=== PATIENT | female | born 1970 | race Caucasian/White ===

== ENCOUNTER 2020-01-01 14:29 | Emergency (ER) | payer MEDICAID ==
--- NOTE | 2020-01-01 16:07 | ER ---
Nurse's Notes [facility] Name: Liza Vuong Age: 49 yrs Sex: Female : 1970 Arrival Date: 01/01/2020 Time: 14:34 Bed 23 Private MD: Deedee Louise Diagnosis: Periapical abscess without sinus Presentation: 12/31 14:58 Chief complaint: Patient states: right side of mouth hurts, has bad tooth on top, has iw been bad for a couple months, is due to have it pulled next month. Coronavirus screen: At this time, the client does not indicate any symptoms associated with coronavirus-19. Ebola Screen: Patient negative for fever greater than or equal to 101.5 degrees Fahrenheit, and additional compatible Ebola Virus Disease symptoms Patient denies exposure to infectious person. Patient denies travel to an Ebola-affected area in the 21 days before illness onset. No symptoms or risks identified at this time. Initial Sepsis Screen: Does the patient meet any 2 criteria? No. Patient's initial sepsis screen is negative. Does the patient have a suspected source of infection? No. Patient's initial sepsis screen is negative. Risk Assessment: Do you want to hurt yourself or someone else? Patient reports no desire to harm self or others. Onset of symptoms was October 2019. 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 - Social history:: Smoking status: Patient reports the use of cigarette tobacco products, smokes one pack cigarettes per day. Screenin:04 Abuse screen: Denies threats or abuse. Denies injuries from another. Nutritional iw screening: No deficits noted. Tuberculosis screening: No symptoms or risk factors identified. Fall Risk None identified. Assessment: 15:03 General: Appears in no apparent distress. Behavior is calm, cooperative. Pain: iw Complains of pain in right cheek. Neuro: Level of Consciousness is awake, alert, obeys commands, Oriented to person, place, time, situation, Moves all extremities. Full function. Cardiovascular: Patient's skin is warm and dry. Respiratory: Respiratory effort is even, unlabored, Respiratory pattern is regular, symmetrical. EENT: Reports pain in right cheek. Derm: Skin is intact, is healthy with good turgor. Musculoskeletal: Range of motion: intact in all extremities. Vital Signs: 14:58 BP 108 / 67; Pulse 85; Resp 16; Temp 97.6; Pulse Ox 96% on R/A; Weight 91.63 kg; Height iw 5 ft. 5 in. (165.10 cm); Pain 10/10; 14:58 Body Mass Index 33.61 (91.63 kg, 165.10 cm) iw ED Course: 14:34 Patient arrived in ED. mr 14:34 Deedee Louise is Private Physician. mr 14:59 Triage completed. iw 15:02 Arm band placed on. iw 15:03 Rafaela Marquez, RN is Primary Nurse. iw 15:04 No provider procedures requiring assistance completed. Patient did not have IV access iw during this emergency room visit. 15:15 Patient has correct armband on for positive identification. iw 15:16 [facility]aran[facility]. jrYonny 15:16 Ramsey Valles MD is Attending Physician. jr8 Administered Medications: 16:11 Drug: TORadol 30 mg Route: IM; Site: right deltoid; iw 16:11 Drug: [place] (7.5 mg-325 mg) 1 tabs Route: PO; iw Outcome: 16:06 Discharge ordered by . demetrice 16:44 Discharged to home ambulatory, with family. iw 16:44 Condition: good 16:44 Discharge instructions given to patient, family, Instructed on discharge instructions, follow up and referral plans. medication usage, Demonstrated understanding of instructions, follow-up care, medications, Prescriptions given X 2. 16:45 Patient left the ED. iw Signatures: Ny Holliday Irene, RN RN iw Wyatt Naranjo, AYDEE BAJWA jr8
--- NOTE | 2020-01-01 16:07 | EDPHYS ---
Physician Documentation [facility] Name: Liza Vuong Age: 49 yrs Sex: Female : 1970 Arrival Date: 01/01/2020 Time: 14:34 Bed 23 Private MD: Deedee Louise ED Physician Ramsey Valles HPI: 12/31 15:28 This 49 yrs old Female presents to ER via Ambulatory with complaints of jr8 Toothache. 15:28 The patient presents with pain. The problem is located in the right upper jaw. Onset: jr8 The symptoms/episode began/occurred gradually, 2 day(s) ago. Duration: The symptoms are continuous. Modifying factors: The symptoms are alleviated by nothing, the symptoms are aggravated by chewing, talking. Associated signs and symptoms: The patient has no apparent associated signs or symptoms. Severity of symptoms: At their worst the symptoms were moderate, in the emergency department the symptoms are unchanged. The patient has experienced similar episodes in the past, a few times. The patient has not recently seen a physician. 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 - Social history:: Smoking status: Patient reports the use of cigarette tobacco products, smokes one pack cigarettes per day. ROS: 15:28 Eyes: Negative for injury, pain, redness, and discharge, Neck: Negative for injury, jr8 pain, and swelling, Cardiovascular: Negative for chest pain, palpitations, and edema, Respiratory: Negative for shortness of breath, cough, wheezing, and pleuritic chest pain, Abdomen/GI: Negative for abdominal pain, nausea, vomiting, diarrhea, and constipation, Back: Negative for injury and pain, MS/Extremity: Negative for injury and deformity, Skin: Negative for injury, rash, and discoloration, Neuro: Negative for headache, weakness, numbness, tingling, and seizure. 15:28 ENT: Positive for dental pain, Gum pain Exam: 15:28 Constitutional: This is a well developed, well nourished patient who is awake, alert, jr8 and in no acute distress. Head/Face: Normocephalic, atraumatic. Eyes: Pupils equal round and reactive to light, extra-ocular motions intact. Lids and lashes normal. Conjunctiva and sclera are non-icteric and not injected. Cornea within normal limits. Periorbital areas with no swelling, redness, or edema. Neck: Trachea midline, no thyromegaly or masses palpated, and no cervical lymphadenopathy. Supple, full range of motion without nuchal rigidity, or vertebral point tenderness. No Meningismus. Cardiovascular: Regular rate and rhythm with a normal S1 and S2. No gallops, murmurs, or rubs. Normal PMI, no JVD. No pulse deficits. Respiratory: Lungs have equal breath sounds bilaterally, clear to auscultation and percussion. No rales, rhonchi or wheezes noted. No increased work of breathing, no retractions or nasal flaring. Skin: Warm, dry with normal turgor. Normal color with no rashes, no lesions, and no evidence of cellulitis. MS/ Extremity: Pulses equal, no cyanosis. Neurovascular intact. Full, normal range of motion. Neuro: Awake and alert, GCS 15, oriented to person, place, time, and situation. Cranial nerves II-XII grossly intact. Motor strength 5/5 in all extremities. Sensory grossly intact. Cerebellar exam normal. Normal gait. 15:28 ENT: Exam is negative for earache, ear discharge, TM abnormalities, nasal discharge, Mouth: Lips: moist, Oral mucosa: pink and intact, moist, Gums: reddened, swollen, on the upper right second molar and upper right first molar, Tongue: is moist, Posterior pharynx: Airway: patent, Tonsils: are normal in appearance, Uvula: midline, swelling, is not appreciated, Dental exam: dental caries, that is moderate, diffusely, fractured teeth are noted, specifically the upper right second molar (#2) and upper right first molar (#3), pain, that is moderate, specifically in the upper right second molar (#2) and upper right first molar (#3). Vital Signs: 14:58 BP 108 / 67; Pulse 85; Resp 16; Temp 97.6; Pulse Ox 96% on R/A; Weight 91.63 kg; Height iw 5 ft. 5 in. (165.10 cm); Pain 10/10; 14:58 Body Mass Index 33.61 (91.63 kg, 165.10 cm) iw MDM: 15:17 Patient medically screened. jr8 15:27 Data reviewed: vital signs, nurses notes, and as a result, I will discharge patient. jr8 Data interpreted: Pulse oximetry: on room air is 96 %. Interpretation: normal. Counseling: I had a detailed discussion with the patient and/or guardian regarding: the historical points, exam findings, and any diagnostic results supporting the discharge/admit diagnosis, the need for outpatient follow up, a dentist, to return to the emergency department if symptoms worsen or persist or if there are any questions or concerns that arise at home. Response to treatment: the patient's symptoms have mildly improved after treatment. ED course: Discussed with patient. No discernable abscess noted to gum line to drain. Swelling is noted. Will put on pain medicine and Abx. Needs to continue to f/u with dentist. If worse to come back . 12/31 15:27 Order name: Urine Microscopic Only; Complete Time: 23:01 jr8 12/31 16:09 Order name: Urine Dipstick--Ancillary (enter results); Complete Time: 23:01 bd 12/31 15:27 Order name: Urine Dipstick-Ancillary (obtain specimen); Complete Time: 16:11 jr8 Administered Medications: 16:11 Drug: TORadol 30 mg Route: IM; Site: right deltoid; iw 16:11 Drug: [place] (7.5 mg-325 mg) 1 tabs Route: PO; iw Disposition: 17:48 Co-signature as Attending Physician, Ramsey Valles MD. rn Disposition: 01/01/20 16:06 Discharged to Home. Impression: Periapical abscess without sinus. - Condition is Stable. - Discharge Instructions: Dental Abscess, Dental Pain, Root Canal. - Prescriptions for Clindamycin HCl 300 mg Oral Capsule - take 1 capsule by ORAL route every 6 hours for 10 days; 40 capsule. Ibuprofen 800 mg Oral Tablet - take 1 tablet by ORAL route every 12 hours As needed take with food; 20 tablet. - Medication Reconciliation Form, Thank You Letter, Antibiotic Education, Prescription Opioid Use form. - Follow up: Private Physician; When: 2 - 3 days; Reason: Recheck today's complaints, Continuance of care, Re-evaluation by your physician. - Problem is new. - Symptoms have improved. Signatures: Dispatcher [employer] EDRafaela Santos RN RN iw Nieto, Roman, MD MD rn Roszak, Josh, PA PA jr8 Corrections: (The following items were deleted from the chart) 16:45 16:06 01/01/2020 16:06 Discharged to Home. Impression: Periapical abscess without iw sinus. Condition is Stable. Forms are Medication Reconciliation Form, Thank You Letter, Antibiotic Education, Prescription Opioid Use. Follow up: Private Physician; When: 2 - 3 days; Reason: Recheck today's complaints, Continuance of care, Re-evaluation by your physician. Problem is new. Symptoms have improved. jr8
[2020-01-01] MEDS ORDERED: HYDROCODONE/APAP 7.5/325 MG TAB ONE (16:18)
[2020-01-01] MEDS ORDERED: KETOROLAC 30 MG/ML INJ ONE (16:18)
[2020-01-01 16:30] LABS: Urine Blood NEGATIVE (NEG); Urine Glucose NEGATIVE (NEG); Urine Protein TRACE (NEG); Urine Specific Gravity 1.025 (1.005-1.030); Urine pH 7.5 (5.0-7.0)
[2020-01-01 16:36] LABS: Urine Bacteria <20 /HPF (<20); Urine Culture Reflex Order NOT NEEDED; Urine RBC <5 /HPF (NONE SEEN)
[2020-01-01 16:37] LABS: Calcium Oxalate Crystals- Ur FEW (NONE SEEN); Urine Mucus 4+ /HPF (NONE SEEN)
[2020-01-01 17:32] VITALS: BP 108/67; TEMP 97.6; O2SAT 96
== END 2020-01-01 16:45 | disposition home or self-care (01) ==
LOC: ER 14:29
DX: K04.7 Periapical abscess without sinus (principal); Z88.0 Allergy status to penicillin; Z91.040 Latex allergy status; F17.210 Nicotine dependence, cigarettes, uncomplicated
CPT/HCPCS: 81003; 81015; 96372; 99283

== ENCOUNTER 2020-06-01 13:27 | Emergency (ER) | payer MEDICAID ==
--- NOTE | 2020-06-01 14:26 | RAD REPORT ---
EXAM DESCRIPTION: CT - Head C Spine Mpr Wo Con - 06/01/2020 1:54 pm CLINICAL HISTORY: Seizure. Head and neck injury status post fall. Head and neck pain COMPARISON: None. TECHNIQUE: Computed axial tomography of the head and cervical spine was obtained. Sagittal and coronal reconstruction was performed. All CT scans are performed using dose optimization technique as appropriate and may include automated exposure control or mA/KV adjustment according to patient size. FINDINGS: An intracranial bleed is not seen. The ventricles are normal in caliber. An extra-axial fl uid collection is not noted.Fluid within the visualized sinuses and mastoids is not seen A cervical fracture is not visualized. No dislocation is noted. Mild posterior subluxation C5 on C6. Spondylosis results in mild central spinal stenosis. Moderate foraminal stenosis is present. Left posterior-lateral disc osteophyte complex C6-7 results in mild compression upon the spinal cord. IMPRESSION: No acute intracranial abnormality is seen. A cervical fracture is not visualized. Mild posterior subluxation C5 on C6. Spondylosis results in mild central spinal stenosis. Moderate foraminal stenosis is present. Left posterior-lateral disc osteophyte complex C6-7 results in mild compression upon the spinal cord. If the patient continues to have symptoms to suggest intracranial /spinal cord pathology then MRI wou ld be recommended
[2020-06-01] MEDS ORDERED: LIDOCAINE 1% MPF 30 ML VIAL ONE (14:29)
[2020-06-01 14:46] LABS: Protime INR 0.97
[2020-06-01 14:48] LABS: Absolute Lymphocytes (CBC) 2.9 K/uL (0.7-4.9); Basophils % 0.1 % (0-1.3); Hematocrit 42.4 % (36.0-45.0); Lymphocytes % 34.2 % (15.3-44.8); MPV 9.1 fL (7.6-11.3); RBC Red Blood Cell Count 4.33 M/uL (3.86-4.86)
[2020-06-01 14:59] LABS: ALT/SGPT 18 U/L (12-78); AST/SGOT 14 U/L (15-37); Albumin 3.6 g/dL (3.4-5.0); Alkaline Phosphatase 127 U/L (45-117); BUN Blood Urea Nitrogen 10 mg/dL (7-18); Bicarbonate 24 mmol/L (21-32); Bilirubin Direct < 0.1 mg/dL (0-0.2); Bilirubin Total 0.3 mg/dL (0.2-1.0); Glucose Level 86 mg/dL (74-106); Potassium 3.8 mmol/L (3.5-5.1); Protein, Total 6.9 g/dL (6.4-8.2); Sodium Level 144 mmol/L (136-145)
[2020-06-01 15:07] LABS: Barbiturates NEGATIVE (NEGATIVE); Benzodiazepines NEGATIVE (NEGATIVE); Cocaine NEGATIVE (NEGATIVE); METHAMPHETAM NEGATIVE (NEGATIVE); Methadone NEGATIVE (NEGATIVE); Opiates NEGATIVE (NEGATIVE); Phencyclidine NEGATIVE (NEGATIVE); THC Cannibis NEGATIVE (NEGATIVE)
[2020-06-01 15:23] LABS: Urine Blood NEGATIVE (NEG); Urine Glucose NEGATIVE (NEG); Urine Protein NEGATIVE (NEG); Urine pH 6.5 (5.0-7.0)
--- NOTE | 2020-06-01 15:28 | ER ---
Nurse's Notes [facility] Name: Liza Vuong Age: 50 yrs Sex: Female : 1970 Arrival Date: 06/01/2020 Time: 13:33 Bed 4 Private MD: Diagnosis: Epilepsy and recurrent seizures;Scalp Laceration Presentation: 06/01 13:34 Chief complaint: EMS states: about 30mins ago patient had a seizure fell from standing zb and hit her head on a chair. + LOC. patient has 1 inch laceration to the back of the head . VSS. patient aox4 upon EMS arrival . Coronavirus screen: At this time, the client does not indicate any symptoms associated with coronavirus-19. Ebola Screen: No symptoms or risks identified at this time. Initial Sepsis Screen: Does the patient meet any 2 criteria? No. Patient's initial sepsis screen is negative. Does the patient have a suspected source of infection? No. Patient's initial sepsis screen is negative. Risk Assessment: Do you want to hurt yourself or someone else? Patient reports no desire to harm self or others. 13:34 Acuity: RUDDY 3 zb 13:34 Method Of Arrival: EMS: [facility] zb 14:53 Care prior to arrival: None. Mechanism of Injury: Fall from standing position. an zb unknown distance. Trauma event details: Injury occurred in the [facility]. 14:54 Onset of symptoms was June 01, 2020. zb Triage Assessment: 13:41 General: Appears in no apparent distress. uncomfortable, Behavior is calm, cooperative, zb appropriate for age. Pain: Complains of pain in left parietal area and right parietal area Pain does not radiate. Pain currently is 5 out of 10 on a pain scale. Quality of pain is described as tender, Pain began suddenly, 30 min ago. Is continuous. EENT: No signs and/or symptoms were reported regarding the EENT system. Neuro: Level of Consciousness is awake, alert, obeys commands, Oriented to person, place, time, situation, Moves all extremities. Gait is unsteady, Speech is normal, Facial symmetry appears normal, Pupils are PERRLA. Cardiovascular: Capillary refill < 3 seconds Patient's skin is warm and dry. Respiratory: Airway is patent Trachea midline Respiratory effort is even, unlabored, Respiratory pattern is regular, symmetrical. GI: Abdomen is round non-distended. : No signs and/or symptoms were reported regarding the genitourinary system. Derm: Skin is healthy with good turgor, Skin is dry, Skin is normal, Wound noted scalp. Musculoskeletal: Range of motion: intact in all extremities. Injury Description: Laceration sustained to scalp is clean, bleeding moderately, was sustained 30-60 minutes ago. a small amount of bleeding noted at this time. 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 - Social history:: Smoking status: Patient reports the use of cigarette tobacco products, smokes one pack cigarettes per day. - Immunization history: Last tetanus immunization: unknown. Screenin:56 Abuse screen: Denies threats or abuse. Denies injuries from another. Tuberculosis zb screening: No symptoms or risk factors identified. Fall risk At risk due to prior history of falls, history of seizures. . 14:52 Fall Risk Fall in past 12 months (25 points). Secondary diagnosis (15 points) seizures, zb IV access (20 points). Ambulatory Aid- None/Bed Rest/Nurse Assist (0 pts). Gait- Normal/Bed Rest/Wheelchair (0 pts) Mental Status- Oriented to own ability (0 pts). Total Mejias Fall Scale indicates High Risk Score (45 or more points). Fall prevention measures have been instituted. Side Rails Up X 2 Placed Close to Nursing Station Frequent Obs/Assessments Occuring As available patient and family educated on Fall Prevention Program and Strategies. 14:54 Nutritional screening: No deficits noted. zb Primary Survey: 13:52 NO uncontrolled hemorrhage observed. Breathing/Chest: Respiratory pattern: regular, zb Respiratory effort: spontaneous, unlabored, Breath sounds: clear. Circulation: Cardiac rhythm: sinus bradycardia Heart tones present. Pulses: palpable right radial artery and left radial artery. Skin color: pink. Disability Alert. Exposure/Environment: Obvious injury(ies) are noted at this time: laceration scalp of head. Reassessment Airway Airway Patent Breathing/Chest Respiratory pattern Regular Respiratory effort Spontaneous Unlabored Breath sounds Clear Chest inspection Symmetrical Circulation Heart rhythm Sinus julisa Heart tones Present Pulses Palpable Color Cucumber Temperature Warm Disability Alert. Secondary Survey: 13:54 HEENT: Head Other 1 inch laceration to back of head. Gastrointestinal: No deficits zb noted. : No deficits noted. Musculoskeletal: No deficits noted. Range of motion: intact in all extremities. Assessment: 13:46 Reassessment: see triage note. zb 14:55 Reassessment: Patient appears in no apparent distress at this time. Patient and/or zb family updated on plan of care and expected duration. Pain level reassessed. Patient is alert, oriented x 3, equal unlabored respirations, skin warm/dry/pink. pt remain bradycardia. pt ambulated to restroom, gait steady and even. 15:59 Reassessment: Patient appears in no apparent distress at this time. Patient and/or zb family updated on plan of care and expected duration. Pain level reassessed. Patient is alert, oriented x 3, equal unlabored respirations, skin warm/dry/pink. no changes at this time. discharge information give. patient has steady gait. informed on how to care for nilda. Vital Signs: 13:34 BP 124 / 66; Pulse 55; Resp 14; Temp 97.3; Pulse Ox 99% ; Weight 88.9 kg; Height 5 ft. zb 5 in. (165.10 cm); Pain 5/10; 14:55 BP 93 / 72; Pulse 54; Resp 18; Pulse Ox 100% on R/A; zb 15:05 BP 108 / 65; Pulse 55; Resp 18; Pulse Ox 96% on R/A; zb 15:59 BP 99 / 66; Pulse 54; Resp 18; Pulse Ox 99% on R/A; zb 13:34 Body Mass Index 32.62 (88.90 kg, 165.10 cm) zb Welch Coma Score: 14:50 Eye Response: spontaneous(4). Verbal Response: oriented(5). Motor Response: obeys zb commands(6). Total: 15. Trauma Score (Adult): 14:50 Eye Response: spontaneous(1); Verbal Response: oriented(1); Motor Response: obeys zb commands(2); Systolic BP: > 89 mm Hg(4); Respiratory Rate: 10 to 29 per min(4); Welch Score: 15; Trauma Score: 12 ED Course: 13:33 Patient arrived in ED. zb 13:33 Fredy Dukes PA is PHCP. jmm 13:33 Ramsey Valles MD is Attending Physician. manishm 13:36 Triage completed. zb 13:47 Corine Cronin, RN is Primary Nurse. zb 13:54 CT Head C Spine In Process Unspecified. EDMS 14:18 Initial lab(s) drawn, by md, sent to lab. Inserted saline lock: 20 gauge in left em1 antecubital area, using aseptic technique. Blood collected. 14:51 Assist provider with laceration repair on scalp using nilda. Set up tray. Performed zb by Fredy BAJWA Patient tolerated well. 14:51 Arm band placed on left wrist. zb 14:54 Patient maintains SpO2 saturation greater than 95% on room air. zb 14:54 Patient has correct armband on for positive identification. claim professional on. Pulse zb ox on. NIBP on. Door closed. Noise minimized. Warm blanket given. 16:00 IV discontinued, intact, bleeding controlled, No redness/swelling at site. Pressure zb dressing applied. 16:01 Thermoregulation: warm blanket given to patient. zb Administered Medications: 15:01 Not Given (providers discretion ): Lidocaine (1 %) 20 ml 20 ml Infiltration once; to zb bedside Intake: 14:50 PO: 0ml; Total: 0ml. zb Outcome: 15:28 Discharge ordered by . manish 16:00 Discharged to home via wheelchair. zb 16:00 Condition: stable 16:00 Discharge instructions given to patient, Instructed on discharge instructions, follow up and referral plans. Demonstrated understanding of instructions, follow-up care. 16:00 Patient's length of stay was not longer than 2 hours. zb 16:06 Patient left the ED. irving Signatures: Dispatcher [employer] EDMS Fredy Dukes PA PA jmm Martinez, Eric em1 Corine Cronin, JACK RN irving
--- NOTE | 2020-06-01 15:29 | EDPHYS ---
Physician Documentation [facility] Name: Liza Vuong Age: 50 yrs Sex: Female : 1970 Arrival Date: 06/01/2020 Time: 13:33 Bed 4 Private MD: ED Physician Ramsey Valles HPI: 06/01 13:39 This 50 yrs old Female presents to ER via EMS with complaints of Fall Injury, jmm Seizure. 13:39 The patient presents after having a single isolated seizure. Character of seizure(s): jmm Loss of consciousness: the patient experienced loss of consciousness, Motor activity: generalized, Incontinence: none. Seizure onset: today. Seizure Hx: Cause: head injury, Usual frequency:. Associated injury: Head/face:. 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 Patient states she takes tegretol and topiramate for seizures. Patient states she normally has 2 seizures a day. . 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 - Social history:: Smoking status: Patient reports the use of cigarette tobacco products, smokes one pack cigarettes per day. - Immunization history: Last tetanus immunization: unknown. ROS: 13:39 Constitutional: Negative for fever, chills, and weight loss, Cardiovascular: Negative jmm for chest pain, palpitations, and edema, Respiratory: Negative for shortness of breath, cough, wheezing, and pleuritic chest pain. 13:39 Neuro: Positive for headache, loss of consciousness, seizure activity. 13:39 All other systems are negative. Exam: 13:39 Constitutional: This is a well developed, well nourished patient who is awake, alert, jmm and in no acute distress. 13:39 Eyes: EOMI, no conjunctival erythema appreciated ENT: Moist Mucus Membranes Neck: Trachea midline, Supple Chest/axilla: Normal chest wall appearance and motion. Cardiovascular: Regular rate and rhythm. No edema appreciated Respiratory: Normal respirations, no respiratory distress appreciated Abdomen/GI: Non distended, soft Back: Normal ROM 13:39 MS/ Extremity: Moves all extremities, no obvious deformities appreciated, no edema noted to the lower extremities Neuro: Awake and alert, normal gait Psych: Behavior is normal, Mood is normal, Patient is cooperative and pleasant 13:39 Head/face: Noted is a laceration(s), that is linear, 3 cm(s). 13:39 Skin: injury, laceration(s), the wound is approximately 3 cm(s), of the scalp. Vital Signs: 13:34 BP 124 / 66; Pulse 55; Resp 14; Temp 97.3; Pulse Ox 99% ; Weight 88.9 kg; Height 5 ft. zb 5 in. (165.10 cm); Pain 5/10; 14:55 BP 93 / 72; Pulse 54; Resp 18; Pulse Ox 100% on R/A; zb 15:05 BP 108 / 65; Pulse 55; Resp 18; Pulse Ox 96% on R/A; zb 15:59 BP 99 / 66; Pulse 54; Resp 18; Pulse Ox 99% on R/A; zb 13:34 Body Mass Index 32.62 (88.90 kg, 165.10 cm) zb Skye Coma Score: 14:50 Eye Response: spontaneous(4). Verbal Response: oriented(5). Motor Response: obeys zb commands(6). Total: 15. Trauma Score (Adult): 14:50 Eye Response: spontaneous(1); Verbal Response: oriented(1); Motor Response: obeys zb commands(2); Systolic BP: > 89 mm Hg(4); Respiratory Rate: 10 to 29 per min(4); [place] Score: 15; Trauma Score: 12 Laceration: 15:27 Wound Repair of 3cm ( 1.2in ) subcutaneous laceration. Distal neuro/vascular/tendon jmm intact. Anesthesia: Local anesthetic administered with 1% lidocaine. Wound prep: Simple cleansing by nurse. Skin closed with 3 1-0 Karlie using staple gun. Patient tolerated well. MDM: 13:39 Patient medically screened. [facility] 15:25 Data reviewed: vital signs, nurses notes. Counseling: I had a detailed discussion with [facility] the patient and/or guardian regarding: the historical points, exam findings, and any diagnostic results supporting the discharge/admit diagnosis, lab results, radiology results, the need for outpatient follow up, to return to the emergency department if symptoms worsen or persist or if there are any questions or concerns that arise at home. ED course: Patient is alert and non toxic in appearance in the ED. No seizure activity in the ED. Advised to follow up with neuro for reevaluation. Patient otherwise given strict return precautions. Patient understood and agrees with the plan of care. . 06/01 13:34 Order name: Acetaminophen; Complete Time: 15:13 [facility] 06/01 13:34 Order name: Basic Metabolic Panel; Complete Time: 15:13 [facility] 06/01 13:34 Order name: CBC with Diff; Complete Time: 14:50 [facility] 06/01 13:34 Order name: ETOH Level; Complete Time: 14:45 [facility] 06/01 13:34 Order name: Hepatic Function; Complete Time: 15:13 [facility] 06/01 13:34 Order name: PT-INR; Complete Time: 14:50 [facility] 06/01 13:34 Order name: Ptt, Activated; Complete Time: 14:50 [facility] 06/01 13:34 Order name: Salicylate; Complete Time: 15:13 [facility] 06/01 13:34 Order name: Urine Drug Screen; Complete Time: 15:13 [facility] 06/01 13:34 Order name: Carbamazepine (tegretol); Complete Time: 15:13 [facility] 06/01 13:34 Order name: CT Head C Spine; Complete Time: 14:29 [facility] 06/01 14:49 Order name: Urine Dipstick--Ancillary (enter results); Complete Time: 15:26 06/01 14:49 Order name: Urine --Ancillary (enter results); Complete Time: 15:26 06/01 13:34 Order name: EKG; Complete Time: 13:35 [facility] 06/01 13:34 Order name: EKG - Nurse/Tech; Complete Time: 14:42 [facility] 06/01 13:34 Order name: IV Saline Lock; Complete Time: 14:18 [facility] 06/01 13:34 Order name: Labs collected and sent; Complete Time: 14:18 [facility] 06/01 13:34 Order name: Urine Dipstick-Ancillary (obtain specimen); Complete Time: 14:42 [facility] 06/01 14:22 Order name: Labs - recollect needed: recollect lavender tube; Complete Time: 14:42 eb Administered Medications: 15:01 Not Given (providers discretion ): Lidocaine (1 %) 20 ml 20 ml Infiltration once; to zb bedside Disposition: 16:21 Co-signature as Attending Physician, Ramsey Valles MD. rn Disposition: 06/01/20 15:28 Discharged to Home. Impression: Epilepsy and recurrent seizures, Scalp Laceration. - Condition is Stable. - Discharge Instructions: Laceration Care, Adult, Seizure, Adult. - Medication Reconciliation Form, Thank You Letter, Antibiotic Education, Prescription Opioid Use form. - Follow up: Private Physician; When: 1 week; Reason: Recheck today's complaints, Continuance of care, Staple/Suture removal, Re-evaluation by your physician. Signatures: Dispatcher [employer] EDMS Fredy Dukes PA PA jmm Nieto, Roman, MD MD rn Botello, Elizabeth eb Brown, Zipporah, RN RN zb Corrections: (The following items were deleted from the chart) 16:05 15:28 06/01/2020 15:28 Discharged to Home. Impression: Epilepsy and recurrent seizures; zb Scalp Laceration. Condition is Stable. Forms are Medication Reconciliation Form, Thank You Letter, Antibiotic Education, Prescription Opioid Use. Follow up: Private Physician; When: 1 week; Reason: Recheck today's complaints, Continuance of care, Staple/Suture removal, Re-evaluation by your physician. [facility] 16:06 16:05 06/01/2020 15:28 Discharged to Home. Impression: Epilepsy and recurrent seizures; zb Scalp Laceration. Condition is Stable. Discharge Instructions: Seizure, Adult, Laceration Care, Adult. Forms are Medication Reconciliation Form, Thank You Letter, Antibiotic Education, Prescription Opioid Use. Follow up: Private Physician; When: 1 week; Reason: Recheck today's complaints, Continuance of care, Staple/Suture removal, Re-evaluation by your physician. [place]
[2020-06-01 16:11] VITALS: TEMP 97.3
[2020-06-01 16:14] VITALS: BP 99/66; O2SAT 99
== END 2020-06-01 16:06 | disposition home or self-care (01) ==
LOC: ER 13:27
PROC: 0JQ00ZZ Repair Scalp Subcutaneous Tissue and Fascia, Open Approach (ICD-10-PCS; principal; 2020-06-01)
DX: S01.01XA Laceration without foreign body of scalp, initial encounter (principal); W19.XXXA Unspecified fall, initial encounter; Y93.9 Activity, unspecified; Y92.9 Unspecified place or not applicable; Z88.0 Allergy status to penicillin; Z88.5 Allergy status to narcotic agent; Z91.040 Latex allergy status; Z91.048 Other nonmedicinal substance allergy status; F17.210 Nicotine dependence, cigarettes, uncomplicated
CPT/HCPCS: 36415; 70450; 72125; 80048; 80076; 80156; 80307; 80320; 80329; 81003; 81025; 85025; 85610; 85730; 99285

== ENCOUNTER 2021-11-14 15:27 | Emergency (ER) | payer OTHER ==
--- OUTSIDE RECORDS SUMMARY | 2021-11-14 15:32 | XMS REPORT | Continuity of Care Document ---
:1970 Author Organization [facility] t Address [address] [place] [address] Care Team Providers Name Role Phone Funmilayo Louise Primary Care Physician Vickey MCDONALD, Tiffanie Good Attending Clinician Payers Payer Name Policy Type Policy Number Effective Date Expiration Date S ource Problems Condition Condition Condition Status Onset Resolution Last Treating Co mments Source Name Details Category Date Date Treatment Clinician Date Seizures Seizures Disease Active 2020-04 Unive rs 0-11 ity of 00:00: [place] 00 [facility] Branch Cigarette Cigarette Disease Active 2020-04 Uni vers nicotine nicotine 0-11 [place] without 00 Medical complicati complicati Br anch on on Epilepsy Epilepsy Problem Active 2020-11-23 Memoria characteri characteri 01:26:32 l zed by zed by Adán 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 (disorder) (disorder) Active Problem 11/23/2020 [facility] Pulmonary Pulmonary Problem Active 2020-11-23 Memoria emphysema emphysema 01:26:32 l (disorder) (disorder) He rmann Active Problem 11/23/2020 [facility] Simple Simple Problem Active 2020-11-23 Trell hany obesity obesity 01:26:32 l (disorder) (disorder) He rmann Active Problem 11/23/2020 [facility] Depressive Problem Active 2020-11-23 M emoria disorder Depressive 01:26:32 l (disorder) disorder Herm laxmi (disorder) Active Problem 11/23/2020 [facility] Dissociati Dissociat Problem Active 2020-11-23 Memoria ve leisa 01:26:32 l convulsion convulsion He henry s s (disorder) (disorder) Active Problem 11/23/2020 [facility] Dizziness Dizziness Problem Active 2020-11-23 Memoria (finding) (finding) 01:26:32 l Active Adán Problem 11/23/2020 [facility] Headache Headache Problem Active 2020-11-23 Memoria (finding) (finding) 01:26:32 l Active [place] Problem 11/23/2020 [facility] Allergies, Adverse Reactions, Alerts Allergy Allergy Status Severity Reaction(s) Onset Inactive Treating Comm ents Source Name Type Date Date Clinician Latex Propensi Active Rash 2020-04 Univers ty to 0-11 ity of adverse 00:00: [place] reaction 00 Medical s Branch Penicill Propensi Active Rash Univer s ins ty to 4-24 ity of adverse 00:00: [place] reaction 00 Medical s Branch Red Dye Propensi Active Itching Univer s ty to 4-24 ity of adverse 00:00: [place] reaction 00 Medical s Branch Sertrali Propensi Active Palpitations Univers ne ty to 4-24 ity of adverse 00:00: [place] reaction 00 Medical s Branch penicill penicill Active Memori a in in l [place] Zoloft Zoloft Active Memoria l Adán Latex Latex Active Memoria l [place] Social History Social Habit Start Date Stop Date Quantity Comments Source History of tobacco Cigarette Smoker University of use [facility] Exposure to 2021-10-11 2021-10-21 Not sure University SARS-CoV-2 (event) 00:00:00 10:34:00 [facility] Cigarettes smoked 2021-10-21 2021-10-21 Univers ity of current (pack per 00:00:00 00:00:00 ) - Reported Branch Tobacco use and 2021-10-21 2021-10-21 Smokeless Universit y of exposure 00:00:00 00:00:00 tobacco non-user [facility] Social History 2020-02-02 2020-02-02 [facility] reina 19:33:42 19:33:42 Sex [birth year] Universit y of 00:00:00 00:00:00 [facility] Smoking Status Start Date Stop Date Source Smokes tobacco daily 2021-10-21 00:00:00 Univers ity of [facility] Medications Ordered Filled Start Stop Current Ordering Indication Dosage Frequency Signature Comments Components Source Medication Medication Date Date Medication? Clinician (SIG) Name Name citalopram 2021- No 10mg Take 10 mg Univers 10 mg 7-12 07-12 by mouth ity of tablet 10:56: 00:00 every [place] 12 :00 morning. Medical Branch citalopram 2021- No 10mg Take 10 mg Univers 10 mg 7-12 07-12 by mouth ity of tablet 10:56: 00:00 every [place] 12 :00 morning. Medical Branch cariprazine 2021- No 4.5mg Take 4.5 Univers (VRAYLAR) 7-12 07-12 mg by ity of 4.5 mg Cap 10:55: 00:00 mouth [place] 49 :00 every Medical evening. Branch cariprazine 2021- No 4.5mg Take 4.5 Univers (VRAYLAR) 7-12 07-12 mg by ity of 4.5 mg Cap 10:55: 00:00 mouth [place] 49 :00 every Medical evening. Branch carBAMazepi Yes 100mg Take 100 U nivers ne 200 mg 7-12 mg by ity of 12 hr 10:45: mouth 2 [place] capsule 55 (two) Medical times [place] daily. topiramate Yes 200mg Take 200 Un richar 200 mg 7-12 mg by ity of tablet 10:45: mouth 2 [place] [address] (two) Medical times Branch daily. MULTIVITAMI Yes 1{tbl} Take 1 Un richar N ORAL 7-12 tablet by ity of 10:45: mouth [place] [address] daily. Medical Branch valACYclovi 2021-0 Yes 1g Take 1 g Un richar r 1 gram 7-12 by mouth ity of tablet 10:45: daily. [place] [address] Medical Branch carBAMazepi 2021-0 Yes 100mg Take 100 U nivers ne 200 mg 7-12 mg by ity of 12 hr 10:45: mouth 2 [place] capsule 55 (two) Medical times Branch daily. topiramate 2021-0 Yes 200mg Take 200 Un richar 200 mg 7-12 mg by ity of tablet 10:45: mouth 2 [place] 55 (two) Medical times Branch daily. MULTIVITAMI Yes 1{tbl} Take 1 Un richar N ORAL 7-12 tablet by ity of 10:45: mouth [place] 55 daily. Medical Branch valACYclovi Yes 1g Take 1 g Un richar r 1 gram 7-12 by mouth ity of tablet 10:45: daily. [place] 55 Medical Branch busPIRone Yes 10mg Take 10 mg Un richar 10 mg 7-09 by mouth ity of tablet 00:00: in the [place] 00 morning. Medical Branch busPIRone Yes 10mg Take 10 mg Un richar 10 mg 7-09 by mouth ity of tablet 00:00: in the [place] 00 morning. Medical Branch VRAYLAR 6 Yes 1{tbl} Take 1 Univ ers mg Cap 7-06 tablet by ity of 00:00: mouth [place] 00 every Medical evening. Branch VRAYLAR 6 Yes 1{tbl} Take 1 Univ ers mg Cap 7-06 tablet by ity of 00:00: mouth [place] 00 every Medical evening. 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, Height, 88.636, kg, 04/30/20 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, Weight topiramate 2019-04 Yes 200 mg = 1 M emoria 200 mg oral 0-23 tab, PO, l tablet 19:51: BID, # 60 Arturo n 00 tab, 3 Refill(s), Pharmacy: [facility] [place] [place], 165.1, cm, 02/02/20 14:00:00 CDT, Height, 86.364, kg, 02/02/20 14:00:00 CDT, Weight Prazosin 2019-04 Yes See Memoria 0-23 Instructio l 19:05: ns, 1mg 4 [place] 00 times @ night, 0 Refill(s) Trintellix 2019-04 Yes 20 mg, PO, M emoria 0-23 Daily, 0 l 19:05: Refill(s) [place] Vraylar 2019-04 Yes 4.5 mg, Memoria 0-23 PO, l 19:05: Bedtime, 0 Adán 00 Refill(s) valacyclovi 2019-04 Yes 1 gm, PO, M emoria r 0-23 QAM, # 21 l 19:05: tab, 0 [place] 00 Refill(s) Carbamazepi 2019-04 Yes 100 mg, Mem oria ne 0-23 PO, BID, 0 l 19:05: Refill(s) Adán 00 topiramate 2019-04 No 100 mg, Trell hany 0-23 PO, BID, 0 l 19:05: Refill(s) Adán 00 Vital Signs Vital Name Observation Time Observation Value Comments Source Body height 2021-10-21 15:50:00 [facility]6 [facility] Body weight 2021-10-21 15:50:00 86.637 [facility] BMI 2021-10-21 15:50:00 32.79 kg/m2 [facility] Oxygen saturation in 2021-10-21 15:50:00 93 /min [facility] Arterial blood by [facility] Pulse oximetry Branch Systolic blood 2021-10-21 15:50:00 119 mm[Hg] Univer sity of pressure [facility] Diastolic blood 2021-10-21 15:50:00 61 mm[Hg] Unive rsity of [facility] Heart rate 2021-10-21 15:50:00 54 /min [facility] Respiratory rate 2021-10-21 15:50:00 20 /min [facility] Systolic (mm Hg) 2020-11-20 18:45:00 Trell rial Adán Diastolic (mm Hg) 2020-11-20 18:45:00 Mem orial Adán Heart Rate 2020-11-20 18:45:00 [facility] [place] Respitory Rate 2020-11-20 18:45:00 Memori al [place] Height 2020-11-20 18:45:00 167.64 cm Memorial Adán Weight 2020-11-20 18:45:00 [facility] [place] BMI Calculated 2020-11-20 18:45:00 Memori al Adán Systolic (mm Hg) 2020-07-11 18:12:00 Trell rial [place] Diastolic (mm Hg) 2020-07-11 18:12:00 Mem orial Adán Heart Rate 2020-07-11 18:12:00 Memorial Adán Respitory Rate 2020-07-11 18:12:00 Memori al Adán Height 2020-07-11 18:12:00 165.1 cm [facility] [place] Weight 2020-07-11 18:12:00 [facility] [place] BMI Calculated 2020-07-11 18:12:00 Memori al [place] Systolic (mm Hg) 2020-06-14 21:55:00 Trell rial [place] Diastolic (mm Hg) 2020-06-14 21:55:00 Mem orial [place] Heart Rate 2020-06-14 21:55:00 Memorial Adán Respitory Rate 2020-06-14 21:55:00 Memori al Adán Height 2020-06-14 21:55:00 165.1 cm [facility] [place] Weight 2020-06-14 21:55:00 [facility] [place] BMI Calculated 2020-06-14 21:55:00 Memori al [place] Systolic (mm Hg) 2020-03-15 19:13:00 Trell rial [place] Diastolic (mm Hg) 2020-03-15 19:13:00 Mem orial Adán Heart Rate 2020-03-15 19:13:00 Memorial Adán Respitory Rate 2020-03-15 19:13:00 Memori al [place] Height 2020-03-15 19:13:00 165.1 cm Memorial Adán Weight 2020-03-15 19:13:00 [facility] [place] BMI Calculated 2020-03-15 19:13:00 Memori al Adán Weight 2020-02-02 19:00:00 [facility] [place] BMI Calculated 2020-02-02 19:00:00 Memori al [place] Systolic (mm Hg) 2020-02-02 19:00:00 Trell rial [place] Diastolic (mm Hg) 2020-02-02 19:00:00 Mem orial Adán Heart Rate 2020-02-02 19:00:00 Memorial Adán Respitory Rate 2020-02-02 19:00:00 Memori al [place] Height 2020-02-02 19:00:00 165.1 cm [facility] [place] Procedures Procedure Date / Time Performed [facility] O[facility] [place] Partial hysterectomy Memorial rmann Tubal ligation [facility] [place] Encounters Start End Encounter Admission Attending Care Care Encounter Source Date/Time Date/Time Type Type Clinicians Facility Department ID 2021-10-21 2021-10-21 Office [facility] [id number] 10:30:00 11:00:36 Visit Tiffanie GEIGER [id number] [facility] [id number] Carley gonsalves PROFESSIO [id number] Nd dical NAL 059 [facility] 2021-03-20 2021-03-20 Outpatient MHIE DYLANIE [id number] Memoria 13:15:00 13:15:00 11 l Adán 2020-11-20 2020-11-21 Outpatient nullFlavo MNA [id number] Memoria 19:15:00 04:59:59 r Neurology 10 l Gabriel Mccain 2020-11-13 2020-11-13 Ambulatory nullFlavo MNA [id number] Memoria 18:30:00 18:30:00 Pre-Reg r Neurology 07 l Gabriel Mccain 2020-08-21 2020-08-23 Outside nullFlavo MNA [id number] Memoria 15:18:18 04:59:59 Medical r Neurology 00 l Records Gabriel Mccain 2020-07-11 2020-07-12 Outpatient nullFlavo MNA [id number] Memoria 18:00:00 04:59:59 r Neurology 09 l Gabriel Mccain 2020-06-14 2020-06-15 Outpatient nullFlavo MNA [id number] Memoria 21:45:00 05:59:59 r Neurology 08 l Gabriel Saldanaann 2020-04-30 2020-04-30 Outpatient MHIE MHIE [id number] Memoria 09:30:00 09:30:00 05 l [place] 2020-04-10 2020-04-10 Outpatient MHIE MHIE [id number] Memoria 13:00:00 13:00:00 06 barrett Mccain 2020-03-15 2020-03-16 Outpatient nullFlavo MNA [id number] Memoria 19:00:00 05:59:59 r Neurology 04 l [facility] 2020-03-15 2020-03-15 Ambulatory nullFlavo MNA [id number] Memoria 16:15:00 16:15:00 Pre-Reg r Neurology 01 l Gabriel Saldanaann 2020-03-05 2020-03-06 Outpatient nullFlavo MNA [id number] Memoria 16:00:00 05:59:59 r Neurology 03 l Gabriel Mccain 2020-02-08 2020-02-08 Ambulatory nullFlavo MNA [id number] Memoria 15:00:00 15:00:00 Pre-Reg r Neurology 02 l Gabriel Saldanaann 2020-02-02 2020-02-03 Outpatient nullFlavo MNA [id number] Memoria 18:45:00 04:59:59 r Neurology 00 l Gabriel Mccain Results Test Description Test Time Test Comments Results Result Comments Source LIPID PANEL 2021-07-08 00:13:45 Test Item Value Reference Range Interpretation Comme nts CHOLESTEROL (test code = 2210) 217 MG/DL <200 H TRIGLYCERIDES (test code = 2232) 164 MG/DL <150 H HDL CHOLESTEROL (test code = 40 MG/DL >39 2220) CALC LDL CHOL (test code = 2237) 147 MG/DL <100 H NOTE: CALCULATED LDL IS BASED ON CRYSTAL-PRICE METHOD WHICHINCLUDES A DJUSTABLE TRIGLYCERIDE:VL DL CHOLESTEROL RATIO.THIS FACT OR VARIES BY MEASURED TRIGLY CERIDE AND NON-HDLCHOLESTE ROL CONCENTRATIONS WITH INCREASED CALCULATED LDL SEENIN HIGHER T RIGLYCERIDE OR LOWER NON-HDL S PECIMENS. FOR MOREINFORMATION , SEE CLIENT ANNOUNCEMENT AT [email or web address] [email or web address] RATIO LDL/HDL (test code = 3.68 RATIO <3.22 H 2237) COMPREHENSIVE METABOLIC [id number] 00:13:45 Test Item Value Reference Range Interpretation Comments GLUCOSE (test code = 89 MG/DL 70-99 2216) BUN (test code = 8 MG/DL 6-20 2207) CREATININE (test 1.14 MG/DL 0.60-1.30 code = 2214) eGFR (2020 CKD-EPI) 59 >60 L (test code = 40596) ML/MIN/1.73 CALC BUN/CREAT (test 7 RATIO 6-28 code = 2235) SODIUM (test code = 145 MEQ/L [phone]) POTASSIUM (test code 4.2 MEQ/L 3.5-5.4 = 2227) CHLORIDE (test code 109 MEQ/L 95-107 H = 2214) CARBON DIOXIDE (test 21 MEQ/L 19-31 code = 2206) CALCIUM (test code = 9.5 MG/DL 8.5-10.5 2208) PROTEIN, TOTAL (test 6.5 G/DL 6.1-8.3 code = 2229) ALBUMIN (test code = 4.2 G/DL 3.5-5.2 2200) CALC GLOBULIN (test 2.3 G/DL 1.9-3.7 code = 2240) CALC A/G RATIO (test 1.8 RATIO 1.0-2.6 code = 2234) BILIRUBIN, TOTAL <0.2 MG/DL See_Comment [Automated message] (test code = 2207) The syste [employer] which generated this result transmitted ref erence range: <=1.2. T he reference range was not used to int erpret this result as normal/abnormal . ALKALINE PHOSPHATASE 123 U/L 40-125 (test code = 2204) AST (test code = 13 U/L 9-40 2217) ALT (test code = 12 U/L 5-40 UNLESS OTH ERWISE 2218) INDICATED, ALL TESTING PERFORM [facility], [place]. [address] [place] [address] TIN JOSE DIRECTOR: NIC BOWDEN M.D. CLIA NUMBER [id number] CAP ACCREDITATION N O. [id number] CARBAMAZEPINE (TEGRETOL)2021-07-08 00:13:23 Test Item Value Reference Range Interpretation Comments CARBAMAZEPINE (TEGRETOL) (test code 5.3 UG/ML 4.0-12.0 = 3006) CARBAMAZEPINE (TEGRETOL)2021-04-21 01:12:09 Test Item Value Reference Range Interpretation Comments CARBAMAZEPINE 3.0 UG/ML 4.0-12.0 L UNLESS OTHERW ISE (TEGRETOL) (test code INDICA SHELBY, ALL TESTING = 3006) PERFORMED [facility] [address] POOLE DIRECTOR: NIC BOWDEN M.D. CLIA NUMBER [id number] CAP ACCREDITATION N O. [id number] TSH, THIRD [id number] 06:44:08 Test Item Value Reference Range Interpretation Comments TSH, THIRD 3.310 UIU/ML 0.400-4.100 UNLESS OTHERWI SE GENERATION (test INDICATED, ALL TESTING code = 2821) PERFORMED [facility] [address] POOLE DIRECTOR: NIC BOWDEN M.D. CLIA NUMBER [id number] CAP ACCREDITATION N O. [id number] COMPREHENSIVE METABOLIC [id number] 04:48:21 Test Item Value Reference Range Interpretation Comments GLUCOSE (test code = 88 MG/DL 70-99 2216) BUN (test code = 11 MG/DL 6-20 2207) CREATININE (test 1.02 MG/DL 0.60-1.30 EFFECTIVE code = 2214) 03/24/2021, [facility] HAS IMPLEMENTED THE NKF-ASN RECOMME NDED KD-EPI EGF R REFIT CALCULATI ON THAT DOES NOT INCLUDE A COEFFICIENT FOR RACE. FOR MORE INFORMATION, SE E ANNOUNCEMENT [email or web address]/EGFR_CALC eGFR (2020 CKD-EPI) 67 ML/MIN/1.73 >60 (test code = 92022) CALC BUN/CREAT (test 11 RATIO 6-28 code = 2235) SODIUM (test code = 145 MEQ/L [phone]) POTASSIUM (test code 4.4 MEQ/L 3.5-5.4 = 2227) CHLORIDE (test code 111 MEQ/L 95-107 H = 221) CARBON DIOXIDE (test 26 MEQ/L 19-31 code = 2206) CALCIUM (test code = 9.2 MG/DL 8.5-10.5 2208) PROTEIN, TOTAL (test 6.7 G/DL 6.1-8.3 code = 222) ALBUMIN (test code = 4.2 G/DL 3.5-5.2 2200) CALC GLOBULIN (test 2.5 G/DL 1.9-3.7 code = 224) CALC A/G RATIO (test 1.7 RATIO 1.0-2.6 code = 223) BILIRUBIN, TOTAL <0.2 MG/DL See_Comment [Automated message] (test code = 220) The syste m which generated this result transmit shelby reference range : <=1.2. The refe rence range was not u sed to interpret th is result as normal/abnormal . ALKALINE PHOSPHATASE 125 U/L 40-125 (test code = 220) AST (test code = 17 U/L 9-40 2217) ALT (test code = 16 U/L 5-40 2218) LIPID [id number] 04:48:21 Test Item Value Reference Range Interpretation Comments CHOLESTEROL (test 227 MG/DL <200 H code = 2210) TRIGLYCERIDES (test 129 MG/DL <150 code = 2232) HDL CHOLESTEROL (test 43 MG/DL >39 code = 2220) CALC LDL CHOL (test 159 MG/DL <100 H NOTE: C ALCULATED LDL code = 2237) IS BASED ON CRYSTAL-PRICE METHOD WHICHINCLUDES ADJUSTABLE TRIGLYCERIDE:VL DL CHOLESTEROL RAT IO.THIS FACTOR VARIES B Y MEASURED TRIGLY CERIDE AND NON-HDLCHOL ESTEROL CONCENTRATIONS WITH INCREASED CALCU LATED LDL SEENIN HIGH ER TRIGLYCERIDE OR LOWER NON-HDL SPECIME NS. FOR MOREINFORMATION , SEE CLIENT ANNOUNCE MENT AT [email or web address] RISK RATIO LDL/HDL 3.70 RATIO <3.22 H (test code = 2238) CARBAMAZEPINE (TEGRETOL)2021-04-01 04:48:09 Test Item Value Reference Range Interpretation Comments CARBAMAZEPINE (TEGRETOL) (test code 3.4 UG/ML 4.0-12.0 L = 3006) HEMOGLOBIN [id number] 04:32:53 Test Item Value Reference Range Interpretation Comments HEMOGLOBIN A1c (test code = 19540) 5.3 % 4.2-5.6 CBC W/AUTO DIFF WITH [id number] 03:18:54 Test Item Value Reference Range Interpretation Comments WBC (test code = 7.6 K/UL 3.5-11.0 1001) RBC (test code = 4.45 M/UL 3.80-5.40 1002) HEMOGLOBIN (test code 15.1 G/DL 11.5-15.5 = 1003) HEMATOCRIT (test code 43.5 % 34.0-45.0 = 1004) MCV (test code = 97.8 fL 80.0-99.0 1005) MCH (test code = 33.9 PG 25.0-33.0 H 1006) MCHC (test code = 34.7 G/DL 31.0-36.0 1007) RDW (test code = 12.0 % 11.5-15.0 1038) NEUTROPHILS (test 52.4 % NOTE: EFF ECTIVE code = 1008) 03/03/2021, REFERENCE INTER VALS AND FLAGGING FORRELATIVE (%) WBC DIFFERENTIAL WI LL BE ELIMINATED REDUNDANT TOABS OLUTE COUNTS.SEE [email or web address] l_[email or web address]_reporting _upda te LYMPHOCYTES (test 39.4 % code = 1010) MONOCYTES (test code 5.9 % = 1011) EOSINOPHILS (test 1.8 % code = 1012) BASOPHILS (test code 0.1 % = 1013) IMMATURE GRANYLOCYTES 0.4 % (test code = 1036) NUCLEATED RBCS (test 0.0 /100 See_Comment [Autom ated message] code = 1065) WBC'S The system [employer] generated this result transmit shelby reference range : 0.0. The refere nce range was not u sed to interpret th is result as normal/abnormal . PLATELET COUNT (test 227 K/UL 130-400 code = 1015) ABSOLUTE NEUTROPHILS 3.99 K/UL 1.50-7.50 (test code = 1066) ABSOLUTE LYMPHOCYTES 3.00 K/UL 1.00-4.00 (test code = 1067) ABSOLUTE MONOCYTES 0.45 K/UL 0.20-1.00 (test code = 1068) ABSOLUTE EOSINOPHILS 0.14 K/UL 0.00-0.50 (test code = 1040) ABSOLUTE BASOPHILS 0.01 K/UL 0.00-0.20 (test code = 1069) ABS IMMATURE 0.03 K/UL 0.00-0.10 GRANULOCYTES (test code = 1020) ABS NUCLEATED RBCS 0.00 K/UL 0.00-0.11 (test code = 07342)
[2021-11-14 16:01] LABS: Absolute Lymphocytes (CBC) 3.3 K/uL (0.7-4.9); Hematocrit 42.8 % (36.0-45.0); Lymphocytes % 41.4 % (15.3-44.8); MCV 99.1 fL (80-100); MPV 8.5 fL (7.6-11.3); RBC Red Blood Cell Count 4.31 M/uL (3.86-4.86)
--- NOTE | 2021-11-14 16:06 | EDPHYS ---
Physician Documentation [facility] Name: Liza Vuong Age: 51 yrs Sex: Female : 1970 Arrival Date: 11/14/2021 Time: 15:30 Bed 17 Private MD: ED Physician Eleuterio Okeefe Historical: - Allergies: 11/14 15:30 Latex, Natural Rubber; aa5 15:30 PENICILLINS; aa5 15:30 Zoloft; aa5 - Home Meds: 15:36 topiramate oral [Active]; aa5 15:38 Carbamazepine Oral [Active]; aa5 - PMHx: 15:30 HYPOGLYCEMIA; Seizures; Schizophrenia; COPD; aa5 - Immunization history:: Flu vaccine is not up to date. - Social history:: Smoking status: Patient reports the use of cigarette tobacco products, smokes one pack cigarettes per day. Vital Signs: 15:30 BP 112 / 63; Pulse 53; Resp 16 S; Temp 98.0(TE); Pulse Ox 95% on R/A; Weight 86.18 kg aa5 (R); Height 5 ft. 4 in. (162.56 cm) (R); 15:30 BP 112 / 63; Pulse 53; Resp 16; Temp 98; Pulse Ox 95% on R/A; Weight 86.18 kg; ha1 16:28 BP 99 / 48; Pulse 70; Resp 17 S; Pulse Ox 100% on R/A; ha1 17:07 BP 111 / 68; Pulse 70; Resp 15 S; Pulse Ox 97% on R/A; ha1 15:30 Body Mass Index 32.61 (86.18 kg, 162.56 cm) ha1 MDM: 16:05 Patient medically screened. kdr 11/14 15:32 Order name: CBC with Diff kdr 11/14 15:32 Order name: Chem 7 kdr 11/14 15:32 Order name: CT Head Brain wo Cont kdr 11/14 15:35 Order name: Carbamazepine (tegretol) kdr Administered Medications: No medications were administered Disposition Summary: 11/14/21 16:05 Discharge Ordered Location: Home kdr Problem: new kdr Symptoms: are resolved kdr Condition: Stable kdr Diagnosis - Other seizures kdr - Post traumatic seizures kdr Followup: kdr - With: Private Physician - When: 2 - 3 days - Reason: If symptoms return, Further diagnostic work-up, Recheck today's complaints, Continuance of care, Re-evaluation by your physician Discharge Instructions: - Discharge Summary Sheet kdr - Seizure, Adult, [id number] kdr Forms: - Medication Reconciliation Form kdr - Thank You Letter kdr Signatures: Dispatcher [employer] Eleuterio Echols MD MD kdr Mariia Lees RN RN aa5 Corrections: (The following items were deleted from the chart) 15:38 15:36 Home Meds: carbamazepine 200 mg Oral tab daily; aa5 aa5
--- NOTE | 2021-11-14 16:06 | ER ---
Nurse's Notes [facility] Name: Liza Vuong Age: 51 yrs Sex: Female : 1970 Arrival Date: 11/14/2021 Time: 15:30 Bed 17 Private MD: Diagnosis: Other seizures;Post traumatic seizures Presentation: 11/14 15:30 Chief complaint: EMS states: seizure lasting approximately 10 minutes, witnessed by aa5 pt's , negative fall, pt was assisted to ground by . Upon EMS scene arrival pt was A\T\O x 4. Pt has history of seizures. 15:30 Coronavirus screen: At this time, the client does not indicate any symptoms associated aa5 with coronavirus-19. Ebola Screen: No symptoms or risks identified at this time. Initial Sepsis Screen: Does the patient meet any 2 criteria? No. Patient's initial sepsis screen is negative. Does the patient have a suspected source of infection? No. Patient's initial sepsis screen is negative. Risk Assessment: Do you want to hurt yourself or someone else? Patient reports no desire to harm self or others. Onset of symptoms was November 14, 2021. 15:30 Acuity: RUDDY 3 aa5 15:30 Method Of Arrival: EMS: [facility] aa5 Historical: - Allergies: 15:30 Latex, Natural Rubber; aa5 15:30 PENICILLINS; aa5 15:30 Zoloft; aa5 - Home Meds: 15:36 topiramate oral [Active]; aa5 15:38 Carbamazepine Oral [Active]; aa5 - PMHx: 15:30 HYPOGLYCEMIA; Seizures; Schizophrenia; COPD; aa5 - Immunization history:: Flu vaccine is not up to date. - Social history:: Smoking status: Patient reports the use of cigarette tobacco products, smokes one pack cigarettes per day. Screenin:30 Abuse screen: Denies threats or abuse. ha1 15:30 Nutritional screening: No deficits noted. Tuberculosis screening: No symptoms or risk ha1 factors identified. 15:30 Fall Risk Mental Status- Oriented to own ability (0 pts). ha1 Assessment: 15:30 General: Appears comfortable, Behavior is calm, cooperative. ha1 15:30 Pain: Denies pain. Neuro: Level of Consciousness is awake, alert, obeys commands, ha1 Oriented to person, place, time, situation, Moves all extremities. Full function Reports having seizures at home for 10 minutes. was able to get to sitting position and her hold her down during the seizure. . Cardiovascular: Heart tones S1 S2 present Capillary refill < 3 seconds in bilateral. Respiratory: Airway is patent Respiratory effort is even, unlabored, Respiratory pattern is regular, symmetrical, Breath sounds are clear bilaterally. GI: No signs and/or symptoms were reported involving the gastrointestinal system. : No signs and/or symptoms were reported regarding the genitourinary system. EENT: No signs and/or symptoms were reported regarding the EENT system. Derm: Skin is intact, is healthy with good turgor, Skin is pink, warm \T\ dry. Musculoskeletal: Reports tingling on feet. 15:55 Reassessment: Dr. Okeefe at bedside . aa5 16:30 Reassessment: Patient and/or family updated on plan of care and expected duration. Pain ha1 level reassessed. Patient is alert, oriented x 3, equal unlabored respirations, skin warm/dry/pink. pt. reports having short term memory. 17:08 Reassessment: Patient and/or family updated on plan of care and expected duration. Pain ha1 level reassessed. Patient states feeling better. Vital Signs: 15:30 BP 112 / 63; Pulse 53; Resp 16 S; Temp 98.0(TE); Pulse Ox 95% on R/A; Weight 86.18 kg aa5 (R); Height 5 ft. 4 in. (162.56 cm) (R); 15:30 BP 112 / 63; Pulse 53; Resp 16; Temp 98; Pulse Ox 95% on R/A; Weight 86.18 kg; ha1 16:28 BP 99 / 48; Pulse 70; Resp 17 S; Pulse Ox 100% on R/A; ha1 17:07 BP 111 / 68; Pulse 70; Resp 15 S; Pulse Ox 97% on R/A; ha1 15:30 Body Mass Index 32.61 (86.18 kg, 162.56 cm) ha1 ED Course: 15:30 Patient arrived in ED. aa5 15:30 Arm band placed on. aa5 15:30 Placed in gown. Bed in low position. Call light in reach. Side rails up X2. Seizure ha1 precautions initiated. 15:31 Eleuterio Okeefe MD is Attending Physician. kdr 15:35 Triage completed. aa5 15:48 Coleen Baxter, RN is Primary Nurse. ha1 16:14 CT Head Brain wo Cont In Process Unspecified. EDMS 16:40 No provider procedures requiring assistance completed. ha1 17:15 IV discontinued, intact, bleeding controlled, No redness/swelling at site. Pressure ha1 dressing applied. Administered Medications: No medications were administered Medication: 16:41 VIS not applicable for this client. ha1 Outcome: 16:05 Discharge ordered by . kdr 17:15 Discharged to home ambulatory. ha1 17:15 Condition: stable 17:15 Discharge instructions given to patient, Instructed on discharge instructions, follow up and referral plans. Demonstrated understanding of instructions, follow-up care. 17:48 Patient left the ED. ha1 Signatures: Dispatcher [employer] EDPA Eleuterio Okeefe MD MD kdr Mariia Lees RN RN aa5 Coleen Baxter, RN RN ha1 Corrections: (The following items were deleted from the chart) 15:38 15:36 Home Meds: carbamazepine 200 mg Oral tab daily; aa5 aa5 16:24 15:49 General: Behavior is calm, ha1 ha1
[2021-11-14 16:16] LABS: Potassium 3.6 mmol/L (3.5-5.1)
--- NOTE | 2021-11-14 16:23 | RAD REPORT ---
EXAM DESCRIPTION: CT - Head Brain Wo Cont - 11/14/2021 4:12 pm CLINICAL HISTORY: Seizure COMPARISON: None. TECHNIQUE: Computed axial tomography of the head was obtained. IV contrast was not requested. All CT scans are performed using dose optimization technique as appropriate and may include automated exposure control or mA/KV adjustment according to patient size. FINDINGS: An intracranial bleed is not seen . The ventricles are normal in caliber. No significant hypodense areas within the brain visualized No extra-axial fluid collection is noted. Fluid within the sinuses/ mastoids is not seen. IMPRESSION: No acute intracranial abnormality is seen. If patient's symptoms persist MRI of the bra in would be recommended.
[2021-11-14 18:58] VITALS: TEMP 98
[2021-11-14 19:03] VITALS: BP 111/68; O2SAT 97
== END 2021-11-14 17:48 | disposition home or self-care (01) ==
LOC: ER 15:27
DX: R56.1 Post traumatic seizures (principal); Z88.0 Allergy status to penicillin; Z88.8 Allergy status to other drugs, medicaments and biological substances; Z91.040 Latex allergy status
CPT/HCPCS: 36415; 70450; 80048; 80156; 85025; 99283

== ENCOUNTER 2022-09-29 22:23 | Emergency (ER) | payer OTHER ==
--- OUTSIDE RECORDS SUMMARY | 2022-09-29 22:35 | XMS REPORT | Continuity of Care Document ---
:1970 Author Organization [facility] t Address [address] [place] [address] Care Team Providers Name Role Phone Geovanny Paiz Primary Care Physician JENNIFER ENGEL Attending Clinician Unavailable JENNIFER ENGEL Attending Clinician Unavailable HARSHAD POTTER Attending Clinician Unavailable NUBIA, SENDIL K.H. Attending Clinician Unavailable KENAN KOHLER Attending Clinician Unavailable KENAN KOHLER Attending Clinician Unavailable Nubia MCDONALD Sendleif K.H. Attending Clinician KARAN KAMINSKI Attending Clinician Unavailable Doctor Unassigned, [place] Attending Clinician Unavailable Pob, Adc Lab Main Attending Clinician Unavailable JUSTICE WOODSON Attending Clinician Unavailable Justice Woodson MD Attending Clinician Marisela Nix Attending Clinician RADIOLOGY Attending Clinician Unavailable Radiology Attending Clinician Unavailable Liliane Marquez DO Attending Clinician JENNIFER ENGEL Admitting Clinician Unavailable NUBIA SENDIL K.H. Admitting Clinician Unavailable MARISELA NIX Admitting Clinician Unavailable Payers Payer Name Policy Type Policy Number Effective Date Expiration Date [facility] [id number] 2018 MEDICAID 00:00:00 Problems Condition Condition Condition Status Onset Resolution Last Treating Co mments Source Name Details Category Date Date Treatment Clinician Date Recurrent Recurrent Disease Active Overview: Univers syncope syncope 08-17 Formatt[place] ity o f 00:00: g of this [place] note Medical might be Branch different from the original. 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 (disorder) (disorder) Active Problem 09/15/2022 [facility] Pulmonary Pulmonary Problem Active 2022-09-15 Memoria emphysema emphysema 06:05:09 l (disorder) (disorder) He ann Active Problem 09/15/2022 [facility] Simple Simple Problem Active 2022-09-15 [facility] obesity obesity 06:05:09 l (disorder) (disorder) He ann Active Problem 09/15/2022 [facility] Depressive Depressiv Problem Active 2022-09-15 Memoria disorder e disorder 06:05:09 l (disorder) (disorder) He ann Active Problem 09/15/2022 [facility] Dissociati Dissociat Problem Active 2022-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 Memoria ve leisa 06:05:09 l convulsion convulsion He [facility] s s (disorder) (disorder) Active Problem 09/15/2022 [facility] Dizziness Dizziness Problem Active 2022-09-15 Memoria (finding) (finding) 06:05:09 l Active [place] Problem 09/15/2022 [facility] Headache Headache Problem Active 2022-09-15 Memoria (finding) (finding) 06:05:09 l Active [place] Problem 09/15/2022 [facility] Bradycardi Bradycard Problem Active 2022-09-15 Memoria a ia 06:05:09 l (disorder) (disorder) He ann Active Problem 09/15/2022 [facility] Allergies, Adverse Reactions, Alerts Allergy Allergy Status Severity Reaction(s) Onset Inactive Treating Comm ents Source Name Type Date Date Clinician Penicill Propensi Active 2021-04 in [place] Pot ty to 0-04 in adverse 00:00: Dextrose reaction 00 - to drug Intraven ous zoloft Propensi Active (Not ty to 3-15 Checked) adverse 00:00: reaction 00 to drug LATEX DRUG Active Rash 2020-04 Univers INGREDI 0-11 ity of 00:00: [place] 00 Medical Branch Latex Propensi Active Rash 2020-04 Univers ty to 0-11 ity of adverse 00:00: [place] reaction 00 Medical s Branch Penicill Propensi Active Rash Univer s ins ty to 4-24 ity of adverse 00:00: [place] reaction 00 Medical s Branch PENICILL Drug Active Hives 0 Univers INS Class 4-24 ity of 00:00: [place] 00 Medical Branch RED DYE DRUG Active Anaphylaxis Univ ers INGREDI 4-24 ity of 00:00: [place] 00 Medical Branch SERTRALI DRUG Active Palpitations 0 Un richar NE INGREDI 4-24 ity of 00:00: [place] 00 Medical Branch Penicill Propensi Active Rash 0 Univer s ins ty to 4-24 ity of adverse 00:00: [place] reaction 00 Medical s Branch Red Dye Propensi Active Itching Univer s ty to 4-24 ity of adverse 00:00: [place] reaction 00 Medical s Branch Sertrali Propensi Active Palpitations 2020-0 Univers ne ty to 4-24 ity of adverse 00:00: [place] reaction 00 Medical s Branch penicill penicill Active Memori a in in l [place] Zoloft Zoloft Active Memoria l Adán [facility] Social [facility] Social Habit Start Date Stop Date Quantity Comments Source History of tobacco Cigarette Smoker University of use [facility] Exposure to 2022-08-29 2022-09-08 Not sure University SARS-CoV-2 (event) 00:00:00 07:33:00 [facility] [place] [facility] Cigarettes smoked 2021-10-21 2021-10-21 Univers ity of current (pack per 00:00:00 00:00:00 [facility] ) - Reported Branch Tobacco use and 2021-10-21 2021-10-21 Smokeless Universit y of exposure 00:00:00 00:00:00 tobacco non-user [facility] Sex [birth year] Universit y of 00:00:00 00:00:00 [facility] [place] [facility] Smoking Status Start Date Stop Date Source Tobacco smoking status 2022 17:48:36 Memor lyle Mccain Medications Ordered Filled Start Stop Current Ordering Indication Dosage Frequency Signature Comments Components Source Medication Medication Date Date Medication? Clinician (SIG) Name Name ezetimibe Yes [id number] 10mg Take 1 U nivers 10 mg 6-14 tablet by ity of tablet 00:00: mouth in [place] 00 the Medical morning. [employer] ezetimibe Yes [id number] 10mg Take 1 U nivers 10 mg 6-14 tablet by ity of tablet 00:00: mouth in [place] the Medical morning. [employer] ezetimibe 0 Yes [id number] 10mg Take 1 U nivers 10 mg 6-09 tablet by ity of tablet 00:00: mouth in [place] 00 the morning. [employer] ezetimibe 2022- No [id number] 10mg Take 1 Univers 10 mg 6-09 06-14 tablet by ity of tablet 00:00: 00:00 mouth in [place] 00 :00 the Medical morning. [employer] lidocaine 2022- No ONCE INTRA U nivers 1% (PF) 09-08 PROCEDURE, ity o f (XYLOCAINE) 13:11: 13:21 [place] injection 09 :37 on [facility] 09/08/22 at [employer] 0811, Until 09/08/22 at 0821, Routine, CV Intraproce dure vancomycin 2022- No CONTINUOUS Univers 1000 mg in 09-08 PRN, ity of NS 200 mL 13:04: 13:04 Starting Pedro Luis as RTU IV 04 :04 on [facility] Piggyback 09/08/22 at [facility] 0804, Until Wed09/08/22 at 0804, Administer over 60 Minutes, CV Intraproce dure carBAMazepi Yes 100mg Take 1 Uni vers ne 100 mg 5-30 capsule by ity of 12 hr 09:52: mouth in [place] capsule 09 the Medical morning Branch and 1 capsule in the evening. topiramate 2022-0 Yes 200mg Take 1 Univ ers 200 mg 5-30 tablet by ity of tablet 09:52: mouth in [place] 09 the Medical morning Branch and 1 tablet in the evening. MULTIVITAMI 2022-0 Yes 1{tbl} Take 1 Un richar N ORAL 5-30 tablet by ity of 09:52: mouth [place] 09 daily. Medical Branch valACYclovi 0 Yes 1g Take 1 Univ ers r 1 gram 5-30 tablet by ity of tablet 09:52: mouth in [place] 09 the Medical morning. Branch albuterol 0 Yes [id number] Inhale. U nivers sulfate 5-30 ity of (PROAIR HFA 09:52: [place] INHALE) 09 Medical Branch tiotropium 0 Yes [id number] Inhale. Univers bromide 5-30 ity of (SPIRIVA 09:52: [place] RESPIMAT 09 Medical INHALE) Branch carBAMazepi 0 Yes 100mg Take 1 Uni vers ne 100 mg 5-30 capsule by ity of 12 hr 09:52: mouth in [facility] 09 the Medical morning Branch and 1 capsule in the evening. topiramate 0 Yes 200mg Take 1 Univ ers 200 mg 5-30 tablet by ity of tablet 09:52: mouth in [place] 09 the Medical morning Branch and 1 tablet in the evening. MULTIVITAMI 0 Yes 1{tbl} Take 1 Un richar N ORAL 5-30 tablet by ity of 09:52: mouth [place] 09 daily. Medical Branch valACYclovi 0 Yes 1g Take 1 Univ ers r 1 gram 5-30 tablet by ity of tablet 09:52: mouth in [place] 09 the Medical morning. Branch albuterol 2022-0 Yes [id number] Inhale. U nivers sulfate 5-30 ity of (PROAIR HFA 09:52: [place] INHALE) 09 Medical Branch tiotropium 2022-0 Yes [id number] Inhale. Univers bromide 5-30 ity of (SPIRIVA 09:52: [place] RESPIMAT 09 Medical INHALE) Branch carBAMazepi 2022-0 Yes 100mg Take 1 Uni vers ne 100 mg 5-30 capsule by ity of 12 hr 09:52: mouth in [place] capsule 09 the Medical morning Branch and 1 capsule in the evening. topiramate 2022-0 Yes 200mg Take 1 Univ ers 200 mg 5-30 tablet by ity of tablet 09:52: mouth in [place] 09 the Medical morning Branch and 1 tablet in the evening. MULTIVITAMI 2022-0 Yes 1{tbl} Take 1 Un richar N ORAL 5-30 tablet by ity of 09:52: mouth [place] daily. Medical Branch valACYclovi 0 Yes 1g Take 1 Univ ers r 1 gram 5-30 tablet by ity of tablet 09:52: mouth in [place] 09 the Medical morning. Branch albuterol 0 Yes [id number] Inhale. U nivers sulfate 5-30 ity of (PROAIR HFA 09:52: [place] INHALE) 09 Medical Branch tiotropium 0 Yes [id number] Inhale. Univers bromide 5-30 ity of (SPIRIVA 09:52: [place] RESPIMAT 09 Medical INHALE) Branch carBAMazepi 0 Yes 100mg Take 1 Uni vers ne 100 mg 5-30 capsule by ity of 12 hr 09:52: mouth in [facility] 09 the Medical morning Branch and 1 capsule in the evening. topiramate 0 Yes 200mg Take 1 Univ ers 200 mg 5-30 tablet by ity of tablet 09:52: mouth in [place] 09 the Medical morning Branch and 1 tablet in the evening. MULTIVITAMI 0 Yes 1{tbl} Take 1 Un richar N ORAL 5-30 tablet by ity of 09:52: mouth [place] daily. Medical Branch valACYclovi 0 Yes 1g Take 1 Univ ers r 1 gram 5-30 tablet by ity of tablet 09:52: mouth in [place] 09 the Medical morning. Branch albuterol 2022-0 Yes [id number] Inhale. U nivers sulfate 5-30 ity of (PROAIR HFA 09:52: [place] INHALE) 09 Medical Branch tiotropium 2022-0 Yes [id number] Inhale. Univers bromide 5-30 ity of (SPIRIVA 09:52: [place] RESPIMAT 09 Medical INHALE) Branch carBAMazepi 2022-0 Yes 100mg Take 1 Uni vers ne 100 mg 5-30 capsule by ity of 12 hr 09:52: mouth in [place] capsule 09 the Medical morning Branch and 1 capsule in the evening. topiramate 0 Yes 200mg Take 1 Univ ers 200 mg 5-30 tablet by ity of tablet 09:52: mouth in [place] 09 the Medical morning Branch and 1 tablet in the evening. MULTIVITAMI 2022-0 Yes 1{tbl} Take 1 Un richar N ORAL 5-30 tablet by ity of 09:52: mouth [place] 09 daily. Medical Branch valACYclovi 0 Yes 1g Take 1 Univ ers r 1 gram 5-30 tablet by ity of tablet 09:52: mouth in [place] 09 the Medical morning. Branch albuterol 0 Yes [id number] Inhale. U nivers sulfate 5-30 ity of (PROAIR HFA 09:52: [place] INHALE) 09 Medical Branch tiotropium 0 Yes [id number] Inhale. Univers bromide 5-30 ity of (SPIRIVA 09:52: [place] RESPIMAT 09 Medical INHALE) Branch carBAMazepi 0 Yes 100mg Take 1 Uni vers ne 100 mg 5-30 capsule by ity of 12 hr 09:52: mouth in [place] capsule 09 the Medical morning Branch and 1 capsule in the evening. topiramate 0 Yes 200mg Take 1 Univ ers 200 mg 5-30 tablet by ity of tablet 09:52: mouth in [place] 09 the Medical morning Branch and 1 tablet in the evening. MULTIVITAMI 2022-0 Yes 1{tbl} Take 1 Un richar N ORAL 5-30 tablet by ity of 09:52: mouth [place] daily. Medical Branch valACYclovi 0 Yes 1g Take 1 Univ ers r 1 gram 5-30 tablet by ity of tablet 09:52: mouth in [place] 09 the Medical morning. Branch albuterol 2022-0 Yes [id number] Inhale. U nivers sulfate 5-30 ity of (PROAIR HFA 09:52: [place] INHALE) 09 Medical Branch tiotropium 2022-0 Yes [id number] Inhale. Univers bromide 5-30 ity of (SPIRIVA 09:52: [place] RESPIMAT 09 Medical INHALE) Branch carBAMazepi 2022-0 Yes 100mg Take 1 Uni vers ne 100 mg 5-30 capsule by ity of 12 hr 09:52: mouth in [place] capsule 09 the Medical morning Branch and 1 capsule in the evening. topiramate 2022-0 Yes 200mg Take 1 Univ ers 200 mg 5-30 tablet by ity of tablet 09:52: mouth in [place] 09 the Medical morning Branch and 1 tablet in the evening. MULTIVITAMI 2022-0 Yes 1{tbl} Take 1 Un richar N ORAL 5-30 tablet by ity of 09:52: mouth [place] 09 daily. Medical Branch valACYclovi 2022-0 Yes 1g Take 1 Univ ers r 1 gram 5-30 tablet by ity of tablet 09:52: mouth in [place] 09 the Medical morning. Branch albuterol 2022-0 Yes [id number] Inhale. U nivers sulfate 5-30 ity of (PROAIR HFA 09:52: [place] INHALE) 09 Medical Branch tiotropium 2022-0 Yes [id number] Inhale. Univers bromide 5-30 ity of (SPIRIVA 09:52: [place] RESPIMAT 09 Medical INHALE) Branch carBAMazepi 2022-0 Yes 100mg Take 1 Uni vers ne 100 mg 5-30 capsule by ity of 12 hr 09:52: mouth in [place] capsule 09 the Medical morning Branch and 1 capsule in the evening. topiramate 2022-0 Yes 200mg Take 1 Univ ers 200 mg 5-30 tablet by ity of tablet 09:52: mouth in [place] 09 the Medical morning Branch and 1 tablet in the evening. MULTIVITAMI 2022-0 Yes 1{tbl} Take 1 Un richar N ORAL 5-30 tablet by ity of 09:52: mouth [place] daily. Medical Branch valACYclovi 2022-0 Yes 1g Take 1 Univ ers r 1 gram 5-30 tablet by ity of tablet 09:52: mouth in [place] 09 the Medical morning. Branch albuterol 2022-0 Yes [id number] Inhale. U nivers sulfate 5-30 ity of (PROAIR HFA 09:52: [place] INHALE) 09 Medical Branch tiotropium 2022-0 Yes [id number] Inhale. Univers bromide 5-30 ity of (SPIRIVA 09:52: [place] RESPIMAT 09 Medical INHALE) Branch carBAMazepi 2022-0 Yes 100mg Take 1 Uni vers ne 100 mg 5-30 capsule by ity of 12 hr 09:52: mouth in [place] capsule 09 the Medical morning Branch and 1 capsule in the evening. topiramate Yes 200mg Take 1 Univ ers 200 mg 5-30 tablet by ity of tablet 09:52: mouth in [place] 09 the Medical morning Branch and 1 tablet in the evening. MULTIVITAMI Yes 1{tbl} Take 1 Un richar N ORAL 5-30 tablet by ity of 09:52: mouth [place] 09 daily. Medical Branch valACYclovi Yes 1g Take 1 Univ ers r 1 gram 5-30 tablet by ity of tablet 09:52: mouth in [place] 09 the Medical morning. Branch albuterol Yes [id number] Inhale. U nivers sulfate 5-30 ity of (PROAIR HFA 09:52: [place] INHALE) 09 Medical Branch tiotropium Yes [id number] Inhale. Univers bromide 5-30 ity of (SPIRIVA 09:52: [place] RESPIMAT 09 Medical INHALE) Branch atorvastati Yes [id number] 40mg Take 1 Univers n 40 mg 5-18 tablet by ity of tablet 00:00: mouth at [place] 00 bedtime. Medical Branch atorvastati Yes [id number] 40mg Take 1 Univers n 40 mg 5-18 tablet by ity of tablet 00:00: mouth at [place] 00 bedtime. Medical Branch atorvastati Yes [id number] 40mg Take 1 Univers n 40 mg 5-18 tablet by ity of tablet 00:00: mouth at [place] 00 bedtime. Medical Branch atorvastati Yes [id number] 40mg Take 1 Univers n 40 mg 5-18 tablet by ity of tablet 00:00: mouth at [place] 00 bedtime. Medical Branch atorvastati Yes [id number] 40mg Take 1 Univers n 40 mg 5-18 tablet by ity of tablet 00:00: mouth at [place] 00 bedtime. Medical Branch atorvastati 2022- No [id number] 40mg Take 1 Univers n 40 mg 5-18 09-18 tablet by ity of tablet 00:00: 00:00 mouth at [place] 00 :00 bedtime. Medical Branch iopamidol No [id number] 70mL 70 mL, U nivers (ISOVUE 06-17 Intravenou ity o f 370-500 mL) 21:30: 20:35 s, ONCE, 1 [place] injection 00 :00 dose, On Medica l 70 mL 06/17/22 Branch at 1530, Routine nitroglycer 2022- No [id number] .4mg 0.4 mg, Univers in 06-17 Sublingual ity of (NITROSTAT) 16:19: 16:20 , ONCE, 1 [place] sublingual 00 :00 dose, On Medic al tablet 0.4 Wed06/17/22 Bra nch mg at 1030, Routine carBAMazepi 3-0 Yes 100mg Take 100 U nivers ne 100 mg 2-15 mg by ity of 12 hr 15:55: mouth 2 [place] capsule 36 (two) Medical times Branch daily. carBAMazepi 2023-0 Yes 100mg Take 100 U nivers ne 100 mg 2-15 mg by ity of 12 hr 15:55: mouth 2 [place] capsule 36 (two) Medical times Branch daily. carBAMazepi 2023-0 Yes 100mg Take 100 U nivers ne 100 mg 2-15 mg by ity of 12 hr 15:55: mouth 2 [place] capsule 36 (two) Medical times Branch daily. carBAMazepi 2023-0 Yes 100mg Take 100 U nivers ne 100 mg 2-15 mg by ity of 12 hr 15:55: mouth 2 [place] capsule 36 (two) Medical times Branch daily. carBAMazepi 2023-0 Yes 100mg Take 100 U nivers ne 100 mg 2-15 mg by ity of 12 hr 15:55: mouth 2 [place] capsule 36 (two) Medical times Branch daily. carBAMazepi 2023-0 Yes 100mg Take 100 U nivers ne 100 mg 2-15 mg by ity of 12 hr 15:55: mouth 2 [place] capsule 36 (two) Medical times Branch daily. carBAMazepi 2023-0 Yes 100mg Take 100 U nivers ne 100 mg 2-15 mg by ity of 12 hr 15:55: mouth 2 [place] capsule 36 (two) Medical times Branch daily. carBAMazepi 2023-0 Yes 100mg Take 100 U nivers ne 100 mg 2-15 mg by ity of 12 hr 15:55: mouth 2 [place] capsule 36 (two) Medical times Branch daily. carBAMazepi 0 Yes 100mg Take 100 U nivers ne 100 mg 2-15 mg by ity of 12 hr 15:55: mouth 2 [place] capsule 36 (two) Medical times Branch daily. carBAMazepi 0 Yes 100mg Take 100 U nivers ne 100 mg 2-15 mg by ity of 12 hr 15:55: mouth 2 [place] capsule 36 (two) Medical times Branch daily. carBAMazepi 0 Yes 100mg Take 100 U nivers ne 100 mg 2-15 mg by ity of 12 hr 15:55: mouth 2 [place] capsule 36 (two) Medical times Branch daily. albuterol Yes [id number] Inhale. U nivers sulfate 2-15 ity of (PROAIR HFA 15:36: [place] INHALE) 19 Medical Branch tiotropium Yes [id number] Inhale. Univers bromide 2-15 ity of (SPIRIVA 15:36: [place] RESPIMAT 19 Medical INHALE) Branch albuterol Yes [id number] Inhale. U nivers sulfate 2-15 ity of (PROAIR HFA 15:36: [place] INHALE) 19 Medical Branch tiotropium Yes [id number] Inhale. Univers bromide 2-15 ity of (SPIRIVA 15:36: [place] RESPIMAT 19 Medical INHALE) Branch albuterol 0 Yes [id number] Inhale. U nivers sulfate 2-15 ity of (PROAIR HFA 15:36: [place] INHALE) 19 Medical Branch tiotropium Yes [id number] Inhale. Univers bromide 2-15 ity of (SPIRIVA 15:36: [place] RESPIMAT 19 Medical INHALE) Branch albuterol Yes [id number] Inhale. U nivers sulfate 2-15 ity of (PROAIR HFA 15:36: [place] INHALE) 19 Medical Branch tiotropium 0 Yes [id number] Inhale. Univers bromide 2-15 ity of (SPIRIVA 15:36: [place] RESPIMAT 19 Medical INHALE) Branch albuterol 0 Yes [id number] Inhale. U nivers sulfate 2-15 ity of (PROAIR HFA 15:36: [place] INHALE) 19 Medical Branch tiotropium 0 Yes [id number] Inhale. Univers bromide 2-15 ity of (SPIRIVA 15:36: [place] RESPIMAT 19 Medical INHALE) Branch albuterol 0 Yes [id number] Inhale. U nivers sulfate 2-15 ity of (PROAIR HFA 15:36: [place] INHALE) 19 Medical Branch tiotropium 0 Yes [id number] Inhale. Univers bromide 2-15 ity of (SPIRIVA 15:36: [place] RESPIMAT 19 Medical INHALE) Branch albuterol 0 Yes [id number] Inhale. U nivers sulfate 2-15 ity of (PROAIR HFA 15:36: [place] INHALE) 19 Medical Branch tiotropium 0 Yes [id number] Inhale. Univers bromide 2-15 ity of (SPIRIVA 15:36: [place] RESPIMAT 19 Medical INHALE) Branch albuterol 0 Yes [id number] Inhale. U nivers sulfate 2-15 ity of (PROAIR HFA 15:36: [place] INHALE) 19 Medical Branch tiotropium 0 Yes [id number] Inhale. Univers bromide 2-15 ity of (SPIRIVA 15:36: [place] RESPIMAT 19 Medical INHALE) Branch albuterol 0 Yes [id number] Inhale. U nivers sulfate 2-15 ity of (PROAIR HFA 15:36: [place] INHALE) 19 Medical Branch tiotropium 0 Yes [id number] Inhale. Univers bromide 2-15 ity of (SPIRIVA 15:36: [place] RESPIMAT 19 Medical INHALE) Branch albuterol 0 Yes [id number] Inhale. U nivers sulfate 2-15 ity of (PROAIR HFA 15:36: [place] INHALE) 19 Medical Branch tiotropium 0 Yes [id number] Inhale. Univers bromide 2-15 ity of (SPIRIVA 15:36: [place] RESPIMAT 19 Medical INHALE) Branch albuterol 0 Yes [id number] Inhale. U nivers sulfate 2-15 ity of (PROAIR HFA 15:36: [place] INHALE) 19 Medical Branch tiotropium Yes [id number] Inhale. Univers bromide 2-15 ity of (SPIRIVA 15:36: [place] RESPIMAT 19 Medical INHALE) Branch topiramate Yes 200mg Take 200 Un richar 200 mg 2-15 mg by ity of tablet 15:34: mouth 2 [place] [address] (two) Medical times Branch daily. MULTIVITAMI Yes 1{tbl} Take 1 Un richar N ORAL 2-15 tablet by ity of 15:34: mouth [place] daily. Medical Branch valACYclovi Yes 1g Take 1 g Un richar r 1 gram 2-15 by mouth ity of tablet 15:34: daily. [place] [address] Medical Branch topiramate Yes 200mg Take 200 Un richar 200 mg 2-15 mg by ity of tablet 15:34: mouth 2 [place] [address] (two) Medical times [employer] daily. MULTIVITAMI Yes 1{tbl} Take 1 Un richar N ORAL 2-15 tablet by ity of 15:34: mouth [place] [address] daily. Medical Branch valACYclovi Yes 1g Take 1 g Un richar r 1 gram 2-15 by mouth ity of tablet 15:34: daily. [place] [address] Medical Branch topiramate Yes 200mg Take 200 Un richar 200 mg 2-15 mg by ity of tablet 15:34: mouth 2 [place] [address] (two) Medical times [employer] daily. MULTIVITAMI Yes 1{tbl} Take 1 Un richar N ORAL 2-15 tablet by ity of 15:34: mouth [place] [address] daily. Medical Branch valACYclovi Yes 1g Take 1 g Un richar r 1 gram 2-15 by mouth ity of tablet 15:34: daily. [place] [address] Medical Branch topiramate Yes 200mg Take 200 Un richar 200 mg 2-15 mg by ity of tablet 15:34: mouth 2 [place] [address] (two) Medical times Branch daily. MULTIVITAMI Yes 1{tbl} Take 1 Un richar N ORAL 2-15 tablet by ity of 15:34: mouth [place] [address] daily. Medical Branch valACYclovi Yes 1g Take 1 g Un richar r 1 gram 2-15 by mouth ity of tablet 15:34: daily. [address] Branch topiramate 0 Yes 200mg Take 200 Un richar 200 mg 2-15 mg by ity of tablet 15:34: mouth 2 [place] [address] (two) Medical times [employer] daily. MULTIVITAMI 0 Yes 1{tbl} Take 1 Un richar N ORAL 2-15 tablet by ity of 15:34: mouth [place] [address] daily. Medical Branch valACYclovi 0 Yes 1g Take 1 g Un richar r 1 gram 2-15 by mouth ity of tablet 15:34: daily. [address] Branch topiramate 0 Yes 200mg Take 200 Un richar 200 mg 2-15 mg by ity of tablet 15:34: mouth 2 [place] [address] (two) Medical times [employer] daily. MULTIVITAMI 0 Yes 1{tbl} Take 1 Un richar N ORAL 2-15 tablet by ity of 15:34: mouth [place] [address] daily. Medical Branch valACYclovi 0 Yes 1g Take 1 g Un richar r 1 gram 2-15 by mouth ity of tablet 15:34: daily. [address] topiramate 0 Yes 200mg Take 200 Un richar 200 mg 2-15 mg by ity of tablet 15:34: mouth 2 [place] [address] (two) Medical times [employer] daily. MULTIVITAMI 0 Yes 1{tbl} Take 1 Un richar N ORAL 2-15 tablet by ity of 15:34: mouth [place] [address] daily. Medical Branch valACYclovi 0 Yes 1g Take 1 g Un richar r 1 gram 2-15 by mouth ity of tablet 15:34: daily. [address] Branch topiramate 0 Yes 200mg Take 200 Un richar 200 mg 2-15 mg by ity of tablet 15:34: mouth 2 [place] [address] (two) Medical times [employer] daily. MULTIVITAMI 2022-0 Yes 1{tbl} Take 1 Un richar N ORAL 2-15 tablet by ity of 15:34: mouth [place] [address] daily. Medical Branch valACYclovi 2022-0 Yes 1g Take 1 g Un richar r 1 gram 2-15 by mouth ity of tablet 15:34: daily. [address] Branch topiramate 0 Yes 200mg Take 200 Un rihcar 200 mg 2-15 mg by ity of tablet 15:34: mouth 2 [place] [address] (two) Medical times Branch daily. MULTIVITAMI Yes 1{tbl} Take 1 Un richar N ORAL 2-15 tablet by ity of 15:34: mouth [place] [address] daily. Medical Branch valACYclovi Yes 1g Take 1 g Un richar r 1 gram 2-15 by mouth ity of tablet 15:34: daily. [place] [address] Medical Branch topiramate Yes 200mg Take 200 Un richar 200 mg 2-15 mg by ity of tablet 15:34: mouth 2 [place] [address] (two) Medical times Branch daily. MULTIVITAMI Yes 1{tbl} Take 1 Un richar N ORAL 2-15 tablet by ity of 15:34: mouth [place] [address] daily. Medical Branch valACYclovi Yes 1g Take 1 g Un richar r 1 gram 2-15 by mouth ity of tablet 15:34: daily. [place] [address] Medical Branch topiramate Yes 200mg Take 200 Un richar 200 mg 2-15 mg by ity of tablet 15:34: mouth 2 [place] [address] (two) Medical times Branch daily. MULTIVITAMI Yes 1{tbl} Take 1 Un richar N ORAL 2-15 tablet by ity of 15:34: mouth [place] [address] daily. [facility] valACYclovi Yes 1g Take 1 g Un richar r 1 gram 2-15 by mouth ity of tablet 15:34: daily. [address] Branch baclofen 2021-04 Yes 10 mg = 1 M emoria mg oral 2-15 tab, PO, l tablet 18:10: TID, 0 [place] 00 Refill(s) baclofen 2021-04 Yes 10 mg = 1 M emoria mg oral 2-15 tab, PO, l tablet 18:10: TID, 0 [place] 00 Refill(s) baclofen 2021-04 Yes 10 mg = 1 M emoria mg oral 2-15 tab, PO, l tablet 18:10: TID, 0 [place] 00 Refill(s) baclofen 2021-04 Yes 10 mg = 1 M emoria mg oral 2-15 tab, PO, l tablet 18:10: TID, 0 [place] 00 Refill(s) baclofen 2021-04 Yes 10 mg = 1 M em[facility] mg oral 2-15 tab, PO, l tablet 18:10: TID, 0 [place] 00 Refill(s) baclofen 2021-04 Yes 10 mg = 1 M emoria mg oral 2-15 tab, PO, l tablet 18:10: TID, 0 [place] 00 Refill(s) baclofen 2021-04 Yes 10 mg = 1 M emoria mg oral 2-15 tab, PO, l tablet 18:10: TID, 0 [place] 00 Refill(s) baclofen 2021-04 Yes 10 mg = 1 M emoria mg oral 2-15 tab, PO, l tablet 18:10: TID, 0 [place] 00 Refill(s) baclofen 2021-04 Yes 10 mg = 1 M emoria mg oral 2-15 tab, PO, l tablet 18:10: TID, 0 [place] 00 Refill(s) baclofen 2021-04 Yes 10 mg = 1 M emoria mg oral 2-15 tab, PO, l tablet 18:10: TID, 0 [place] 00 Refill(s) baclofen 2021-04 Yes 10 mg = 1 M em[facility] mg oral 2-15 tab, PO, l tablet 18:10: TID, 0 [place] 00 Refill(s) topiramate 2021-04 Yes See [facility] 200 mg oral 2-15 Instructio l tablet 18:09: ns, TAKE [place] 00 ONE (1) TABLET(S) BY MOUTH TWICE A DAY., # 60 ea, 3 Refill(s), Pharmacy: [facility], 162.56, cm, 03/26/22 12:04:00 SPECIAL NEEDS NANNY, Height, 86.818, kg, 03/26/22 12:04:00 SPECIAL NEEDS NANNY, Weight topiramate 2021-04 Yes See [facility] 200 mg oral 2-15 Instructio l tablet 18:09: ns, TAKE [place] 00 ONE (1) TABLET(S) BY MOUTH TWICE A DAY., # 60 ea, 3 Refill(s), Pharmacy: [facility], 162.56, cm, 03/26/22 12:04:00 SPECIAL NEEDS NANNY, Height, 86.818, kg, 03/26/22 12:04:00 SPECIAL NEEDS NANNY, Weight topiramate 2021-04 Yes See [facility] 200 mg oral 2-15 Instructio l tablet 18:09: ns, TAKE [place] 00 ONE (1) TABLET(S) BY MOUTH TWICE A DAY., # 60 ea, 3 Refill(s), Pharmacy: [facility], 162.56, cm, 03/26/22 12:04:00 SPECIAL NEEDS NANNY, Height, 86.818, kg, 03/26/22 12:04:00 SPECIAL NEEDS NANNY, Weight topiramate 2021-04 Yes See [facility] 200 mg oral 2-15 Instructio l tablet 18:09: ns, TAKE [place] 00 ONE (1) TABLET(S) BY MOUTH TWICE A DAY., # 60 ea, 3 Refill(s), Pharmacy: [facility], 162.56, cm, 03/26/22 12:04:00 SPECIAL NEEDS NANNY, Height, 86.818, kg, 03/26/22 12:04:00 SPECIAL NEEDS NANNY, Weight topiramate 2021-04 Yes See [facility] 200 mg oral 2-15 Instructio l tablet 18:09: ns, TAKE [place] 00 ONE (1) TABLET(S) BY MOUTH TWICE A DAY., # 60 ea, 3 Refill(s), Pharmacy: [facility], 162.56, cm, 03/26/22 12:04:00 SPECIAL NEEDS NANNY, Height, 86.818, kg, 03/26/22 12:04:00 SPECIAL NEEDS NANNY, Weight topiramate 2021-04 Yes See [facility] 200 mg oral 2-15 Instructio l tablet 18:09: ns, TAKE [place] 00 ONE (1) TABLET(S) BY MOUTH TWICE A DAY., # 60 ea, 3 Refill(s), Pharmacy: [facility], 162.56, cm, 03/26/22 12:04:00 SPECIAL NEEDS NANNY, Height, 86.818, kg, 03/26/22 12:04:00 SPECIAL NEEDS NANNY, Weight topiramate 2021-04 Yes See [facility] 200 mg oral 2-15 Instructio l tablet 18:09: ns, TAKE [place] 00 ONE (1) TABLET(S) BY MOUTH TWICE A DAY., # 60 ea, 3 Refill(s), Pharmacy: [facility], 162.56, cm, 03/26/22 12:04:00 SPECIAL NEEDS NANNY, Height, 86.818, kg, 03/26/22 12:04:00 SPECIAL NEEDS NANNY, Weight topiramate 2021-04 Yes See [facility] 200 mg oral 2-15 Instructio l tablet 18:09: ns, TAKE [place] 00 ONE (1) TABLET(S) BY MOUTH TWICE A DAY., # 60 ea, 3 Refill(s), Pharmacy: [facility], 162.56, cm, 03/26/22 12:04:00 SPECIAL NEEDS NANNY, Height, 86.818, kg, 03/26/22 12:04:00 SPECIAL NEEDS NANNY, Weight topiramate 2021-04 Yes See [facility] 200 mg oral 2-15 Instructio l tablet 18:09: ns, TAKE [place] 00 ONE (1) TABLET(S) BY MOUTH TWICE A DAY., # 60 ea, 3 Refill(s), Pharmacy: [facility], 162.56, cm, 03/26/22 12:04:00 SPECIAL NEEDS NANNY, Height, 86.818, kg, 03/26/22 12:04:00 SPECIAL NEEDS NANNY, Weight topiramate 2021-04 Yes See [facility] 200 mg oral 2-15 Instructio l tablet 18:09: ns, TAKE [place] 00 ONE (1) TABLET(S) BY MOUTH TWICE A DAY., # 60 ea, 3 Refill(s), Pharmacy: [facility], 162.56, cm, 03/26/22 12:04:00 SPECIAL NEEDS NANNY, Height, 86.818, kg, 03/26/22 12:04:00 SPECIAL NEEDS NANNY, Weight topiramate 2021-04 Yes See [facility] 200 mg oral 2-15 Instructio l tablet 18:09: ns, TAKE [place] 00 ONE (1) TABLET(S) BY MOUTH TWICE A DAY., # 60 ea, 3 Refill(s), Pharmacy: [facility], 162.56, cm, 03/26/22 12:04:00 SPECIAL NEEDS NANNY, Height, 86.818, kg, 03/26/22 12:04:00 SPECIAL NEEDS NANNY, Weight FLOVENT HFA 2021-04 No 110MCG/A 1-14 INH 00:00: 00 VRAYLAR 2021-04 No 4.5MG CAP 0-01 00:00: 00 BUSPIRONE 2021-1 No 10MG TAB 0-01 00:00: 00 VRAYLAR 2021-1 No 4.5MG CAP 0-01 00:00: 00 BUSPIRONE 2021-1 No 10MG TAB 0-01 00:00: 00 TAKE 2021-0 No ONE-HALF 12-15 (04/13) 00:00: TABLET(S) 00 BY MOUTH TWICE A DAY. TAKE 2021-0 No ONE-HALF 12-15 (04/13) 00:00: TABLET(S) 00 BY MOUTH TWICE A DAY. VRAYLAR 2021-0 No 45 4.5MG CAP 8- 00:00: 00 VRAYLAR 2021-0 No 45 4.5MG CAP 8 00:00: 00 VRAYLAR 2021-0 No 45 4.5MG CAP 8 00:00: 00 Ativan 0.5 Yes See Memoria mg oral 8-16 Instructio l tablet 14:24: ns, Take 1 [place] nn 00 tab po 1 hour prior to MRI, may repeat q 15 min. if still anxious, # 5 tab, 0 Refill(s), Pharmacy: [facility] [place], 162.56, cm, 11/20/21 11:15:00 CDT, Height, 87.045, kg, 11/20/21 11:15:00 CDT, Weight Ativan 0.5 0 Yes See Memoria mg oral 8-16 Instructio l tablet 14:24: ns, Take 1 [place] nn 00 tab po 1 hour prior to MRI, may repeat q 15 min. if still anxious, # 5 tab, 0 Refill(s), Pharmacy: [facility] [place], 162.56, cm, 11/20/21 11:15:00 CDT, Height, 87.045, kg, 11/20/21 11:15:00 CDT, Weight Ativan 0.5 0 Yes See [facility] mg oral 8-16 Instructio l tablet 14:24: ns, Take 1 [place] nn 00 tab po 1 hour prior to MRI, may repeat q 15 min. if still anxious, # 5 tab, 0 Refill(s), Pharmacy: [facility], 162.56, cm, 11/20/21 11:15:00 CDT, Height, 87.045, kg, 11/20/21 11:15:00 CDT, Weight Ativan 0.5 2021-0 Yes See [facility] mg oral 8-16 Instructio l tablet 14:24: ns, Take 1 [place] nn 00 tab po 1 hour prior to MRI, may repeat q 15 min. if still anxious, # 5 tab, 0 Refill(s), Pharmacy: [facility], 162.56, cm, 11/20/21 11:15:00 CDT, Height, 87.045, kg, 11/20/21 11:15:00 CDT, Weight Ativan 0.5 2021-0 Yes See [facility] mg oral 8-16 Instructio l tablet 14:24: ns, Take 1 [place] nn 00 tab po 1 hour prior to MRI, may repeat q 15 min. if still anxious, # 5 tab, 0 Refill(s), Pharmacy: [facility], 162.56, cm, 11/20/21 11:15:00 CDT, Height, 87.045, kg, 11/20/21 11:15:00 CDT, Weight Ativan 0.5 2021-0 Yes See [facility] mg oral 8-16 Instructio l tablet 14:24: ns, Take 1 [place] nn 00 tab po 1 hour prior to MRI, may repeat q 15 min. if still anxious, # 5 tab, 0 Refill(s), Pharmacy: [facility], 162.56, cm, 11/20/21 11:15:00 CDT, Height, 87.045, kg, 11/20/21 11:15:00 CDT, Weight Ativan 0.5 2021-0 Yes See [facility] mg oral 8-16 Instructio l tablet 14:24: ns, Take 1 [place] nn 00 tab po 1 hour prior to MRI, may repeat q 15 min. if still anxious, # 5 tab, 0 Refill(s), Pharmacy: [facility], 162.56, cm, 11/20/21 11:15:00 CDT, Height, 87.045, kg, 11/20/21 11:15:00 CDT, Weight Ativan 0.5 2022-0 Yes See [facility] mg oral 8-16 Instructio l tablet 14:24: ns, Take 1 [place] nn 00 tab po 1 hour prior to MRI, may repeat q 15 min. if still anxious, # 5 tab, 0 Refill(s), Pharmacy: [facility], 162.56, cm, 11/20/21 11:15:00 CDT, Height, 87.045, kg, 11/20/21 11:15:00 CDT, Weight Ativan 0.5 0 Yes See [facility] mg oral 8-16 Instructio l tablet 14:24: ns, Take 1 [place] nn 00 tab po 1 hour prior to MRI, may repeat q 15 min. if still anxious, # 5 tab, 0 Refill(s), Pharmacy: [facility], 162.56, cm, 11/20/21 11:15:00 CDT, Height, 87.045, kg, 11/20/21 11:15:00 CDT, Weight Ativan 0.5 0 Yes See [facility] mg oral 8-16 Instructio l tablet 14:24: ns, Take 1 [place] nn 00 tab po 1 hour prior to MRI, may repeat q 15 min. if still anxious, # 5 tab, 0 Refill(s), Pharmacy: [facility], 162.56, cm, 11/20/21 11:15:00 CDT, Height, 87.045, kg, 11/20/21 11:15:00 CDT, Weight Ativan 0.5 0 Yes See Mem[facility] mg oral 8-16 Instructio l tablet 14:24: ns, Take 1 [place] nn 00 tab po 1 hour prior to MRI, may repeat q 15 min. if still anxious, # 5 tab, 0 Refill(s), Pharmacy: [facility], 162.56, cm, 11/20/21 11:15:00 CDT, Height, 87.045, kg, 11/20/21 11:15:00 CDT, Weight Ativan 0.5 0 Yes See [facility] mg oral 8-16 Instructio l tablet 14:24: ns, Take 1 [place] nn 00 tab po 1 hour prior to MRI, may repeat q 15 min. if still anxious, # 5 tab, 0 Refill(s), Pharmacy: [facility] [place], 162.56, cm, 11/20/21 11:15:00 CDT, Height, 87.045, kg, 11/20/21 11:15:00 CDT, Weight Ativan 0.5 2021-0 Yes See [facility] mg oral 8-16 Instructio l tablet 14:24: ns, Take 1 [place] nn 00 tab po 1 hour prior to MRI, may repeat q 15 min. if still anxious, # 5 tab, 0 Refill(s), Pharmacy: [facility], 162.56, cm, 11/20/21 11:15:00 CDT, Height, 87.045, kg, 11/20/21 11:15:00 CDT, Weight topiramate 2-0 Yes See [facility] 200 mg oral 8-15 Instructio l tablet 18:08: ns, TAKE [place] 00 ONE (1) TABLET(S) BY MOUTH TWICE A DAY., # 60 ea, 3 Refill(s), Pharmacy: [place] [address], 162.56, cm, 11/20/21 11:15:00 CDT, Height, 87.045, kg, 11/20/21 11:15:00 CDT, Weight topiramate 2021-0 Yes See [facility] 200 mg oral 8-15 Instructio l tablet 18:08: ns, TAKE [place] 00 ONE (1) TABLET(S) BY MOUTH TWICE A DAY., # 60 ea, 3 Refill(s), Pharmacy: [place] [address], 162.56, cm, 11/20/21 11:15:00 CDT, Height, 87.045, kg, 11/20/21 11:15:00 CDT, Weight topiramate 2-0 Yes See [facility] 200 mg oral 8-15 Instructio l tablet 18:08: ns, TAKE [place] 00 ONE (1) TABLET(S) BY MOUTH TWICE A DAY., # 60 ea, 3 Refill(s), Pharmacy: [place] [address], 162.56, cm, 11/20/21 11:15:00 CDT, Height, 87.045, kg, 11/20/21 11:15:00 CDT, Weight topiramate 2-0 Yes See [facility] 200 mg oral 8-15 Instructio l tablet 18:08: ns, TAKE [place] 00 ONE (1) TABLET(S) BY MOUTH TWICE A DAY., # 60 ea, 3 Refill(s), Pharmacy: [place] [address], 162.56, cm, 11/20/21 11:15:00 CDT, Height, 87.045, kg, 11/20/21 11:15:00 CDT, Weight topiramate 2022-0 Yes See [facility] 200 mg oral 8-15 Instructio l tablet 18:08: ns, TAKE [place] 00 ONE (1) TABLET(S) BY MOUTH TWICE A DAY., # 60 ea, 3 Refill(s), Pharmacy: [place] [address], 162.56, cm, 11/20/21 11:15:00 CDT, Height, 87.045, kg, 11/20/21 11:15:00 CDT, Weight topiramate 2022-0 Yes See [facility] 200 mg oral 8-15 Instructio l tablet 18:08: ns, TAKE [place] 00 ONE (1) TABLET(S) BY MOUTH TWICE A DAY., # 60 ea, 3 Refill(s), Pharmacy: [place] [address], 162.56, cm, 11/20/21 11:15:00 CDT, Height, 87.045, kg, 11/20/21 11:15:00 CDT, Weight topiramate 2022-0 Yes See [facility] 200 mg oral 8-15 Instructio l tablet 18:08: ns, TAKE [place] 00 ONE (1) TABLET(S) BY MOUTH TWICE A DAY., # 60 ea, 3 Refill(s), Pharmacy: [place] [address], 162.56, cm, 11/20/21 11:15:00 CDT, Height, 87.045, kg, 11/20/21 11:15:00 CDT, Weight topiramate 2022-0 Yes See [facility] 200 mg oral 8-15 Instructio l tablet 18:08: ns, TAKE [place] 00 ONE (1) TABLET(S) BY MOUTH TWICE A DAY., # 60 ea, 3 Refill(s), Pharmacy: [place] [address], 162.56, cm, 11/20/21 11:15:00 CDT, Height, 87.045, kg, 11/20/21 11:15:00 CDT, Weight topiramate 2022-0 Yes See [facility] 200 mg oral 8-15 Instructio l tablet 18:08: ns, TAKE [place] 00 ONE (1) TABLET(S) BY MOUTH TWICE A DAY., # 60 ea, 3 Refill(s), Pharmacy: [place] [address], 162.56, cm, 11/20/21 11:15:00 CDT, Height, 87.045, kg, 11/20/21 11:15:00 CDT, Weight topiramate 2022-0 Yes See [facility] 200 mg oral 8-15 Instructio l tablet 18:08: ns, TAKE [place] 00 ONE (1) TABLET(S) BY MOUTH TWICE A DAY., # 60 ea, 3 Refill(s), Pharmacy: [place] [address], 162.56, cm, 11/20/21 11:15:00 CDT, Height, 87.045, kg, 11/20/21 11:15:00 CDT, Weight topiramate 2022-0 Yes See [facility] 200 mg oral 8-15 Instructio l tablet 18:08: ns, TAKE [place] 00 ONE (1) TABLET(S) BY MOUTH TWICE A DAY., # 60 ea, 3 Refill(s), Pharmacy: [place] [address], 162.56, cm, 11/20/21 11:15:00 CDT, Height, 87.045, kg, 11/20/21 11:15:00 CDT, Weight topiramate 2022-0 Yes See [facility] 200 mg oral 8-15 Instructio l tablet 18:08: ns, TAKE [place] 00 ONE (1) TABLET(S) BY MOUTH TWICE A DAY., # 60 ea, 3 Refill(s), Pharmacy: [place] [address], 162.56, cm, 11/20/21 11:15:00 CDT, Height, 87.045, kg, 11/20/21 11:15:00 CDT, Weight topiramate 2022-0 Yes See [facility] 200 mg oral 8-15 Instructio l tablet 18:08: ns, TAKE [place] 00 ONE (1) TABLET(S) BY MOUTH TWICE A DAY., # 60 ea, 3 Refill(s), Pharmacy: [place] [address], 162.56, cm, 11/20/21 11:15:00 CDT, Height, 87.045, kg, 11/20/21 11:15:00 CDT, Weight topiramate 2021-0 No See [facility] 200 mg oral 8-15 Instructio l tablet 15:50: ns, TAKE [place] 00 ONE (1) TABLET(S) BY MOUTH TWICE A DAY., # 60 ea, 5 Refill(s), Pharmacy: [facility], 162.56, cm, 11/20/21 11:15:00 CDT, Height, 87.045, kg, 11/20/21 11:15:00 CDT, Weight topiramate 2021-0 No See [facility] 200 mg oral 8-15 Instructio l tablet 15:50: ns, TAKE [place] 00 ONE (1) TABLET(S) BY MOUTH TWICE A DAY., # 60 ea, 5 Refill(s), Pharmacy: [facility], 162.56, cm, 11/20/21 11:15:00 CDT, Height, 87.045, kg, 11/20/21 11:15:00 CDT, Weight topiramate 2021-0 No See [facility] 200 mg oral 8-15 Instructio l tablet 15:50: ns, TAKE [place] 00 ONE (1) TABLET(S) BY MOUTH TWICE A DAY., # 60 ea, 5 Refill(s), Pharmacy: [facility], 162.56, cm, 11/20/21 11:15:00 CDT, Height, 87.045, kg, 11/20/21 11:15:00 CDT, Weight topiramate 2021-0 No See [facility] 200 mg oral 8-15 Instructio l tablet 15:50: ns, TAKE [place] 00 ONE (1) TABLET(S) BY MOUTH TWICE A DAY., # 60 ea, 5 Refill(s), Pharmacy: [facility], 162.56, cm, 11/20/21 11:15:00 CDT, Height, 87.045, kg, 11/20/21 11:15:00 CDT, Weight topiramate 2021-0 No See [facility] 200 mg oral 8-15 Instructio l tablet 15:50: ns, TAKE [place] 00 ONE (1) TABLET(S) BY MOUTH TWICE A DAY., # 60 ea, 5 Refill(s), Pharmacy: [facility], 162.56, cm, 11/20/21 11:15:00 CDT, Height, 87.045, kg, 11/20/21 11:15:00 CDT, Weight topiramate 2-0 No See [facility] 200 mg oral 8-15 Instructio l tablet 15:50: ns, TAKE [place] 00 ONE (1) TABLET(S) BY MOUTH TWICE A DAY., # 60 ea, 5 Refill(s), Pharmacy: [facility], 162.56, cm, 11/20/21 11:15:00 CDT, Height, 87.045, kg, 11/20/21 11:15:00 CDT, Weight topiramate 2-0 No See [facility] 200 mg oral 8-15 Instructio l tablet 15:50: ns, TAKE [place] 00 ONE (1) TABLET(S) BY MOUTH TWICE A DAY., # 60 ea, 5 Refill(s), Pharmacy: [facility], 162.56, cm, 11/20/21 11:15:00 CDT, Height, 87.045, kg, 11/20/21 11:15:00 CDT, Weight topiramate 2-0 No See [facility] 200 mg oral 8-15 Instructio l tablet 15:50: ns, TAKE [place] 00 ONE (1) TABLET(S) BY MOUTH TWICE A DAY., # 60 ea, 5 Refill(s), Pharmacy: [facility], 162.56, cm, 11/20/21 11:15:00 CDT, Height, 87.045, kg, 11/20/21 11:15:00 CDT, Weight topiramate 2-0 No See [facility] 200 mg oral 8-15 Instructio l tablet 15:50: ns, TAKE [place] 00 ONE (1) TABLET(S) BY MOUTH TWICE A DAY., # 60 ea, 5 Refill(s), Pharmacy: [facility], 162.56, cm, 11/20/21 11:15:00 CDT, Height, 87.045, kg, 11/20/21 11:15:00 CDT, Weight topiramate 2022-0 No See [facility] 200 mg oral 8-15 Instructio l tablet 15:50: ns, TAKE [place] 00 ONE (1) TABLET(S) BY MOUTH TWICE A DAY., # 60 ea, 5 Refill(s), Pharmacy: [facility], 162.56, cm, 11/20/21 11:15:00 CDT, Height, 87.045, kg, 11/20/21 11:15:00 CDT, Weight topiramate 2021-0 No See [facility] 200 mg oral 8-15 Instructio l tablet 15:50: ns, TAKE [place] 00 ONE (1) TABLET(S) BY MOUTH TWICE A DAY., # 60 ea, 5 Refill(s), Pharmacy: [facility], 162.56, cm, 11/20/21 11:15:00 CDT, Height, 87.045, kg, 11/20/21 11:15:00 CDT, Weight topiramate 2021-0 No See [facility] 200 mg oral 8-15 Instructio l tablet 15:50: ns, TAKE [place] 00 ONE (1) TABLET(S) BY MOUTH TWICE A DAY., # 60 ea, 5 Refill(s), Pharmacy: [facility], 162.56, cm, 11/20/21 11:15:00 CDT, Height, 87.045, kg, 11/20/21 11:15:00 CDT, Weight topiramate 2021-0 No See [facility] 200 mg oral 8-15 Instructio l tablet 15:50: ns, TAKE [place] 00 ONE (1) TABLET(S) BY MOUTH TWICE A DAY., # 60 ea, 5 Refill(s), Pharmacy: [facility], 162.56, cm, 11/20/21 11:15:00 CDT, Height, 87.045, kg, 11/20/21 11:15:00 CDT, Weight &lt 2-0 No 200 8-04 00:00: 00 TAKE 2022-0 No 200 ONE-HALF 8-04 (04/13) 00:00: TABLET(S) 00 BY MOUTH TWICE A DAY. &lt 2022-0 No 200 8-04 00:00: 00 TAKE ONE 2021-0 No 10 (1) 8-04 TABLET(S) 00:00: BY MOUTH 00 EVERY MORNING. &lt 2022-0 No 8-04 00:00: 00 &lt 2022-0 No 200 8-04 00:00: 00 TAKE 2022-0 No 200 ONE-HALF 8-04 (04/13) 00:00: TABLET(S) 00 BY MOUTH TWICE A DAY. &lt 2022-0 No 200 8-04 00:00: 00 TAKE ONE 2022-0 No 10 (1) 8-04 TABLET(S) 00:00: BY MOUTH 00 EVERY MORNING. &lt 2022-0 No 8-04 00:00: 00 &lt 2022-0 No 200 8-04 00:00: 00 TAKE 2022-0 No 200 ONE-HALF 8-04 (04/13) 00:00: TABLET(S) 00 BY MOUTH TWICE A DAY. &lt 2022-0 No 200 8-04 00:00: 00 TAKE ONE 2022-0 No 10 (1) 8-04 TABLET(S) 00:00: BY MOUTH 00 EVERY MORNING. &lt 2022-0 No 8-04 00:00: 00 &lt 2022-0 No 7-15 00:00: 00 TAKE ONE 2022-0 No 20 (1) 7-15 CAPSULE(S) 00:00: BY MOUTH 00 ONCE A DAY IN THE MORNING. &lt 2022-0 No 7-15 00:00: 00 &lt 2022-0 No 7-15 00:00: 00 TAKE ONE 2022-0 No 20 (1) 7-15 CAPSULE(S) 00:00: BY MOUTH 00 ONCE A DAY IN THE MORNING. &lt 2022-0 No 7-15 00:00: 00 &lt 2022-0 No 7-15 00:00: 00 TAKE ONE 2022-0 No 20 (1) 7-15 CAPSULE(S) 00:00: BY MOUTH 00 ONCE A DAY IN THE MORNING. &lt 2022-0 No 7-15 00:00: 00 citalopram 2022-0 2022- No 10mg Take 10 mg [facility] 10 mg 10-21 by mouth ity of tablet 10:56: 00:00 every [place] 12 :00 morning. [facility] citalopram 2022-0 2022- No 10mg Take 10 mg [facility] 10 mg 10-2112 by mouth ity of tablet 10:56: 00:00 every [place] 12 :00 morning. [facility] cariprazine 2021- [...] 55 (two) Medical times Branch daily. topiramate 0 Yes 200mg Take 200 Un richar 200 mg 7-12 mg by ity of tablet 10:45: mouth 2 [place] 55 (two) Medical times Branch daily. MULTIVITAMI 0 Yes 1{tbl} Take 1 Un richar N ORAL 7-12 tablet by ity of 10:45: mouth [place] [address] daily. [facility] valACYclovi 0 Yes 1g Take 1 g Un richar r 1 gram 7-12 by mouth ity of tablet 10:45: daily. [place] [address] [facility] carBAMazepi 0 Yes 100mg Take 100 U nivers ne 200 mg 7-12 mg by ity of 12 hr 10:45: mouth 2 [place] capsule 55 (two) Medical times Branch daily. topiramate 0 Yes 200mg Take 200 Un richar 200 mg 7-12 mg by ity of tablet 10:45: mouth 2 [place] 55 (two) Medical times Branch daily. MULTIVITAMI 2021-0 Yes 1{tbl} Take 1 Un richar N ORAL 7-12 tablet by ity of 10:45: mouth [place] [address] daily. [facility] valACYclovi 0 Yes 1g Take 1 g Un richar r 1 gram 7-12 by mouth ity of tablet 10:45: daily. [place] [address] [facility] carBAMazepi 0 Yes 100mg Take 100 U nivers ne 200 mg 7-12 mg by ity of 12 hr 10:45: mouth 2 [place] capsule 55 (two) Medical times Branch daily. topiramate 2022-0 Yes 200mg Take 200 Un richar 200 mg 7-12 mg by ity of tablet 10:45: mouth 2 [place] 55 (two) Medical times Branch daily. MULTIVITAMI 202-0 Yes 1{tbl} Take 1 Un richar N ORAL 7-12 tablet by ity of 10:45: mouth [place] 55 daily. Medical [facility] valACYclovi 2021-0 Yes 1g Take 1 g Un richar r 1 gram 7-12 by mouth ity of tablet 10:45: daily. [place] [address] [facility] carBAMazepi 2021-0 Yes 100mg Take 100 U nivers ne 200 mg 7-12 mg by ity of 12 hr 10:45: mouth 2 [place] capsule 55 (two) Medical times Branch daily. topiramate 2021-0 Yes 200mg Take 200 Un richar 200 mg 7-12 mg by ity of tablet 10:45: mouth 2 [place] [address] (two) Medical times Branch daily. MULTIVITAMI 202-0 Yes 1{tbl} Take 1 Un richar N ORAL 7-12 tablet by ity of 10:45: mouth [place] [address] daily. Medical Branch valACYclovi 2021-0 Yes 1g Take 1 g Un richar r 1 gram 7-12 by mouth ity of tablet 10:45: daily. [place] [address] Medical Branch busPIRone 2021-0 Yes 10mg Take 10 mg Un richar 10 mg 7-09 by mouth ity of tablet 00:00: in the [place] [address] morning. Medical Branch busPIRone 2022-0 Yes 10mg Take 10 mg Un richar 10 mg 7-09 by mouth ity of tablet 00:00: in the [place] [address] morning. Medical [facility] busPIRone 2022-0 Yes 10mg Take 10 mg Un richar 10 mg 7-09 by mouth ity of tablet 00:00: in the [place] [id number] morning. [facility] busPIRone 2022-0 Yes 10mg Take 10 mg Un richar 10 mg 7-09 by mouth ity of tablet 00:00: in the [place] [id number] morning. [facility] busPIRone 2022-0 Yes 10mg Take 10 mg Un richar 10 mg 7-09 by mouth ity of tablet 00:00: in the [place] [id number] morning. [facility] busPIRone 2022-0 Yes 10mg Take 10 mg Un richar 10 mg 7-09 by mouth ity of tablet 00:00: in the [place] 00 morning. [facility] busPIRone 2022-0 Yes 10mg Take 10 mg Un richar 10 mg 7-09 by mouth ity of tablet 00:00: in the [place] 00 morning. [facility] busPIRone 2022-0 Yes 10mg Take 10 mg Un richar 10 mg 7-09 by mouth ity of tablet 00:00: in the [place] 00 morning. [facility] busPIRone 2022-0 Yes 10mg Take 10 mg Un richar 10 mg 7-09 by mouth ity of tablet 00:00: in the [place] 00 morning. [facility] busPIRone 2022-0 Yes 10mg Take 10 mg Un richar 10 mg 7-09 by mouth ity of tablet 00:00: in the [place] 00 morning. [facility] busPIRone 2022-0 Yes 10mg Take 10 mg Un richar 10 mg 7-09 by mouth ity of tablet 00:00: in the [place] 00 morning. [facility] busPIRone 2022-0 Yes 10mg Take 10 mg Un richar 10 mg 7-09 by mouth ity of tablet 00:00: in the [place] 00 morning. [facility] busPIRone 2022-0 Yes 10mg Take 10 mg Un richar 10 mg 7-09 by mouth ity of tablet 00:00: in the [place] 00 morning. [facility] busPIRone 2022-0 Yes 10mg Take 10 mg Un richar 10 mg 7-09 by mouth ity of tablet 00:00: in the [place] 00 morning. [facility] busPIRone 2022-0 Yes 10mg Take 10 mg Un richar 10 mg 7-09 by mouth ity of tablet 00:00: in the [place] 00 morning. [facility] busPIRone 2022-0 Yes 10mg Take 1 Univer s 10 mg 7-09 tablet by ity of tablet 00:00: mouth in [place] 00 the Medical morning. Branch busPIRone 2022-0 Yes 10mg Take 1 Univer s 10 mg 7-09 tablet by ity of tablet 00:00: mouth in [place] 00 the Medical morning. Branch busPIRone 2022-0 Yes 10mg Take 1 Univer s 10 mg 7-09 tablet by ity of tablet 00:00: mouth in [place] 00 the Medical morning. Branch busPIRone 2022-0 Yes 10mg Take 1 Univer s 10 mg 7-09 tablet by ity of tablet 00:00: mouth in [place] 00 the Medical morning. Branch busPIRone 2022-0 Yes 10mg Take 1 Univer s 10 mg 7-09 tablet by ity of tablet 00:00: mouth in [place] 00 the Medical morning. Branch busPIRone 2022-0 Yes 10mg Take 1 Univer s 10 mg 7-09 tablet by ity of tablet 00:00: mouth in [place] 00 the Medical morning. Branch busPIRone 2022-0 Yes 10mg Take 1 Univer s 10 mg 7-09 tablet by ity of tablet 00:00: mouth in [place] 00 the Medical morning. Branch busPIRone 2022-0 Yes 10mg Take 1 Univer s 10 mg 7-09 tablet by ity of tablet 00:00: mouth in [place] 00 the Medical morning. Branch busPIRone 2022-0 Yes 10mg Take 1 Univer s 10 mg 7-09 tablet by ity of tablet 00:00: mouth in [place] 00 the Medical morning. Branch VRAYLAR 6 2021-0 Yes 1{tbl} Take 1 [facility] mg Cap 7-06 tablet by [facility]y of 00:00: mouth [place] 00 every Medical evening. Branch VRAYLAR 6 2021-0 Yes 1{tbl} Take 1 [facility] mg Cap 7-06 tablet by [facility]y of 00:00: mouth [place] 00 every Medical evening. Branch VRAYLAR 6 2021-0 Yes 1{tbl} Take 1 [facility] mg Cap 7-06 tablet by [facility]y of 00:00: mouth [place] 00 every Medical evening. Branch VRAYLAR 6 2021-0 Yes 1{tbl} Take 1 [facility] mg Cap 7-06 tablet by [facility]y of 00:00: mouth [place] 00 every Medical evening. Branch CARIPRAZINE 2021-0 Yes 1{tbl} Take 1 [facility] 4.5 mg Cap 7-06 tablet by ity of 00:00: mouth [place] 00 every Medical evening. Branch CARIPRAZINE 2021-0 Yes 1{tbl} Take 1 Un [facility] 4.5 mg Cap 7-06 tablet by ity of 00:00: mouth [place] 00 every Medical evening. Branch CARIPRAZINE 2022-0 Yes 1{tbl} Take 1 Un [facility] 4.5 mg Cap 7-06 tablet by ity of 00:00: mouth [place] 00 every Medical evening. Branch CARIPRAZINE 2-0 Yes 1{tbl} Take 1 Un [facility] 4.5 mg Cap 7-06 tablet by ity of 00:00: mouth [place] 00 every Medical evening. Branch CARIPRAZINE 2022-0 Yes 1{tbl} Take 1 Un [facility] 4.5 mg Cap 7-06 tablet by ity of 00:00: mouth [place] 00 every Medical evening. Branch CARIPRAZINE 2-0 Yes 1{tbl} Take 1 Un [facility] 4.5 mg Cap 7-06 tablet by ity of 00:00: mouth [place] 00 every Medical evening. Branch CARIPRAZINE 2-0 Yes 1{tbl} Take 1 Un [facility] 4.5 mg Cap 7-06 tablet by ity of 00:00: mouth [place] 00 every Medical evening. Branch CARIPRAZINE 2-0 Yes 1{tbl} Take 1 Un [facility] 4.5 mg Cap 7-06 tablet by ity of 00:00: mouth [place] 00 every Medical evening. Branch CARIPRAZINE 2-0 Yes 1{tbl} Take 1 Un rich[facility] 4.5 mg Cap 7-06 tablet by ity of 00:00: mouth [place] 00 every Medical evening. Branch CARIPRAZINE 2-0 Yes 1{tbl} Take 1 Un rich[facility] 4.5 mg Cap 7-06 tablet by ity of 00:00: mouth [place] 00 every Medical evening. Branch CARIPRAZINE 2022-0 Yes 1{tbl} Take 1 Un richar 4.5 mg Cap 7-06 tablet by ity of 00:00: mouth [place] 00 every Medical evening. Branch CARIPRAZINE 2022-0 Yes 1{tbl} Take 1 Un [facility] 4.5 mg Cap 7-06 tablet by ity of 00:00: mouth [place] 00 every Medical evening. Branch CARIPRAZINE 2022-0 Yes 1{tbl} Take 1 Un [facility] 4.5 mg Cap 7-06 tablet by ity of 00:00: mouth [place] 00 every Medical evening. Branch CARIPRAZINE 2022-0 Yes 1{tbl} Take 1 Un [facility] 4.5 mg Cap 7-06 tablet by ity of 00:00: mouth [place] 00 every Medical evening. Branch CARIPRAZINE 0 Yes 1{tbl} Take 1 Un [facility] 4.5 mg Cap 7-06 tablet by ity of 00:00: mouth [place] 00 every Medical evening. Branch CARIPRAZINE 2021-0 Yes 1{tbl} Take 1 [facility] 4.5 mg Cap 7-06 tablet by ity of 00:00: mouth [place] 00 every Medical evening. Branch CARIPRAZINE 2021-0 Yes 1{tbl} Take 1 Un [facility] 4.5 mg Cap 7-06 tablet by ity of 00:00: mouth [place] 00 every Medical evening. Branch CARIPRAZINE 0 Yes 1{tbl} Take 1 [facility] 4.5 mg Cap 7-06 tablet by ity of 00:00: mouth [place] 00 every Medical evening. Branch CARIPRAZINE 2021-0 Yes 1{tbl} Take 1 Un [facility] 4.5 mg Cap 7-06 tablet by ity of 00:00: mouth [place] 00 every Medical evening. Branch CARIPRAZINE 0 Yes 1{tbl} Take 1 Un rich[facility] 4.5 mg Cap 7-06 tablet by ity of 00:00: mouth [place] 00 every Medical evening. [employer] Flovent HFA 0 No 2mcg/ac 110 6-11 tuation mcg/actuati 00:00: on aerosol 00 inhaler ProAir HFA 0 No 12mcg/a 90 6-11 ctuatio mcg/actuati 00:00: n on aerosol 00 inhaler Spiriva 0 No 1mcg with 6-11 HandiHaler 00:00: 18 mcg and 00 inhalation capsules valacyclovi 0 No 1gram r 1 gram 6-11 tablet 00:00: 00 &lt 2021-0 No 6-11 00:00: 00 &lt 2021-0 No 6-11 00:00: 00 &lt 2021-0 No 6-11 00:00: 00 &lt 2021-0 No 6-11 00:00: 00 &lt 2021-0 No 6-11 00:00: 00 &lt 2021-0 No 6-11 00:00: 00 Flovent HFA 2021-0 No 2mcg/ac 110 6-11 tuation mcg/actuati 00:00: on aerosol 00 inhaler ProAir HFA 2021-0 No 12mcg/a 90 6-11 ctuatio mcg/actuati 00:00: n on aerosol 00 inhaler Spiriva 2021-0 No 1mcg with 6-11 HandiHaler 00:00: 18 mcg and 00 inhalation capsules valacyclovi 2021-0 No 1gram r 1 gram 6-11 tablet 00:00: 00 &lt 2021-0 No 6-11 00:00: 00 &lt 2-0 No 6-11 00:00: 00 &lt 2021-0 No 6-11 00:00: 00 &lt 2021-0 No 6-11 00:00: 00 &lt 2021-0 No 6-11 00:00: 00 &lt 2021-0 No 6-11 00:00: 00 Flovent HFA 2021-0 No 2mcg/ac 110 6-11 tuation mcg/actuati 00:00: on aerosol 00 inhaler ProAir HFA 2021-0 No 12mcg/a 90 6-11 ctuatio mcg/actuati 00:00: n on aerosol 00 inhaler Spiriva 2021-0 No 1mcg with 6-11 HandiHaler 00:00: 18 mcg and 00 inhalation capsules valacyclovi 2021-0 No 1gram r 1 gram 6-11 tablet 00:00: 00 &lt 2021-0 No 6-11 00:00: 00 &lt 2-0 No 6-11 00:00: 00 &lt 2021-0 No 6-11 00:00: 00 &lt 2-0 No 6-11 00:00: 00 &lt 2021-0 No 6-11 00:00: 00 &lt 2021-0 No 6-11 00:00: 00 FLUoxetine 2021-0 Yes TAKE ONE [facility] 20 mg oral 4-07 (1) l capsule 19:31: CAPSULE(S) [facility] laxmi 00 BY MOUTH ONCE A DAY IN THE MORNING. FLUoxetine 0 Yes TAKE ONE [facility] 20 mg oral 4-07 (1) l capsule 19:31: CAPSULE(S) [facility] laxmi 00 BY MOUTH ONCE A DAY IN THE MORNING. FLUoxetine 0 Yes TAKE ONE [facility] 20 mg oral 4-07 (1) l capsule 19:31: CAPSULE(S) [facility] laxmi 00 BY MOUTH ONCE A DAY IN THE MORNING. FLUoxetine Yes TAKE ONE [facility] 20 mg oral 4-07 (1) l capsule 19:31: CAPSULE(S) [facility] laxmi 00 BY MOUTH ONCE A DAY IN THE MORNING. FLUoxetine Yes TAKE ONE [facility] 20 mg oral 4-07 (1) l capsule 19:31: CAPSULE(S) [facility] laxmi 00 BY MOUTH ONCE A DAY IN THE MORNING. FLUoxetine Yes TAKE ONE [facility] 20 mg oral 4-07 (1) l capsule 19:31: CAPSULE(S) [facility] laxmi 00 BY MOUTH ONCE A DAY IN THE MORNING. FLUoxetine Yes TAKE ONE [facility] 20 mg oral 4-07 (1) l capsule 19:31: CAPSULE(S) [facility] laxmi 00 BY MOUTH ONCE A DAY IN THE MORNING. FLUoxetine Yes TAKE ONE [facility] 20 mg oral 4-07 (1) l capsule 19:31: CAPSULE(S) [facility] laxmi 00 BY MOUTH ONCE A DAY IN THE MORNING. FLUoxetine Yes TAKE ONE [facility] 20 mg oral 4-07 (1) l capsule 19:31: CAPSULE(S) [facility] laxmi 00 BY MOUTH ONCE A DAY IN THE MORNING. FLUoxetine Yes TAKE ONE [facility] 20 mg oral 4-07 (1) l capsule 19:31: CAPSULE(S) [facility] laxmi 00 BY MOUTH ONCE A DAY IN THE MORNING. FLUoxetine Yes TAKE ONE [facility] 20 mg oral 4-07 (1) l capsule 19:31: CAPSULE(S) [facility] laxmi 00 BY MOUTH ONCE A DAY IN THE MORNING. FLUoxetine Yes TAKE ONE [facility] 20 mg oral 4-07 (1) l capsule 19:31: CAPSULE(S) [facility] laxmi 00 BY MOUTH ONCE A DAY IN THE MORNING. FLUoxetine Yes TAKE ONE [facility] 20 mg oral 4-07 (1) l capsule 19:31: CAPSULE(S) [facility] laxmi 00 BY MOUTH ONCE A DAY IN THE MORNING. PROzac 0 No PO, Daily, [facility] 4-07 0 l 19:30: Refill(s) [facility] 00 PROzac 2021-0 No PO, Daily, [facility] 4-07 0 l 19:30: Refill(s) [facility] PROzac 0 No PO, Daily, [facility] 4-07 0 l 19:30: Refill(s) [facility] PROzac 0 No PO, Daily, [facility] 4-07 0 l 19:30: Refill(s) [facility] PROzac 0 No PO, Daily, [facility] 4-07 0 l 19:30: Refill(s) [facility] PROzac 0 No PO, Daily, [facility] 4-07 0 l 19:30: Refill(s) [facility] PROzac 0 No PO, Daily, [facility] 4-07 0 l 19:30: Refill(s) [place] PROzac 0 No PO, Daily, [facility] 4-07 0 l 19:30: Refill(s) [place] PROzac 0 No PO, Daily, [facility] 4-07 0 l 19:30: Refill(s) [facility] PROzac 0 No PO, Daily, [facility] 4-07 0 l 19:30: Refill(s) [place] PROzac 0 No PO, Daily, [facility] 4-07 0 l 19:30: Refill(s) [place] PROzac 0 No PO, Daily, [facility] 4-07 0 l 19:30: Refill(s) [place] PROzac 0 No PO, Daily, [facility] 4-07 0 l 19:30: Refill(s) [facility] Dose 2021-0 No Unknown 3-29 00:00: 00 Dose 2021-0 No Unknown 3- 00:00: 00 Dose 2021-0 No Unknown 3- 00:00: 00 Dose 2021-0 No Unknown 3- 00:00: 00 Dose 2021-0 No Unknown 3- 00:00: 00 Dose 2021-0 No Unknown 3- 00:00: 00 Dose 2021-0 No Unknown 3- 00:00: 00 Dose 2021-0 No Unknown 3- 00:00: 00 Dose 2021-0 No Unknown 3-27 00:00: 00 Dose 2022-0 No Unknown 3-25 00:00: 00 Dose 2022-0 No Unknown 3-25 00:00: 00 Dose 2022-0 No Unknown 3-25 00:00: 00 Dose 2022-0 No Unknown 3-25 00:00: 00 Dose 2022-0 No Unknown 3-25 00:00: 00 Dose 2022-0 No Unknown 3-25 00:00: 00 Dose 2022-0 No Unknown 3-25 00:00: 00 Dose 2022-0 No Unknown 3-25 00:00: 00 Dose 2022-0 No Unknown 3-25 00:00: 00 Dose 2022-0 No Unknown 3-25 00:00: 00 Dose 2022-0 No Unknown 3-25 00:00: 00 Dose 2022-0 No Unknown 3-25 00:00: 00 Dose 2022-0 No Unknown 3-25 00:00: 00 Dose 2022-0 No Unknown 3-25 00:00: 00 Dose 2022-0 No Unknown 3-25 00:00: 00 Dose 2022-0 No Unknown 3-25 00:00: 00 Dose 2022-0 No Unknown 3-25 00:00: 00 Dose 2022-0 No Unknown 3-25 00:00: 00 Dose 2022-0 No Unknown 3-25 00:00: 00 Dose 2022-0 No Unknown 3-25 00:00: 00 Dose 2022-0 No Unknown 3-25 00:00: 00 Dose 2022-0 No Unknown 3-25 00:00: 00 Dose 2022-0 No Unknown 3-25 00:00: 00 Dose 2022-0 No Unknown 3-25 00:00: 00 Dose 2022-0 No Unknown 3-25 00:00: 00 Dose 2022-0 No Unknown 3-25 00:00: 00 Dose 2022-0 No Unknown 3-25 00:00: 00 Dose 2022-0 No Unknown 3-25 00:00: 00 Dose 2022-0 No Unknown 3-25 00:00: 00 Dose 2022-0 No Unknown 3-25 00:00: 00 Prozac 20 2022-0 No 1mg mg capsule 3-05 00:00: 00 Prozac 20 2022-0 No 1mg mg capsule 3-05 00:00: 00 Prozac 20 2022-0 No 1mg mg capsule 3-05 00:00: 00 Dose 2022-0 No Unknown 1-08 00:00: 00 Dose 2022-0 No Unknown 1-08 00:00: 00 Dose 2022-0 No Unknown 1-08 00:00: 00 Dose 2022-0 No Unknown 1-08 00:00: 00 Dose 2022-0 No Unknown 1-08 00:00: 00 Dose 2022-0 No Unknown 1-08 00:00: 00 Dose 2022-0 No Unknown 1-08 00:00: 00 Dose 2022-0 No Unknown 1-08 00:00: 00 Dose 2022-0 No Unknown 1-08 00:00: 00 Dose 2022-0 No Unknown 1-08 00:00: 00 Dose 2022-0 No Unknown 1-08 00:00: 00 Dose 2022-0 No Unknown 1-08 00:00: 00 Dose 2022-0 No Unknown 1-08 00:00: 00 Dose 2022-0 No Unknown 1-08 00:00: 00 Dose 2022-0 No Unknown 1-08 00:00: 00 Flovent HFA 2022-0 No 2mcg/ac 110 1-04 tuation mcg/actuati 00:00: on aerosol 00 inhaler ProAir HFA 2022-0 No 12mcg/a 90 1-04 ctuatio mcg/actuati 00:00: n on aerosol 00 inhaler Spiriva 2022-0 No 1mcg with 1-04 HandiHaler 00:00: 18 mcg and 00 inhalation capsules Flovent HFA 2022-0 No 2mcg/ac 110 1-04 tuation mcg/actuati 00:00: on aerosol 00 inhaler ProAir HFA 2022-0 No 12mcg/a 90 1-04 ctuatio mcg/actuati 00:00: n on aerosol 00 inhaler Spiriva 2022-0 No 1mcg with 1-04 HandiHaler 00:00: 18 mcg and 00 inhalation capsules Flovent HFA 2022-0 No 2mcg/ac 110 1-04 tuation mcg/actuati 00:00: on aerosol 00 inhaler ProAir HFA 2022-0 No 12mcg/a 90 1-04 ctuatio mcg/actuati 00:00: n on aerosol 00 inhaler Spiriva 2-0 No 1mcg with 1-04 HandiHaler 00:00: 18 mcg and 00 inhalation capsules bupropion 2020-04 No 1mg HCl XL 150 2-18 mg 24 hr 00:00: tablet, 00 extended release carbamazepi 2020-04 No 12mg ne 200 mg 2-18 tablet 00:00: 00 bupropion 2020-04 No 1mg HCl XL 150 2-18 mg 24 hr 00:00: tablet, 00 extended release carbamazepi 2020-04 No 12mg ne 200 mg 2-18 tablet 00:00: 00 bupropion 2020-04 No 1mg HCl XL 150 2-18 mg 24 hr 00:00: tablet, 00 extended release carbamazepi 2020-04 No 12mg ne 200 mg 2-18 tablet 00:00: 00 topiramate 2020-04 Yes See [facility] 200 mg oral 2-15 Instructio l tablet 15:31: ns, TAKE [facility] 00 ONE (1) TABLET(S) BY MOUTH TWICE A DAY., # 60 ea, 5 Refill(s), Pharmacy: [facility] [id number], 167.64, cm, 11/20/20 13:56:00 CDT, Height, 86.364, kg, 11/20/20 13:56:00 CDT, Weight topiramate 2020-04 Yes See [facility] 200 mg oral 2-15 Instructio l tablet 15:31: ns, TAKE [place] 00 ONE (1) TABLET(S) BY MOUTH TWICE A DAY., # 60 ea, 5 Refill(s), Pharmacy: [facility] [id number], 167.64, cm, 11/20/20 13:56:00 CDT, Height, 86.364, kg, 11/20/20 13:56:00 CDT, Weight topiramate 2020-04 Yes See [facility] 200 mg oral 2-15 Instructio l tablet 15:31: ns, TAKE [facility] 00 ONE (1) TABLET(S) BY MOUTH TWICE A DAY., # 60 ea, 5 Refill(s), Pharmacy: [facility] [id number], 167.64, cm, 11/20/20 13:56:00 CDT, Height, 86.364, kg, 11/20/20 13:56:00 CDT, Weight topiramate 2020-04 Yes See [facility] 200 mg oral 2-15 Instructio l tablet 15:31: ns, TAKE [facility] 00 ONE (1) TABLET(S) BY MOUTH TWICE A DAY., # 60 ea, 5 Refill(s), Pharmacy: [facility] [id number], 167.64, cm, 11/20/20 13:56:00 CDT, Height, 86.364, kg, 11/20/20 13:56:00 CDT, Weight topiramate 2020-04 Yes See [facility] 200 mg oral 2-15 Instructio l tablet 15:31: ns, TAKE [place] 00 ONE (1) TABLET(S) BY MOUTH TWICE A DAY., # 60 ea, 5 Refill(s), Pharmacy: [facility] [id number], 167.64, cm, 11/20/20 13:56:00 CDT, Height, 86.364, kg, 11/20/20 13:56:00 CDT, Weight topiramate 2020-04 Yes See [facility] 200 mg oral 2-15 Instructio l tablet 15:31: ns, TAKE [place] 00 ONE (1) TABLET(S) BY MOUTH TWICE A DAY., # 60 ea, 5 Refill(s), Pharmacy: [facility] [id number], 167.64, cm, 11/20/20 13:56:00 CDT, Height, 86.364, kg, 11/20/20 13:56:00 CDT, Weight topiramate 2020-04 Yes See [facility] 200 mg oral 2-15 Instructio l tablet 15:31: ns, TAKE [facility] 00 ONE (1) TABLET(S) BY MOUTH TWICE A DAY., # 60 ea, 5 Refill(s), Pharmacy: [facility] [id number], 167.64, cm, 11/20/20 13:56:00 CDT, Height, 86.364, kg, 11/20/20 13:56:00 CDT, Weight topiramate 2020-04 Yes See [facility] 200 mg oral 2-15 Instructio l tablet 15:31: ns, TAKE [place] 00 ONE (1) TABLET(S) BY MOUTH TWICE A DAY., # 60 ea, 5 Refill(s), Pharmacy: [facility] [id number], 167.64, cm, 11/20/20 13:56:00 CDT, Height, 86.364, kg, 11/20/20 13:56:00 CDT, Weight topiramate 2020-04 Yes See [facility] 200 mg oral 2-15 Instructio l tablet 15:31: ns, TAKE [place] 00 ONE (1) TABLET(S) BY MOUTH TWICE A DAY., # 60 ea, 5 Refill(s), Pharmacy: [facility] [id number], 167.64, cm, 11/20/20 13:56:00 CDT, Height, 86.364, kg, 11/20/20 13:56:00 CDT, Weight topiramate 2020-04 Yes See [facility] 200 mg oral 2-15 Instructio l tablet 15:31: ns, TAKE [place] 00 ONE (1) TABLET(S) BY MOUTH TWICE A DAY., # 60 ea, 5 Refill(s), Pharmacy: [facility] [id number], 167.64, cm, 11/20/20 13:56:00 CDT, Height, 86.364, kg, 11/20/20 13:56:00 CDT, Weight topiramate 2020-04 Yes See [facility] 200 mg oral 2-15 Instructio l tablet 15:31: ns, TAKE [place] 00 ONE (1) TABLET(S) BY MOUTH TWICE A DAY., # 60 ea, 5 Refill(s), Pharmacy: [facility] [id number], 167.64, cm, 11/20/20 13:56:00 CDT, Height, 86.364, kg, 11/20/20 13:56:00 CDT, Weight topiramate 2020-04 Yes See [facility] 200 mg oral 2-15 Instructio l tablet 15:31: ns, TAKE [facility] 00 ONE (1) TABLET(S) BY MOUTH TWICE A DAY., # 60 ea, 5 Refill(s), Pharmacy: [facility] [facility] [id number], 167.64, cm, 11/20/20 13:56:00 CDT, Height, 86.364, kg, 11/20/20 13:56:00 CDT, Weight topiramate 2020-04 Yes See [facility] 200 mg oral 2-15 Instructio l tablet 15:31: ns, TAKE [facility] 00 ONE (1) TABLET(S) BY MOUTH TWICE A DAY., # 60 ea, 5 Refill(s), Pharmacy: [facility] [id number], 167.64, cm, 11/20/20 13:56:00 CDT, Height, 86.364, kg, 11/20/20 13:56:00 CDT, Weight Bupropion 2020-04 Yes 100 mg = 1 Me moria Hydrochlori 2-09 tab, PO, l de 100 MG 19:24: BID, # 60 Her [facility] Oral Tablet 00 tab, 0 [Wellbutrin Refill(s) ] Bupropion 2020-04 Yes 100 mg = 1 Me moria Hydrochlori 2-09 tab, PO, l de 100 MG 19:24: BID, # 60 [facility] fried[facility] Oral Tablet 00 tab, 0 [Wellbutrin Refill(s) ] Bupropion 2020-04 Yes 100 mg = 1 Me moria Hydrochlori 2-09 tab, PO, l de 100 MG 19:24: BID, # 60 Her fried[facility] Oral Tablet 00 tab, 0 [Wellbutrin Refill(s) ] Bupropion 2020-04 Yes 100 mg = 1 Me moria Hydrochlori 2-09 tab, PO, l de 100 MG 19:24: BID, # 60 [facility] fried[facility] Oral Tablet 00 tab, 0 [Wellbutrin Refill(s) ] Bupropion 2020-04 Yes 100 mg = 1 Me mor[facility] Hydrochlori 2-09 tab, PO, l de 100 MG 19:24: BID, # 60 [facility] fried[facility] Oral Tablet 00 tab, 0 [Wellbutrin Refill(s) ] Bupropion 2020-04 Yes 100 mg = 1 Me moria Hydrochlori 2-09 tab, PO, l de 100 MG 19:24: BID, # 60 [facility] fried[facility] Oral Tablet 00 tab, 0 [Wellbutrin Refill(s) ] Bupropion 2020-04 Yes 100 mg = 1 Me moria Hydrochlori 2-09 tab, PO, l de 100 MG 19:24: BID, # 60 Her fried[facility] Oral Tablet 00 tab, 0 [Wellbutrin Refill(s) ] Bupropion 2020-04 Yes 100 mg = 1 Me mor[facility] Hydrochlori 2-09 tab, PO, l de 100 MG 19:24: BID, # 60 [facility] fried[facility] Oral Tablet 00 tab, 0 [Wellbutrin Refill(s) ] Bupropion 2020-04 Yes 100 mg = 1 Me moria Hydrochlori 2-09 tab, PO, l de 100 MG 19:24: BID, # 60 [facility] fried[facility] Oral Tablet 00 tab, 0 [Wellbutrin Refill(s) ] Bupropion 2020-04 Yes 100 mg = 1 Me moria Hydrochlori 2-09 tab, PO, l de 100 MG 19:24: BID, # 60 Her friedman Oral Tablet 00 tab, 0 [Wellbutrin Refill(s) ] Bupropion 2020-04 Yes 100 mg = 1 Me moria Hydrochlori 2-09 tab, PO, l de 100 MG 19:24: BID, # 60 Her fried[facility] Oral Tablet 00 tab, 0 [Wellbutrin Refill(s) ] Bupropion 2020-04 Yes 100 mg = 1 Me moria Hydrochlori 2-09 tab, PO, l de 100 MG 19:24: BID, # 60 Her fried[facility] Oral Tablet 00 tab, 0 [Wellbutrin Refill(s) ] Bupropion 2020-04 Yes 100 mg = 1 Me mor[facility] Hydrochlori 2-09 tab, PO, l de 100 MG 19:24: BID, # 60 Her fried[facility] Oral Tablet 00 tab, 0 [Wellbutrin Refill(s) ] varenicline 2020-04 No 1mg 0.5 mg 1-05 tablet 00:00: 00 valacyclovi 2020-04 No 1gram r 1 gram 1-05 tablet 00:00: 00 clindamycin 2020-04 No 1mg HCl 150 mg 1-05 capsule 00:00: 00 varenicline 2020-04 No 1mg 0.5 mg 1-05 tablet 00:00: 00 valacyclovi 2020-04 No 1gram r 1 gram 1-05 tablet 00:00: 00 clindamycin 2020-04 No 1mg HCl 150 mg 1-05 capsule 00:00: 00 varenicline 2020-04 No 1mg 0.5 mg 1-05 tablet 00:00: 00 valacyclovi 2020-04 No 1gram r 1 gram 1-05 tablet 00:00: 00 clindamycin 2020-04 No 1mg HCl 150 mg 1-05 capsule 00:00: 00 nicotine 0 No 1mg (polacrilex 9-17 ) 4 mg 00:00: buccal 00 lozenge nicotine 2021-0 No 1mg (polacrilex 9-17 ) 4 mg 00:00: buccal 00 lozenge nicotine 1-0 No 1mg (polacrilex 9-17 ) 4 mg 00:00: buccal 00 lozenge ibuprofen 2020-0 No 1mg 800 mg 8-26 tablet 00:00: 00 valacyclovi 2021-0 No 1gram r 1 gram 8-26 tablet 00:00: 00 ibuprofen 2021-0 No 1mg 800 mg 8-26 tablet 00:00: 00 valacyclovi 2021-0 No 1gram r 1 gram 8-26 tablet 00:00: 00 ibuprofen 1-0 No 1mg 800 mg 8-26 tablet 00:00: 00 valacyclovi 2021-0 No 1gram r 1 gram 8-26 tablet 00:00: 00 topiramate 2020-0 Yes See [facility] 200 mg oral 6-28 Instructio l tablet 13:26: ns, TAKE [facility] 00 ONE (1) TABLET(S) BY MOUTH TWICE A DAY., # 60 ea, 5 Refill(s), Pharmacy: [facility] [id number], 165.1, cm, 07/11/20 13:12:00 CDT, Height, 86.364, kg, 07/11/20 13:12:00 CDT, Weight topiramate 2020-0 Yes See [facility] 200 mg oral 6-28 Instructio l tablet 13:26: ns, TAKE [facility] 00 ONE (1) TABLET(S) BY MOUTH TWICE A DAY., # 60 ea, 5 Refill(s), Pharmacy: [facility] [id number], 165.1, cm, 07/11/20 13:12:00 CDT, Height, 86.364, kg, 07/11/20 13:12:00 CDT, Weight topiramate 2020-0 Yes See [facility] 200 mg oral 6-28 Instructio l tablet 13:26: ns, TAKE [facility] 00 ONE (1) TABLET(S) BY MOUTH TWICE A DAY., # 60 ea, 5 Refill(s), Pharmacy: [facility] [id number], 165.1, cm, 07/11/20 13:12:00 CDT, Height, 86.364, kg, 07/11/20 13:12:00 CDT, Weight topiramate 2021-0 Yes See [facility] 200 mg oral 6-28 Instructio l tablet 13:26: ns, TAKE [facility] 00 ONE (1) TABLET(S) BY MOUTH TWICE A DAY., # 60 ea, 5 Refill(s), Pharmacy: [facility] [id number], 165.1, cm, 07/11/20 13:12:00 CDT, Height, 86.364, kg, 07/11/20 13:12:00 CDT, Weight topiramate 2020-0 Yes See [facility] 200 mg oral 6-28 Instructio l tablet 13:26: ns, TAKE [place] 00 ONE (1) TABLET(S) BY MOUTH TWICE A DAY., # 60 ea, 5 Refill(s), Pharmacy: [facility] [id number], 165.1, cm, 07/11/20 13:12:00 CDT, Height, 86.364, kg, 07/11/20 13:12:00 CDT, Weight topiramate 2020-0 Yes See [facility] 200 mg oral 6-28 Instructio l tablet 13:26: ns, TAKE [place] 00 ONE (1) TABLET(S) BY MOUTH TWICE A DAY., # 60 ea, 5 Refill(s), Pharmacy: [facility] [id number], 165.1, cm, 07/11/20 13:12:00 CDT, Height, 86.364, kg, 07/11/20 13:12:00 CDT, Weight topiramate 2020-0 Yes See [facility] 200 mg oral 6-28 Instructio l tablet 13:26: ns, TAKE [facility] 00 ONE (1) TABLET(S) BY MOUTH TWICE A DAY., # 60 ea, 5 Refill(s), Pharmacy: [facility] [id number], 165.1, cm, 07/11/20 13:12:00 CDT, Height, 86.364, kg, 07/11/20 13:12:00 CDT, Weight topiramate 2020-0 Yes See [facility] 200 mg oral 6-28 Instructio l tablet 13:26: ns, TAKE [facility] 00 ONE (1) TABLET(S) BY MOUTH TWICE A DAY., # 60 ea, 5 Refill(s), Pharmacy: [facility] [id number], 165.1, cm, 07/11/20 13:12:00 CDT, Height, 86.364, kg, 07/11/20 13:12:00 CDT, Weight topiramate 2021-0 Yes See [facility] 200 mg oral 6-28 Instructio l tablet 13:26: ns, TAKE [place] 00 ONE (1) TABLET(S) BY MOUTH TWICE A DAY., # 60 ea, 5 Refill(s), Pharmacy: [facility] [id number], 165.1, cm, 07/11/20 13:12:00 CDT, Height, 86.364, kg, 07/11/20 13:12:00 CDT, Weight topiramate 2021-0 Yes See [facility] 200 mg oral 6-28 Instructio l tablet 13:26: ns, TAKE [facility] 00 ONE (1) TABLET(S) BY MOUTH TWICE A DAY., # 60 ea, 5 Refill(s), Pharmacy: [facility] [id number], 165.1, cm, 07/11/20 13:12:00 CDT, Height, 86.364, kg, 07/11/20 13:12:00 CDT, Weight topiramate 1-0 Yes See [facility] 200 mg oral 6-28 Instructio l tablet 13:26: ns, TAKE [place] 00 ONE (1) TABLET(S) BY MOUTH TWICE A DAY., # 60 ea, 5 Refill(s), Pharmacy: [facility] [id number], 165.1, cm, 07/11/20 13:12:00 CDT, Height, 86.364, kg, 07/11/20 13:12:00 CDT, Weight topiramate 1-0 Yes See [facility] 200 mg oral 6-28 Instructio l tablet 13:26: ns, TAKE [place] 00 ONE (1) TABLET(S) BY MOUTH TWICE A DAY., # 60 ea, 5 Refill(s), Pharmacy: [facility] [id number], 165.1, cm, 07/11/20 13:12:00 CDT, Height, 86.364, kg, 07/11/20 13:12:00 CDT, Weight topiramate 2021-0 Yes See [facility] 200 mg oral 6-28 Instructio l tablet 13:26: ns, TAKE [place] 00 ONE (1) TABLET(S) BY MOUTH TWICE A DAY., # 60 ea, 5 Refill(s), Pharmacy: [id number], 165.1, cm, 07/11/20 13:12:00 CDT, Height, 86.364, kg, 07/11/20 13:12:00 CDT, Weight topiramate 1-0 No 5mg 200 mg 6-28 tablet 00:00: 00 topiramate 2021-0 No 5mg 200 mg 6-28 tablet 00:00: 00 topiramate 2021-0 No 5mg 200 mg 6-28 tablet 00:00: 00 Vraylar 4.5 1-0 No 1mg mg capsule 09-28 00:00: 00 Vraylar 4.5 1-0 No 1mg mg capsule 09-28 00:00: 00 Vraylar 4.5 2020-0 No 1mg mg capsule 09-28 00:00: 00 Dose 1-0 No Unknown 6 00:00: 00 Dose 1-0 No Unknown 616 00:00: 00 Dose 1-0 No Unknown 616 00:00: 00 valacyclovi 2021-0 No gram r 1 gram 6-11 tablet 00:00: 00 valacyclovi 2021-0 No gram r 1 gram 6-11 tablet 00:00: 00 valacyclovi 2021-0 No gram r 1 gram 6-11 tablet 00:00: 00 Vraylar 1.5 2020-0 No 1mg mg capsule 09-16 00:00: 00 Vraylar 1.5 1-0 No 1mg mg capsule 09-16 00:00: 00 Vraylar 1.5 2020-0 No 1mg mg capsule 09-16 00:00: 00 Flovent HFA 1-0 No 2mcg/ac 110 4-17 tuation mcg/actuati 00:00: on aerosol 00 inhaler ProAir HFA 2020-0 No 12mcg/a 90 4-17 ctuatio mcg/actuati 00:00: n on aerosol 00 inhaler Spiriva 1-0 No 1mcg with 4-17 HandiHaler 00:00: 18 mcg and 00 inhalation capsules baclofen 10 2020-0 No 1mg mg tablet 17 00:00: 00 ibuprofen 1-0 No 1mg 800 mg 4-17 tablet 00:00: 00 Flovent HFA 2020-0 No 2mcg/ac 110 4-17 tuation mcg/actuati 00:00: on aerosol 00 inhaler ProAir HFA 2020-0 No 12mcg/a 90 4-17 ctuatio mcg/actuati 00:00: n on aerosol 00 inhaler Spiriva 2020-0 No 1mcg with 4-17 HandiHaler 00:00: 18 mcg and 00 inhalation capsules baclofen 10 2020-0 No 1mg mg tablet 4-17 00:00: 00 ibuprofen 2020-0 No 1mg 800 mg 4-17 tablet 00:00: 00 Flovent HFA 2020-0 No 2mcg/ac 110 4-17 tuation mcg/actuati 00:00: on aerosol 00 inhaler ProAir HFA 2020-0 No 12mcg/a 90 4-17 ctuatio mcg/actuati 00:00: n on aerosol 00 inhaler Spiriva 2020-0 No 1mcg with 4-17 HandiHaler 00:00: 18 mcg and 00 inhalation capsules baclofen 10 2020-0 No 1mg mg tablet -17 00:00: 00 ibuprofen 2020-0 No 1mg 800 mg 4-17 tablet 00:00: 00 Ibuprofen 2020-0 Yes 800 mg, [facility] 3-05 PO, PRN, 0 l 21:59: Refill(s) ibuprofen 2020-0 Yes 800 mg, [facility] 3-05 PO, PRN, 0 l 21:59: Refill(s) Ibuprofen 2020-0 Yes 800 mg, [facility] 3-05 PO, PRN, 0 l 21:59: Refill(s) Ibuprofen 2020-0 Yes 800 mg, [facility] 3-05 PO, PRN, 0 l 21:59: Refill(s) ibuprofen 2020-0 Yes 800 mg, [facility] 3-05 PO, PRN, 0 l 21:59: Refill(s) Ibuprofen 2020-0 Yes 800 mg, [facility] 3-05 PO, PRN, 0 l 21:59: Refill(s) ibuprofen 2020-0 Yes 800 mg, [facility] 3-05 PO, PRN, 0 l 21:59: Refill(s) Ibuprofen 2020-0 Yes 800 mg, [facility] 3-05 PO, PRN, 0 l 21:59: Refill(s) ibuprofen 0 Yes 800 mg, [facility] 3-05 PO, PRN, 0 l 21:59: Refill(s) ibuprofen 0 Yes 800 mg, [facility] 3-05 PO, PRN, 0 l 21:59: Refill(s) Ibuprofen 0 Yes 800 mg, [facility] 3-05 PO, PRN, 0 l 21:59: Refill(s) ibuprofen 0 Yes 800 mg, [facility] 3-05 PO, PRN, 0 l 21:59: Refill(s) Ibuprofen 2020-0 Yes 800 mg, [facility] 3-05 PO, PRN, 0 l 21:59: Refill(s) ibuprofen 0 Yes 800 mg, [facility] 3-05 PO, PRN, 0 l 21:59: Refill(s) Ibuprofen 0 Yes 800 mg, [facility] 3-05 PO, PRN, 0 l 21:59: Refill(s) ibuprofen 2020-0 Yes 800 mg, [facility] 3-05 PO, PRN, 0 l 21:59: Refill(s) Ibuprofen 2020-0 Yes 800 mg, [facility] 3-05 PO, PRN, 0 l 21:59: Refill(s) ibuprofen 2020-0 Yes 800 mg, [facility] 3-05 PO, PRN, 0 l 21:59: Refill(s) Ibuprofen 2020-0 Yes 800 mg, [facility] 3-05 PO, PRN, 0 l 21:59: Refill(s) Ibuprofen 2020-0 Yes 800 mg, Memor ia 3-05 PO, PRN, 0 l 21:59: Refill(s) ibuprofen 2020-0 Yes 800 mg, Memor ia 3-05 PO, PRN, 0 l 21:59: Refill(s) Ibuprofen 2020-0 Yes 800 mg, Memor ia 3-05 PO, PRN, 0 l 21:59: Refill(s) [place] 00 ibuprofen 2020-0 Yes 800 mg, Memor ia 3-05 PO, PRN, 0 l 21:59: Refill(s) [place] Ibuprofen 2020-0 Yes 800 mg, Memor ia 3-05 PO, PRN, 0 l 21:59: Refill(s) [place] 00 topiramate 0 No See Memoria 200 mg oral 2-05 Instructio l tablet 14:22: ns, TAKE Adán 00 ONE (1) TABLET(S) BY MOUTH TWICE A DAY., # 60 ea, 4 Refill(s), Pharmacy: [facility] [id number], 165.1, cm, 04/30/20 9:27:00 SPECIAL NEEDS NANNY, Height, 88.636, kg, 04/30/20 9:27:00 SPECIAL NEEDS NANNY, Weight topiramate 0 No See Mem[facility] 200 mg oral 2-05 Instructio l tablet 14:22: ns, TAKE Adán 00 ONE (1) TABLET(S) BY MOUTH TWICE A DAY., # 60 ea, 4 Refill(s), Pharmacy: [facility] [id number], 165.1, cm, 04/30/20 9:27:00 SPECIAL NEEDS NANNY, Height, 88.636, kg, 04/30/20 9:27:00 SPECIAL NEEDS NANNY, Weight topiramate 0 No See [facility] 200 mg oral 2-05 Instructio l tablet 14:22: ns, TAKE Adán 00 ONE (1) TABLET(S) BY MOUTH TWICE A DAY., # 60 ea, 4 Refill(s), Pharmacy: [facility] [id number], 165.1, cm, 04/30/20 9:27:00 SPECIAL NEEDS NANNY, Height, 88.636, kg, 04/30/20 9:27:00 SPECIAL NEEDS NANNY, Weight topiramate 2020-0 No See [facility] 200 mg oral 2-05 Instructio l tablet 14:22: ns, TAKE [place] 00 ONE (1) TABLET(S) BY MOUTH TWICE A DAY., # 60 ea, 4 Refill(s), Pharmacy: [facility] [id number], 165.1, cm, 04/30/20 9:27:00 SPECIAL NEEDS NANNY, Height, 88.636, kg, 04/30/20 9:27:00 SPECIAL NEEDS NANNY, Weight topiramate 2020-0 No See [facility] 200 mg oral 2-05 Instructio l tablet 14:22: ns, TAKE [place] 00 ONE (1) TABLET(S) BY MOUTH TWICE A DAY., # 60 ea, 4 Refill(s), [facility], 04/30/20 9:27:00 SPECIAL NEEDS NANNY, Height, 88.636, kg, 04/30/20 9:27:00 SPECIAL NEEDS NANNY, Weight topiramate 2020-0 No See Mem[facility] 200 mg oral 2-05 Instructio l tablet 14:22: ns, TAKE [place] 00 ONE (1) TABLET(S) BY MOUTH TWICE A DAY., # 60 ea, 4 Refill(s), [facility], 04/30/20 9:27:00 SPECIAL NEEDS NANNY, Height, 88.636, kg, 04/30/20 9:27:00 SPECIAL NEEDS NANNY, Weight topiramate 2020-0 No See Mem[facility] 200 mg oral 2-05 Instructio l tablet 14:: ns, TAKE [place] 00 ONE (1) TABLET(S) BY MOUTH TWICE A DAY., # 60 ea, 4 [facility]ill(s), [facility], 04/30/20 9:27:00 SPECIAL NEEDS NANNY, Height, 88.636, kg, 04/30/20 9:27:00 SPECIAL NEEDS NANNY, Weight topiramate 2020-0 No See Mem[facility] 200 mg oral 2-05 Instructio l tablet 14:: ns, TAKE Adán 00 ONE (1) TABLET(S) BY MOUTH TWICE A DAY., # 60 ea, 4 Refill(s), [facility], 04/30/20 9:27:00 SPECIAL NEEDS NANNY, Height, 88.636, kg, 04/30/20 9:27:00 SPECIAL NEEDS NANNY, Weight topiramate 2020-0 No See Mem[facility] 200 mg oral 2-05 Instructio l tablet 14:22: ns, TAKE [place] 00 ONE (1) TABLET(S) BY MOUTH TWICE A DAY., # 60 ea, 4 Refill(s), Pharmacy: [facility] [id number], 165.1, cm, 04/30/20 9:27:00 SPECIAL NEEDS NANNY, Height, 88.636, kg, 04/30/20 9:27:00 SPECIAL NEEDS NANNY, Weight topiramate 0 No See Mem[facility] 200 mg oral 2-05 Instructio l tablet 14:22: ns, TAKE [place] 00 ONE (1) TABLET(S) BY MOUTH TWICE A DAY., # 60 ea, 4 Refill(s), Pharmacy: [facility] [id number], 165.1, cm, 04/30/20 9:27:00 SPECIAL NEEDS NANNY, Height, 88.636, kg, 04/30/20 9:27:00 SPECIAL NEEDS NANNY, Weight topiramate 0 No See Mem[facility] 200 mg oral 2-05 Instructio l tablet 14:22: ns, TAKE [place] 00 ONE (1) TABLET(S) BY MOUTH TWICE A DAY., # 60 ea, 4 Refill(s), [facility], [facility], 04/30/20 9:27:00 SPECIAL NEEDS NANNY, Height, 88.636, kg, 04/30/20 9:27:00 SPECIAL NEEDS NANNY, Weight topiramate 0 No See Memoria 200 mg oral 2-05 Instructio l tablet 14:22: ns, TAKE [place] 00 ONE (1) TABLET(S) BY MOUTH TWICE A DAY., # 60 ea, 4 Refill(s), Pharmacy: [facility] [id number], 165.1, cm, 04/30/20 9:27:00 SPECIAL NEEDS NANNY, Height, 88.636, kg, 04/30/20 9:27:00 SPECIAL NEEDS NANNY, Weight topiramate 0 No See Mem[facility] 200 mg oral 2-05 Instructio l tablet 14:22: ns, TAKE [place] 00 ONE (1) TABLET(S) BY MOUTH TWICE A DAY., # 60 ea, 4 Refill(s), Pharmacy: [facility] [id number], 165.1, cm, 04/30/20 9:27:00 SPECIAL NEEDS NANNY, Height, 88.636, kg, 04/30/20 9:27:00 SPECIAL NEEDS NANNY, Weight Flovent HFA 2020-0 No 2mcg/ac 110 1-06 tuation mcg/actuati 00:00: on aerosol 00 inhaler ProAir HFA 0 No 12mcg/a 90 1-06 ctuatio mcg/actuati 00:00: n on aerosol 00 inhaler Spiriva 2020-0 No 1mcg with 1-06 HandiHaler 00:00: 18 mcg and 00 inhalation capsules valacyclovi 2020-0 No 1gram r 1 gram 1-06 tablet 00:00: 00 Flovent HFA 2020-0 No 2mcg/ac 110 1-06 tuation mcg/actuati 00:00: on aerosol 00 inhaler ProAir HFA 2020-0 No 12mcg/a 90 1-06 ctuatio mcg/actuati 00:00: n on aerosol 00 inhaler Spiriva 2020-0 No 1mcg with 1-06 HandiHaler 00:00: 18 mcg and 00 inhalation capsules valacyclovi 2020-0 No 1gram r 1 gram 1-06 tablet 00:00: 00 Flovent HFA 2020-0 No 2mcg/ac 110 1-06 tuation mcg/actuati 00:00: on aerosol 00 inhaler ProAir HFA 2020-0 No 12mcg/a 90 1-06 ctuatio mcg/actuati 00:00: n on aerosol 00 inhaler Spiriva 2020-0 No 1mcg with 1-06 HandiHaler 00:00: 18 mcg and 00 inhalation capsules valacyclovi 2020-0 No 1gram r 1 gram 1-06 tablet 00:00: 00 topiramate 2019-1 Yes 200 mg = 1 M emoria 200 mg oral 0-23 tab, PO, l tablet 19:51: BID, # 60 Arturo n 00 tab, 3 Refill(s), Pharmacy: [facility] [place], 165.1, cm, 02/02/20 14:00:00 CDT, Height, 86.364, kg, 02/02/20 14:00:00 CDT, Weight topiramate 2019-1 Yes 200 mg = 1 M emoria 200 mg oral 0-23 tab, PO, l tablet 19:51: BID, # 60 Arturo n 00 tab, 3 Refill(s), Pharmacy: [facility], 165.1, cm, 02/02/20 14:00:00 CDT, Height, 86.364, kg, 02/02/20 14:00:00 CDT, Weight topiramate 2019- Yes 200 mg = 1 M emoria 200 mg oral 0-23 tab, PO, l tablet 19:51: BID, # 60 Arturo n 00 tab, 3 Refill(s), Pharmacy: [facility], 165.1, cm, 02/02/20 14:00:00 CDT, Height, 86.364, kg, 02/02/20 14:00:00 CDT, Weight topiramate 2019- Yes 200 mg = 1 M emoria 200 mg oral 0-23 tab, PO, l tablet 19:51: BID, # 60 Arturo n 00 tab, 3 Refill(s), Pharmacy: [facility], 165.1, cm, 02/02/20 14:00:00 CDT, Height, 86.364, kg, 02/02/20 14:00:00 CDT, Weight topiramate 2019- Yes 200 mg = 1 M emoria 200 mg oral 0-23 tab, PO, l tablet 19:51: BID, # 60 Arturo n 00 tab, 3 Refill(s), Pharmacy: [facility], 165.1, cm, 02/02/20 14:00:00 CDT, Height, 86.364, kg, 02/02/20 14:00:00 CDT, Weight topiramate 2019- Yes 200 mg = 1 M emoria 200 mg oral 0-23 tab, PO, l tablet 19:51: BID, # 60 Arturo n 00 tab, 3 Refill(s), Pharmacy: [facility], 165.1, cm, 02/02/20 14:00:00 CDT, Height, 86.364, kg, 02/02/20 14:00:00 CDT, Weight topiramate 2019- Yes 200 mg = 1 M emoria 200 mg oral 0-23 tab, PO, l tablet 19:51: BID, # 60 Arturo n 00 tab, 3 Refill(s), Pharmacy: [facility], 165.1, cm, 02/02/20 14:00:00 CDT, Height, 86.364, kg, 02/02/20 14:00:00 CDT, Weight topiramate 2019-1 Yes 200 mg = 1 M emoria 200 mg oral 0-23 tab, PO, l tablet 19:51: BID, # 60 Arturo n 00 tab, 3 Refill(s), Pharmacy: [facility], 165.1, cm, 02/02/20 14:00:00 CDT, Height, 86.364, kg, 02/02/20 14:00:00 CDT, Weight topiramate 2019- Yes 200 mg = 1 M emoria 200 mg oral 0-23 tab, PO, l tablet 19:51: BID, # 60 Arturo n 00 tab, 3 Refill(s), Pharmacy: [facility], 165.1, cm, 02/02/20 14:00:00 CDT, Height, 86.364, kg, 02/02/20 14:00:00 CDT, Weight topiramate 2019- Yes 200 mg = 1 M emoria 200 mg oral 0-23 tab, PO, l tablet 19:51: BID, # 60 Arturo n 00 tab, 3 Refill(s), Pharmacy: [facility], 165.1, cm, 02/02/20 14:00:00 CDT, Height, 86.364, kg, 02/02/20 14:00:00 CDT, Weight topiramate 2019- Yes 200 mg = 1 M emoria 200 mg oral 0-23 tab, PO, l tablet 19:51: BID, # 60 Arturo n 00 tab, 3 Refill(s), Pharmacy: [facility], 165.1, cm, 02/02/20 14:00:00 CDT, Height, 86.364, kg, 02/02/20 14:00:00 CDT, Weight topiramate 2019- Yes 200 mg = 1 M emoria 200 mg oral 0-23 tab, PO, l tablet 19:51: BID, # 60 Arturo n 00 tab, 3 Refill(s), Pharmacy: [facility], 165.1, cm, 02/02/20 14:00:00 CDT, Height, 86.364, kg, 02/02/20 14:00:00 CDT, Weight topiramate 2019- Yes 200 mg = 1 M emoria 200 mg oral 0-23 tab, PO, l tablet 19:51: BID, # 60 Arturo n 00 tab, 3 Refill(s), Pharmacy: [facility] [place], 165.1, cm, 02/02/20 14:00:00 CDT, Height, 86.364, kg, 02/02/20 14:00:00 CDT, Weight Prazosin 2019-04 Yes See Memoria 0-23 Instructio l 19:05: ns, 1mg 4 [place]án 00 times @ night, 0 Refill(s) Trintellix 2019-04 Yes 20 mg, PO, M emoria 0-23 Daily, 0 l 19:05: Refill(s) [place] 00 Vraylar 2019-04 Yes 4.5 mg, Memoria 0-23 PO, l 19:05: Bedtime, 0 [place]án 00 Refill(s) valacyclovi 2019-04 Yes 1 gm, PO, M emoria r 0-23 QAM, # 21 l 19:05: tab, 0 [place] 00 Refill(s) Carbamazepi 2019-04 Yes 100 mg, Mem oria ne 0-23 PO, BID, 0 l 19:05: Refill(s) [place] 00 topiramate 2019-04 No 100 mg, Trell hany 0-23 PO, BID, 0 l 19:05: Refill(s) [place] 00 prazosin 2019-04 Yes See Memoria 0-23 Instructio l 19:05: ns, 1mg [place] 00 qhs, 0 Refill(s) Vraylar 2019-04 Yes 4.5 mg, Memoria 0-23 PO, l 19:05: Bedtime, 0 [place] 00 Refill(s) carBAMazepi 2019-04 Yes 200 mg, Mem oria ne 0-23 PO, BID, 0 l 19:05: Refill(s) [place] 00 Prazosin 2019-04 Yes See Memoria 0-23 Instructio l 19:05: ns, 1mg 4 [place] 00 times @ night, 0 Refill(s) Trintellix 2019-04 Yes 20 mg, PO, M emoria 0-23 Daily, 0 l 19:05: Refill(s) [place] 00 Vraylar 2019-04 Yes 4.5 mg, Memoria 0-23 PO, l 19:05: Bedtime, 0 [place] 00 Refill(s) valacyclovi 2019-04 Yes 1 gm, PO, M emoria r 0-23 QAM, # 21 l 19:05: tab, 0 [place] 00 Refill(s) Carbamazepi 2019-04 Yes 100 mg, Mem oria ne 0-23 PO, BID, 0 l 19:05: Refill(s) topiramate 2019-04 No 100 mg, Tre[place] 0-23 PO, BID, 0 l 19:05: Refill(s) Prazosin 2019-04 Yes See Memoria 0-23 Instructio l 19:05: ns, 1mg 4 [place] 00 times @ night, 0 Refill(s) Trintellix 2019-04 Yes 20 mg, PO, M emoria 0-23 Daily, 0 l 19:05: Refill(s) Vraylar 2019-04 Yes 4.5 mg, Memoria 0-23 PO, l 19:05: Bedtime, 0 [place] 00 Refill(s) valacyclovi 2019-04 Yes 1 gm, PO, M emoria r 0-23 QAM, # 21 l 19:05: tab, 0 [place] 00 Refill(s) Carbamazepi 2019-04 Yes 100 mg, Mem oria ne 0-23 PO, BID, 0 l 19:05: Refill(s) topiramate 2019-04 No 100 mg, [place] 0-23 PO, BID, 0 l 19:05: Refill(s) prazosin 2019-04 Yes See Memoria 0-23 Instructio l 19:05: ns, 1mg [place] 00 qhs, 0 Refill(s) Vraylar 2019-04 Yes 4.5 mg, Memoria 0-23 PO, l 19:05: Bedtime, 0 [place] 00 Refill(s) carBAMazepi 2019-04 Yes 200 mg, Mem oria ne 0-23 PO, BID, 0 l 19:05: Refill(s) [place] 00 Prazosin 2019-04 Yes See Memoria 0-23 Instructio l 19:05: ns, 1mg 4 [place] 00 times @ night, 0 Refill(s) Trintellix 2019-04 Yes 20 mg, PO, M emoria 0-23 Daily, 0 l 19:05: Refill(s) [place] 00 Vraylar 2019-04 Yes 4.5 mg, Memoria 0-23 PO, l 19:05: Bedtime, 0 [place] 00 Refill(s) valacyclovi 2019-04 Yes 1 gm, PO, M emoria r 0-23 QAM, # 21 l 19:05: tab, 0 [place] 00 Refill(s) Carbamazepi 2019-04 Yes 100 mg, Mem oria ne 0-23 PO, BID, 0 l 19:05: Refill(s) [place] 00 topiramate 2019-04 No 100 mg, [place] 0-23 PO, BID, 0 l 19:05: Refill(s) prazosin 2019-04 Yes See Memoria 0-23 Instructio l 19:05: ns, 1mg [place] 00 qhs, 0 Refill(s) Vraylar 2019-04 Yes 4.5 mg, Memoria 0-23 PO, l 19:05: Bedtime, 0 [place] 00 Refill(s) carBAMazepi 2019-04 Yes 200 mg, Mem oria ne 0-23 PO, BID, 0 l 19:05: Refill(s) Prazosin 2019-04 Yes See Memoria 0-23 Instructio l 19:05: ns, 1mg 4 [place] 00 times @ night, 0 Refill(s) Trintellix 2019-04 Yes 20 mg, PO, M emoria 0-23 Daily, 0 l 19:05: Refill(s) Vraylar 2019-04 Yes 4.5 mg, Memoria 0-23 PO, l 19:05: Bedtime, 0 [place] 00 Refill(s) valacyclovi 2019-04 Yes 1 gm, PO, M emoria r 0-23 QAM, # 21 l 19:05: tab, 0 [place] 00 Refill(s) Carbamazepi 2019-04 Yes 100 mg, Mem oria ne 0-23 PO, BID, 0 l 19:05: Refill(s) topiramate 2019-04 No 100 mg, [place] 0-23 PO, BID, 0 l 19:05: Refill(s) [place] 00 prazosin 2019-04 Yes See Memoria 0-23 Instructio l 19:05: ns, 1mg [place] 00 qhs, 0 Refill(s) Vraylar 2019-04 Yes 4.5 mg, Memoria 0-23 PO, l 19:05: Bedtime, 0 [place] 00 Refill(s) carBAMazepi 2019-04 Yes 200 mg, Mem oria ne 0-23 PO, BID, 0 l 19:05: Refill(s) [place] 00 Prazosin 2019-04 Yes See Memoria 0-23 Instructio l 19:05: ns, 1mg 4 [place] 00 times @ night, 0 Refill(s) Trintellix 2019-04 Yes 20 mg, PO, M emoria 0-23 Daily, 0 l 19:05: Refill(s) [place] 00 Vraylar 2019-04 Yes 4.5 mg, Memoria 0-23 PO, l 19:05: Bedtime, 0 [place] 00 Refill(s) valacyclovi 2019-04 Yes 1 gm, PO, M emoria r 0-23 QAM, # 21 l 19:05: tab, 0 [place] 00 Refill(s) Carbamazepi 2019-04 Yes 100 mg, Mem oria ne 0-23 PO, BID, 0 l 19:05: Refill(s) [place] 00 topiramate 2019-04 No 100 mg, [place] 0-23 PO, BID, 0 l 19:05: Refill(s) [place] 00 prazosin 2019-04 Yes See Memoria 0-23 Instructio l 19:05: ns, 1mg [place] 00 qhs, 0 Refill(s) Vraylar 2019-04 Yes 4.5 mg, Memoria 0-23 PO, l 19:05: Bedtime, 0 [place] 00 Refill(s) carBAMazepi 2019-04 Yes 200 mg, Mem oria ne 0-23 PO, BID, 0 l 19:05: Refill(s) [place] 00 Prazosin 2019-04 Yes See Memoria 0-23 Instructio l 19:05: ns, 1mg 4 [place] 00 times @ night, 0 Refill(s) Trintellix 2019-04 Yes 20 mg, PO, M emoria 0-23 Daily, 0 l 19:05: Refill(s) [place] 00 Vraylar 2019-04 Yes 4.5 mg, Memoria 0-23 PO, l 19:05: Bedtime, 0 [place] 00 Refill(s) valacyclovi 2019-04 Yes 1 gm, PO, M emoria r 0-23 QAM, # 21 l 19:05: tab, 0 [place] 00 Refill(s) Carbamazepi 2019-04 Yes 100 mg, Mem oria ne 0-23 PO, BID, 0 l 19:05: Refill(s) topiramate 2019-04 No 100 mg, [place] 0-23 PO, BID, 0 l 19:05: Refill(s) prazosin 2019-04 Yes See Memoria 0-23 Instructio l 19:05: ns, 1mg [place] 00 qhs, 0 Refill(s) Vraylar 2019-04 Yes 4.5 mg, Memoria 0-23 PO, l 19:05: Bedtime, 0 [place] 00 Refill(s) carBAMazepi 2019-04 Yes 200 mg, Mem oria ne 0-23 PO, BID, 0 l 19:05: Refill(s) Prazosin 2019-04 Yes See Memoria 0-23 Instructio l 19:05: ns, 1mg 4 [place] 00 times @ night, 0 Refill(s) Trintellix 2019-04 Yes 20 mg, PO, M emoria 0-23 Daily, 0 l 19:05: Refill(s) Vraylar 2019-04 Yes 4.5 mg, Memoria 0-23 PO, l 19:05: Bedtime, 0 [place] 00 Refill(s) valacyclovi 2019-04 Yes 1 gm, PO, M emoria r 0-23 QAM, # 21 l 19:05: tab, 0 [place] 00 Refill(s) Carbamazepi 2019-04 Yes 100 mg, Mem oria ne 0-23 PO, BID, 0 l 19:05: Refill(s) topiramate 2019-04 No 100 mg, [place] 0-23 PO, BID, 0 l 19:05: Refill(s) prazosin 2019-04 Yes See Memoria 0-23 Instructio l 19:05: ns, 1mg [place] 00 qhs, 0 Refill(s) Vraylar 2019-04 Yes 4.5 mg, Memoria 0-23 PO, l 19:05: Bedtime, 0 Refill(s) carBAMazepi 2019-04 Yes 200 mg, Mem oria ne 0-23 PO, BID, 0 l 19:05: Refill(s) Prazosin 2019-04 Yes See Memoria 0-23 Instructio l 19:05: ns, 1mg 4 [place] 00 times @ night, 0 Refill(s) Trintellix 2019-04 Yes 20 mg, PO, M emoria 0-23 Daily, 0 l 19:05: Refill(s) Vraylar 2019-04 Yes 4.5 mg, Memoria 0-23 PO, l 19:05: Bedtime, 0 Refill(s) valacyclovi 2019-04 Yes 1 gm, PO, M emoria r 0-23 QAM, # 21 l 19:05: tab, 0 Refill(s) Carbamazepi 2019-04 Yes 100 mg, Mem oria ne 0-23 PO, BID, 0 l 19:05: Refill(s) topiramate 2019-04 No 100 mg, Tre[place] 0-23 PO, BID, 0 l 19:05: Refill(s) prazosin 2019-04 Yes See Memoria 0-23 Instructio l 19:05: ns, 1mg [place] 00 qhs, 0 Refill(s) Vraylar 2019-04 Yes 4.5 mg, Memoria 0-23 PO, l 19:05: Bedtime, 0 Refill(s) carBAMazepi 2019-04 Yes 200 mg, Mem oria ne 0-23 PO, BID, 0 l 19:05: Refill(s) Prazosin 2019-04 Yes See Memoria 0-23 Instructio l 19:05: ns, 1mg 4 [place] 00 times @ night, 0 Refill(s) Trintellix 2019-04 Yes 20 mg, PO, M emoria 0-23 Daily, 0 l 19:05: Refill(s) Vraylar 2019-04 Yes 4.5 mg, Memoria 0-23 PO, l 19:05: Bedtime, 0 [place] 00 Refill(s) valacyclovi 2019-04 Yes 1 gm, PO, M emoria r 0-23 QAM, # 21 l 19:05: tab, 0 [place] 00 Refill(s) Carbamazepi 2019-04 Yes 100 mg, Mem oria ne 0-23 PO, BID, 0 l 19:05: Refill(s) [place] 00 topiramate 2019-04 No 100 mg, [place] 0-23 PO, BID, 0 l 19:05: Refill(s) [place] 00 prazosin 2019-04 Yes See Memoria 0-23 Instructio l 19:05: ns, 1mg [place] 00 qhs, 0 Refill(s) Vraylar 2019-04 Yes 4.5 mg, Memoria 0-23 PO, l 19:05: Bedtime, 0 [place] 00 Refill(s) carBAMazepi 2019-04 Yes 200 mg, Mem oria ne 0-23 PO, BID, 0 l 19:05: Refill(s) [place] 00 Prazosin 2019-04 Yes See Memoria 0-23 Instructio l 19:05: ns, 1mg 4 [place] 00 times @ night, 0 Refill(s) Trintellix 2019-04 Yes 20 mg, PO, M emoria 0-23 Daily, 0 l 19:05: Refill(s) [place] 00 Vraylar 2019-04 Yes 4.5 mg, Memoria 0-23 PO, l 19:05: Bedtime, 0 [place] 00 Refill(s) valacyclovi 2019-04 Yes 1 gm, PO, M emoria r 0-23 QAM, # 21 l 19:05: tab, 0 [place] 00 Refill(s) Carbamazepi 2019-04 Yes 100 mg, Mem oria ne 0-23 PO, BID, 0 l 19:05: Refill(s) [place] 00 topiramate 2019-04 No 100 mg, Tre[place] 0-23 PO, BID, 0 l 19:05: Refill(s) [place] 00 prazosin 2019-04 Yes See Memoria 0-23 Instructio l 19:05: ns, 1mg [place] 00 qhs, 0 Refill(s) Vraylar 2019-04 Yes 4.5 mg, Memoria 0-23 PO, l 19:05: Bedtime, 0 [place] 00 Refill(s) carBAMazepi 2019-04 Yes 200 mg, Mem oria ne 0-23 PO, BID, 0 l 19:05: Refill(s) [place] 00 Prazosin 2019-04 Yes See Memoria 0-23 Instructio l 19:05: ns, 1mg 4 [place] 00 times @ night, 0 Refill(s) Trintellix 2019-04 Yes 20 mg, PO, M emoria 0-23 Daily, 0 l 19:05: Refill(s) Vraylar 2019-04 Yes 4.5 mg, Memoria 0-23 PO, l 19:05: Bedtime, 0 [place] 00 Refill(s) valacyclovi 2019-04 Yes 1 gm, PO, M emoria r 0-23 QAM, # 21 l 19:05: tab, 0 Refill(s) Carbamazepi 2019-04 Yes 100 mg, Mem oria ne 0-23 PO, BID, 0 l 19:05: Refill(s) topiramate 2019-04 No 100 mg, Tre[place] 0-23 PO, BID, 0 l 19:05: Refill(s) prazosin 2019-04 Yes See Memoria 0-23 Instructio l 19:05: ns, 1mg [place] 00 qhs, 0 Refill(s) Vraylar 2019-04 Yes 4.5 mg, Memoria 0-23 PO, l 19:05: Bedtime, 0 Refill(s) carBAMazepi 2019-04 Yes 200 mg, Mem oria ne 0-23 PO, BID, 0 l 19:05: Refill(s) Prazosin 2019-04 Yes See Memoria 0-23 Instructio l 19:05: ns, 1mg 4 [place] 00 times @ night, 0 Refill(s) Trintellix 2019-04 Yes 20 mg, PO, M emoria 0-23 Daily, 0 l 19:05: Refill(s) Vraylar 2019-04 Yes 4.5 mg, Memoria 0-23 PO, l 19:05: Bedtime, 0 [place] 00 Refill(s) valacyclovi 2019-04 Yes 1 gm, PO, M emoria r 0-23 QAM, # 21 l 19:05: tab, 0 Refill(s) Carbamazepi 2019-04 Yes 100 mg, Mem oria ne 0-23 PO, BID, 0 l 19:05: Refill(s) topiramate 2019-04 No 100 mg, Tre[place] 0-23 PO, BID, 0 l 19:05: Refill(s) valacyclovi 2019-04 No 1gram r 1 gram 0-21 tablet 00:00: 00 valacyclovi 2019- No 1gram r 1 gram 0-21 tablet 00:00: 00 valacyclovi 2019- No 1gram r 1 gram 0-21 tablet 00:00: 00 carbamazepi 2019- No 5mg ne 200 mg 0-03 tablet 00:00: 00 prazosin 1 2019-04 No 4mg mg capsule 0-03 00:00: 00 carbamazepi 2019- No 5mg ne 200 mg 0-03 tablet 00:00: 00 prazosin 1 2019-04 No 4mg mg capsule 0-03 00:00: 00 carbamazepi 2019-04 No 5mg ne 200 mg 0-03 tablet 00:00: 00 prazosin 1 2019- No 4mg mg capsule 0-03 00:00: 00 Flovent HFA 2020-0 No 2mcg/ac 110 9-11 tuation mcg/actuati 00:00: on aerosol 00 inhaler ProAir HFA 2020-0 No 12mcg/a 90 9-11 ctuatio mcg/actuati 00:00: n on aerosol 00 inhaler Spiriva 2020-0 No 1mcg with 9-11 HandiHaler 00:00: 18 mcg and 00 inhalation capsules topiramate 2019-0 No 1mg 100 mg 9-11 tablet 00:00: 00 Flovent HFA 2020-0 No 2mcg/ac 110 9-11 tuation mcg/actuati 00:00: on aerosol 00 inhaler ProAir HFA 2020-0 No 12mcg/a 90 9-11 ctuatio mcg/actuati 00:00: n on aerosol 00 inhaler Spiriva 2020-0 No 1mcg with 9-11 HandiHaler 00:00: 18 mcg and 00 inhalation capsules topiramate 2020-0 No 1mg 100 mg 9-11 tablet 00:00: 00 Flovent HFA 2020-0 No 2mcg/ac 110 9-11 tuation mcg/actuati 00:00: on aerosol 00 inhaler ProAir HFA 2020-0 No 12mcg/a 90 9-11 ctuatio mcg/actuati 00:00: n on aerosol 00 inhaler Spiriva 2020-0 No 1mcg with 9-11 HandiHaler 00:00: 18 mcg and 00 inhalation capsules topiramate 2020-0 No 1mg 100 mg 9-11 tablet 00:00: 00 valacyclovi 2020-0 No 1gram r 1 gram 8-24 tablet 00:00: 00 Vraylar 4.5 2020-0 No 1mg mg capsule 824 00:00: 00 valacyclovi 2020-0 No 1gram r 1 gram 8-24 tablet 00:00: 00 Vraylar 4.5 2020-0 No 1mg mg capsule 824 00:00: 00 Vraylar 1.5 2020-0 No 1mg mg capsule 824 00:00: 00 Vraylar 1.5 2020-0 No 1mg mg capsule 824 00:00: 00 valacyclovi 2020-0 No 1gram r 1 gram 8-24 tablet 00:00: 00 Vraylar 4.5 2020-0 No 1mg mg capsule 824 00:00: 00 Vraylar 1.5 2020-0 No 1mg mg capsule 824 00:00: 00 Flovent HFA 2020-0 No 2mcg/ac 110 7-31 tuation mcg/actuati 00:00: on aerosol 00 inhaler Flovent HFA 2020-0 No 2mcg/ac 110 7-31 tuation mcg/actuati 00:00: on aerosol 00 inhaler prednisone 2020-0 No 1mg 20 mg 7-31 tablet 00:00: 00 Flovent HFA 2020-0 No 2mcg/ac 110 7-31 tuation mcg/actuati 00:00: on aerosol 00 inhaler Flovent HFA 2020-0 No 2mcg/ac 110 7-31 tuation mcg/actuati 00:00: on aerosol 00 inhaler prednisone 2020-0 No 1mg 20 mg 7-31 tablet 00:00: 00 Flovent HFA 2020-0 No 2mcg/ac 110 7-31 tuation mcg/actuati 00:00: on aerosol 00 inhaler Flovent HFA 2020-0 No 2mcg/ac 110 7-31 tuation mcg/actuati 00:00: on aerosol 00 inhaler prednisone 2020-0 No 1mg 20 mg 7-31 tablet 00:00: 00 ProAir HFA 2020-0 No 12mcg/a 90 7-10 ctuatio mcg/actuati 00:00: n on aerosol 00 inhaler Spiriva 2020-0 No 1mcg with 7-10 HandiHaler 00:00: 18 mcg and 00 inhalation capsules carbamazepi 2020-0 No 5mg ne 200 mg 7-10 tablet 00:00: 00 ibuprofen 2020-0 No 1mg 800 mg 7-10 tablet 00:00: 00 Flagyl 500 2020-0 No 1mg mg tablet 7-10 00:00: 00 Vraylar 3 2020-0 No 1mg mg capsule 7-10 00:00: 00 prazosin 1 2020-0 No 4mg mg capsule 7-10 00:00: 00 ProAir HFA 2020-0 No 12mcg/a 90 7-10 ctuatio mcg/actuati 00:00: n on aerosol 00 inhaler Spiriva 2020-0 No 1mcg with 7-10 HandiHaler 00:00: 18 mcg and 00 inhalation capsules carbamazepi 2020-0 No 5mg ne 200 mg 7-10 tablet 00:00: 00 ibuprofen 2020-0 No 1mg 800 mg 7-10 tablet 00:00: 00 Flagyl 500 2020-0 No 1mg mg tablet 7-10 00:00: 00 Vraylar 3 2020-0 No 1mg mg capsule 7-10 00:00: 00 prazosin 1 2020-0 No 4mg mg capsule 7-10 00:00: 00 ProAir HFA 2020-0 No 12mcg/a 90 7-10 ctuatio mcg/actuati 00:00: n on aerosol 00 inhaler Spiriva 2020-0 No 1mcg with 7-10 HandiHaler 00:00: 18 mcg and 00 inhalation capsules carbamazepi 2020-0 No 5mg ne 200 mg 7-10 tablet 00:00: 00 ibuprofen 2020-0 No 1mg 800 mg 7-10 tablet 00:00: 00 Flagyl 500 2020-0 No 1mg mg tablet 7-10 00:00: 00 Vraylar 3 2020-0 No 1mg mg capsule 7-10 00:00: 00 prazosin 1 2020-0 No 4mg mg capsule 7-10 00:00: 00 ibuprofen 2020-0 No 1mg 800 mg 6-11 tablet 00:00: 00 clindamycin 2020-0 No 2mg HCl 300 mg 6-11 capsule 00:00: 00 ibuprofen 2020-0 No 1mg 800 mg 6-11 tablet 00:00: 00 clindamycin 2020-0 No 2mg HCl 300 mg 6-11 capsule 00:00: 00 ibuprofen 2020-0 No 1mg 800 mg 6-11 tablet 00:00: 00 clindamycin 2020-0 No 2mg HCl 300 mg 6-11 capsule 00:00: 00 carbamazepi 2020-0 No 1mg ne ER 200 5-29 mg 00:00: capsule,ext 00 ended release [id number] Vraylar 3 2020-0 No 1mg mg capsule 5-29 00:00: 00 prazosin 1 2020-0 No 1mg mg capsule 5-29 00:00: 00 Spiriva 2020-0 No 1mcg with 5-29 HandiHaler 00:00: 18 mcg and 00 inhalation capsules ProAir HFA 2020-0 No 12mcg/a 90 5-29 ctuatio mcg/actuati 00:00: n on aerosol 00 inhaler Trintellix 2020-0 No 1mg 20 mg 5-29 tablet 00:00: 00 topiramate 2020-0 No 1mg 100 mg 5-29 tablet 00:00: 00 topiramate 2020-0 No 1mg 100 mg 5-29 tablet 00:00: 00 valacyclovi 2020-0 No 1gram r 1 gram 5-29 tablet 00:00: 00 valacyclovi 2020-0 No 1gram r 1 gram 5-29 tablet 00:00: 00 carbamazepi 2020-0 No 1mg ne ER 200 5-29 mg 00:00: capsule,ext 00 ended release [id number] Vraylar 3 2020-0 No 1mg mg capsule 5-29 00:00: 00 prazosin 1 2020-0 No 1mg mg capsule 5-29 00:00: 00 Spiriva 2020-0 No 1mcg with 5-29 HandiHaler 00:00: 18 mcg and 00 inhalation capsules ProAir HFA 2020-0 No 12mcg/a 90 5-29 ctuatio mcg/actuati 00:00: n on aerosol 00 inhaler ProAir HFA 2020-0 No 12mcg/a 90 5-29 ctuatio mcg/actuati 00:00: n on aerosol 00 inhaler Trintellix 2020-0 No 1mg 20 mg 5-29 tablet 00:00: 00 topiramate 2020-0 No 1mg 100 mg 5-29 tablet 00:00: 00 topiramate 2020-0 No 1mg 100 mg 5-29 tablet 00:00: 00 valacyclovi 2020-0 No 1gram r 1 gram 5-29 tablet 00:00: 00 valacyclovi 2020-0 No 1gram r 1 gram 5-29 tablet 00:00: 00 carbamazepi 2020-0 No 1mg ne ER 200 5-29 mg 00:00: capsule,ext 00 ended release kyivyv84ci Vraylar 3 2020-0 No 1mg mg capsule 5-29 00:00: 00 prazosin 1 2020-0 No 1mg mg capsule 5-29 00:00: 00 Spiriva 2020-0 No 1mcg with 5-29 HandiHaler 00:00: 18 mcg and 00 inhalation capsules Trintellix 2020-0 No 1mg 20 mg 5-29 tablet 00:00: 00 topiramate 2020-0 No 1mg 100 mg 5-29 tablet 00:00: 00 topiramate 2020-0 No 1mg 100 mg 5-29 tablet 00:00: 00 valacyclovi 2020-0 No 1gram r 1 gram 5-29 tablet 00:00: 00 valacyclovi 2020-0 No 1gram r 1 gram 5-29 tablet 00:00: 00 Immunizations Ordered Immunization Filled Immunization Date Status Commen ts Source Name Name Influenza, injectable 2020-10-07 Completed 00:00:00 Tdap 2020-10-07 Completed 00:00:00 Influenza, injectable 2020-10-07 Completed 00:00:00 Tdap 2020-10-07 Completed 00:00:00 Influenza, injectable 2020-10-07 Completed 00:00:00 Tdap 2020-10-07 Completed 00:00:00 Vital Signs Vital Name Observation Time Observation Value Comments Source Systolic blood 2022-09-08 14:00:00 145 mm[Hg] [facility] Diastolic blood 2022-09-08 14:00:00 55 mm[Hg] [facility] Heart rate 2022-09-08 14:00:00 52 /min [facility] Respiratory rate 2022-09-08 14:00:00 19 /min [facility] Oxygen saturation in 2022-09-08 14:00:00 97 /min [facility] of Arterial blood by [facility] Pulse oximetry Branch Body temperature 2022-09-08 12:34:00 36.22 Della [facility] Body height 2022-09-08 12:34:00 162.6 cm [facility] Body weight 2022-09-08 12:34:00 87.998 kg [facility] BMI 2022-09-08 12:34:00 33.30 kg/m2 [facility] Systolic blood 2022-09-08 14:00:00 145 mm[Hg] [facility] Diastolic blood 2022-09-08 14:00:00 55 mm[Hg] [facility] Heart rate 2022-09-08 14:00:00 52 /min [facility] Respiratory rate 2022-09-08 14:00:00 19 /min [facility] Oxygen saturation in 2022-09-08 14:00:00 97 /min [facility] Arterial blood by [facility] Pulse oximetry Branch Body temperature 2022-09-08 12:34:00 36.22 Della [facility] Body height 2022-09-08 12:34:00 162.6 cm [facility] Body weight 2022-09-08 12:34:00 87.998 kg [facility] BMI 2022-09-08 12:34:00 33.30 kg/m2 [facility] Systolic blood 2022-08-13 14:26:00 119 mm[Hg] [facility] Diastolic blood 2022-08-13 14:26:00 61 mm[Hg] [facility] Heart rate 2022-08-13 14:26:00 51 /min [facility] Body temperature 2022-08-13 14:26:00 36.44 Della [facility] Body height 2022-08-13 14:26:00 162.6 cm [facility] Body weight 2022-08-13 14:26:00 86.864 kg [facility] BMI 2022-08-13 14:26:00 32.87 kg/m2 [facility] Oxygen saturation in 2022-08-13 14:26:00 95 /min [facility] blood by [place] [employer] chung Pulse oximetry Branch Systolic blood 2022-05-27 21:38:00 117 mm[Hg] [facility] Diastolic blood 2022-05-27 21:38:00 72 mm[Hg] [facility] Heart rate 2022-05-27 21:38:00 63 /min [facility] Body temperature 2022-05-27 21:38:00 36.44 Della [facility] Respiratory rate 2022-05-27 21:38:00 18 /min [facility] Body height 2022-05-27 21:38:00 162.6 cm [facility] Body weight 2022-05-27 21:38:00 87.454 kg [facility] BMI 2022-05-27 21:38:00 33.09 kg/m2 [facility] Oxygen saturation in 2022-05-27 21:38:00 95 /min [facility] Ar[facility]ial blood by [place] [employer] chung Pulse oximetry Branch Systolic blood 2021-10-21 15:50:00 119 mm[Hg] [facility] Diastolic blood 2021-10-21 15:50:00 61 mm[Hg] [facility] Heart rate 2021-10-21 15:50:00 54 /min [facility] Respiratory rate 2021-10-21 15:50:00 20 /min [facility] Body height 2021-10-21 15:50:00 162.6 cm [facility] Body [facility] 2021-10-21 15:50:00 86.637 [facility] BMI 2021-10-21 15:50:00 32.79 kg/m2 [facility] Oxygen saturation in 2021-10-21 15:50:00 93 /min [facility] blood by [facility] Pulse oximetry Branch Systolic (mm Hg) 2022 17:48:00 Trell leachl Adán Diastolic (mm Hg) 2022 17:48:00 Mem orial Adán Heart Rate 2022 17:48:00 [facility] Height 2022 17:48:00 5 [ft_i] [facility] [place] Weight 2022 17:48:00 [facility] [place] BMI Calculated 2022 17:48:00 Geraldo Dewitt BP Systolic 2022-02-24 16:20:00 118 mm[Hg] BP Diastolic 2022-02-24 16:20:00 74 mm[Hg] Weight Measured 2022-02-24 16:20:00 196.40 pounds Height Measured 2022-02-24 16:20:00 65.00 inches Body Temperature 2022-02-24 16:20:00 98.20 degrees Heart Rate 2022-02-24 16:20:00 66.00 /min Respiratory Rate 2022-02-24 16:20:00 17.00 /min BP Systolic 2022-01-13 13:25:00 121 mm[Hg] BP Diastolic 2022-01-13 13:25:00 78 mm[Hg] Weight Measured 2022-01-13 13:25:00 191.20 pounds Height Measured 2022-01-13 13:25:00 65.00 inches Body Temperature 2022-01-13 13:25:00 98.40 degrees Heart Rate 2022-01-13 13:25:00 58.00 /min Respiratory Rate 2022-01-13 13:25:00 Diastolic (mm Hg) 2021-12-25 19:13:00 Mem orial Adán Heart Rate 2021-12-25 19:13:00 [facility] Respitory Rate 2021-12-25 19:13:00 Geraldo al Adán Height 2021-12-25 19:13:00 162.56 cm [facility] [place] Weight 2021-12-25 19:13:00 [facility] BMI Calculated 2021-12-25 19:13:00 Donori al [place] Systolic (mm Hg) 2021-12-25 19:13:00 Trell [facility] [place] BP Systolic 2021-11-29 10:22:00 103 mm[Hg] BP Diastolic 2021-11-29 10:22:00 67 mm[Hg] Weight Measured 2021-11-29 10:22:00 134.20 pounds Height Measured 2021-11-29 10:22:00 65.00 inches Body Temperature 2021-11-29 10:22:00 98.50 degrees Heart Rate 2021-11-29 10:22:00 54.00 /min Respiratory Rate 2021-11-29 10:22:00 Systolic (mm Hg) 2021-11-20 16:08:00 Trell rial [place] Diastolic (mm Hg) 2021-11-20 16:08:00 Mem orial Adán Heart Rate 2021-11-20 16:08:00 [facility] Respitory Rate 2021-11-20 16:08:00 Geraldo al Adán Height 2021-11-20 16:08:00 162.56 cm [facility] Adán Weight 2021-11-20 16:08:00 [facility] [place] BMI Calculated 2021-11-20 16:08:00 Geraldo al Adán BP Systolic 2021-09-20 10:42:00 122 mm[Hg] BP Diastolic 2021-09-20 10:42:00 73 mm[Hg] Weight Measured 2021-09-20 10:42:00 189.00 pounds Height Measured 2021-09-20 10:42:00 65.00 inches Body Temperature 2021-09-20 10:42:00 98.20 degrees Heart Rate 2021-09-20 10:42:00 76.00 /min Respiratory Rate 2021-09-20 10:42:00 18.00 /min Systolic (mm Hg) 2021-07-17 19:19:00 Trell rial Adán Diastolic (mm Hg) 2021-07-17 19:19:00 Mem orial Adán Heart Rate 2021-07-17 19:19:00 [facility] Respitory Rate 2021-07-17 19:19:00 Geraldo Danielsann Height 2021-07-17 19:19:00 162.56 cm [facility] Weight 2021-07-17 19:19:00 [facility] BMI Calculated 2021-07-17 19:19:00 Geraldo Dewitt BP Systolic 2021-07-05 08:53:00 107 mm[Hg] BP Diastolic 2021-07-05 08:53:00 67 mm[Hg] Weight Measured 2021-07-05 08:53:00 189.60 pounds Height Measured 2021-07-05 08:53:00 65.00 inches Body Temperature 2021-07-05 08:53:00 97.90 degrees Heart Rate 2021-07-05 08:53:00 73.00 /min Respiratory Rate 2021-07-05 08:53:00 21.00 /min BP Systolic 2021-04-19 13:44:00 99 mm[Hg] BP Diastolic 2021-04-19 13:44:00 70 mm[Hg] Weight Measured 2021-04-19 13:44:00 189.40 pounds Height Measured 2021-04-19 13:44:00 65.00 inches Body Temperature 2021-04-19 13:44:00 98.20 degrees Heart Rate 2021-04-19 13:44:00 61.00 /min Respiratory Rate 2021-04-19 13:44:00 BP Systolic 2021-03-31 13:25:00 107 mm[Hg] BP Diastolic 2021-03-31 13:25:00 67 mm[Hg] Weight Measured 2021-03-31 13:25:00 192.60 pounds Height Measured 2021-03-31 13:25:00 65.00 inches Body Temperature 2021-03-31 13:25:00 98.10 degrees Heart Rate 2021-03-31 13:25:00 68.00 /min Respiratory Rate 2021-03-31 13:25:00 16.00 /min BP Systolic 2021-03-29 13:58:00 113 mm[Hg] BP Diastolic 2021-03-29 13:58:00 69 mm[Hg] Weight Measured 2021-03-29 13:58:00 192.60 pounds Height Measured 2021-03-29 13:58:00 65.00 inches Body Temperature 2021-03-29 13:58:00 98.10 degrees Heart Rate 2021-03-29 13:58:00 69.00 /min Respiratory Rate 2021-03-29 13:58:00 17.00 /min BP Systolic 2021-02-14 15:14:00 96 mm[Hg] BP Diastolic 2021-02-14 15:14:00 59 mm[Hg] Weight Measured 2021-02-14 15:14:00 196.60 pounds Height Measured 2021-02-14 15:14:00 65.00 inches Body Temperature 2021-02-14 15:14:00 98.40 degrees Heart Rate 2021-02-14 15:14:00 55.00 /min Respiratory Rate 2021-02-14 15:14:00 BP Systolic 2020-12-27 14:15:00 101 mm[Hg] BP Diastolic 2020-12-27 14:15:00 62 mm[Hg] Weight Measured 2020-12-27 14:15:00 190.60 pounds Height Measured 2020-12-27 14:15:00 65.00 inches Body Temperature 2020-12-27 14:15:00 98.60 degrees Heart Rate 2020-12-27 14:15:00 65.00 /min Respiratory Rate 2020-12-27 14:15:00 Systolic (mm Hg) 2020-11-20 18:45:00 Trell tamez Adán Diastolic (mm Hg) 2020-11-20 18:45:[address] [facility] [place] Heart Rate 2020-11-20 18:45:00 [facility] Adán Respitory Rate 2020-11-20 18:45:00 Geraldo Dewitt Height 2020-11-20 18:45:00 167.64 cm [facility] Weight 2020-11-20 18:45:00 [facility] [place] BMI Calculated 2020-11-20 18:45:00 Geraldo Dewitt BP Systolic 2020-10-07 11:03:00 115 mm[Hg] BP Diastolic 2020-10-07 11:03:00 74 mm[Hg] Weight Measured 2020-10-07 11:03:00 188.20 pounds Height Measured 2020-10-07 11:03:00 65.00 inches Body Temperature 2020-10-07 11:03:00 Heart Rate 2020-10-07 11:03:00 55.00 /min Respiratory Rate 2020-10-07 11:03:00 BP Systolic 2020-07-27 13:27:00 127 mm[Hg] BP Diastolic 2020-07-27 13:27:00 76 mm[Hg] Weight Measured 2020-07-27 13:27:00 187.00 pounds Height Measured 2020-07-27 13:27:00 65.00 inches Body Temperature 2020-07-27 13:27:00 97.80 degrees Heart Rate 2020-07-27 13:27:00 67.00 /min Respiratory Rate 2020-07-27 13:27:00 18.00 /min Systolic (mm Hg) 2020-07-11 18:12:00 Trell rial Adán Diastolic (mm Hg) 2020-07-11 18:12:00 Mem [facility] [place] Heart Rate 2020-07-11 18:12:00 [facility] [place] Respitory Rate 2020-07-11 18:12:00 [facility] [place] Height 2020-07-11 18:12:00 165.1 cm [facility] Weight 2020-07-11 18:12:00 [facility] [place] BMI Calculated 2020-07-11 18:12:00 [facility] [place] Systolic (mm Hg) 2020-06-14 21:55:00 Trell rial Adán Diastolic (mm Hg) 2020-06-14 21:55:00 [facility] [place] Heart Rate 2020-06-14 21:55:00 [facility] [place] Respitory Rate 2020-06-14 21:55:00 Mem[facility] [place] Height 2020-06-14 21:55:00 165.1 cm [facility] [place] Weight 2020-06-14 21:55:00 [facility] [place] BMI Calculated 2020-06-14 21:55:00 Mem[facility] [place] Systolic (mm Hg) 2020-03-15 19:13:00 Trell rial [place] Diastolic (mm Hg) 2020-03-15 19:13:00 Mem [facility] [place] Heart Rate 2020-03-15 19:13:00 [facility] [place] Respitory Rate 2020-03-15 19:13:00 [facility] [place] Height 2020-03-15 19:13:00 165.1 cm [facility] [place] Weight 2020-03-15 19:13:00 [facility] BMI Calculated 2020-03-15 19:13:00 Memori al Ad[facility] Systolic (mm Hg) 2020-02-02 19:00:00 Trell rial Adán Diastolic (mm Hg) 2020-02-02 19:00:00 Mem orial Adán Heart Rate 2020-02-02 19:00:00 [facility] Respitory Rate 2020-02-02 19:00:00 [facility] [place] Height 2020-02-02 19:00:00 165.1 cm [facility] Weight 2020-02-02 19:00:00 [facility] BMI Calculated 2020-02-02 19:00:00 Memori al Adán Procedures Procedure Date / Time Performing Clinician Source Performed ELECTROPHYSIOLOGY PROCEDURE 2022-09-08 Emir [facility] 13:21:15 [facility] CONSENT/REFUSAL FOR 2022-09-08 Doctor Unassigned, No [facility] DIAGNOSIS AND TREATMENT 12:18:15 [facility] HB CREATININE SERUM/BLOOD 2022-06-17 Tiffanie Delacruz.H[facility] FOR IMAGING 17:05:00 [facility] PATIENT FINANCIAL 2022-06-17 Doctor Unassigned, No [facility] POLICY 15:11:54 [facility] ASSIGNMENT OF BENEFITS 2022-06-17 Doctor Unassigned, No [facility] 15:11:29 [facility] CONSENT/REFUSAL FOR 2022-06-17 Doctor Unassigned, No [facility] DIAGNOSIS AND TREATMENT 15:11:07 [facility] HB ECG ROUTINE & RHYTHM 2022-05-27 Tiffanie DelacruzH. [facility] STRIP 21:43:16 Medical [facility] REFERRAL- REQUEST/RESPONSE 2022-05-25 Doctor Unassigned, No [facility] 06:01:00 [facility] MR BRAIN WO CONTRAST 2021-12-02 Requisition, Paper [facility] 16:10:30 [facility] Partial hysterectomy [facility] Tubal ligation [facility] Plan of Care Planned Activity Planned Date Details Comments Source Goal Plan of Care Note [code = 59347-6] Goal Plan of Care Note [code = 51125-6] Goal Plan of Care Note [code = 61476-4] Goal Plan of Care Note [code = 22555-3] Goal Plan of Care Note [code = 47448-5] Goal Plan of Care Note [code = 05281-5] Goal Plan of Care Note [code = 02145-5] Goal Plan of Care Note [code = 51463-2] Goal Plan of Care Note [code = 88392-6] Goal Plan of Care Note [code = 27370-3] Goal Plan of Care Note [code = 01093-3] Goal Plan of Care Note [code = 51597-6] Goal Plan of Care Note [code = 68694-1] Goal Plan of Care Note [code = 28978-0] Goal Plan of Care Note [code = 86971-6] Goal Plan of Care Note [code = 34453-2] Goal Plan of Care Note [code = 94468-7] Goal Plan of Care Note [code = 89560-4] Goal Plan of Care Note [code = 19951-9] Goal Plan of Care Note [code = 58046-8] Goal Plan of Care Note [code = 19381-9] Goal Plan of Care Note [code = 95809-3] Goal Plan of Care Note [code = 31702-1] Goal Plan of Care Note [code = 36689-2] Goal Plan of Care Note [code = 89133-9] Goal Plan of Care Note [code = 07060-2] Goal Plan of Care Note [code = 38452-3] Goal Plan of Care Note [code = 06368-9] Goal Plan of Care Note [code = 29215-9] Goal Plan of Care Note [code = 68183-1] Goal Plan of Care Note [code = 73336-9] Goal Plan of Care Note [code = 67213-7] Goal Plan of Care Note [code = 20903-7] Goal Plan of Care Note [code = 14159-8] Goal Plan of Care Note [code = 08292-8] Goal Plan of Care Note [code = 55536-4] Goal Plan of Care Note [code = 33763-0] Goal Plan of Care Note [code = 00911-7] Goal Plan of Care Note [code = 17318-8] Goal Plan of Care Note [code = 71364-6] Goal Plan of Care Note [code = 11949-6] Goal Plan of Care Note [code = 26875-2] Goal Plan of Care Note [code = 05331-1] Goal Plan of Care Note [code = 66395-8] Goal Plan of Care Note [code = 36388-0] Goal Plan of Care Note [code = 81905-9] Goal Plan of Care Note [code = 32478-5] Goal Plan of Care Note [code = 95873-8] Goal Plan of Care Note [code = 28617-6] Goal Plan of Care Note [code = 45846-5] Goal Plan of Care Note [code = 30551-5] Goal Plan of Care Note [code = 75457-4] Goal Plan of Care Note [code = 23092-4] Goal Plan of Care Note [code = 32896-2] Goal Plan of Care Note [code = 64889-9] Goal Plan of Care Note [code = 40506-9] Goal Plan of Care Note [code = 33124-3] Goal Plan of Care Note [code = 28526-4] Goal Plan of Care Note [code = 46070-3] Goal Plan of Care Note [code = 96497-1] Goal Plan of Care Note [code = 61892-5] Goal Plan of Care Note [code = 33053-6] Goal Plan of Care Note [code = 97360-5] Goal Plan of Care Note [code = 45653-8] Goal Plan of Care Note [code = 18483-8] Goal Plan of Care Note [code = 73168-6] Goal Plan of Care Note [code = 65892-7] Goal Plan of Care Note [code = 68810-5] Goal Plan of Care Note [code = 20692-0] Goal Plan of Care Note [code = 06731-3] Goal Plan of Care Note [code = 96156-1] Goal Plan of Care Note [code = 52683-2] Goal Plan of Care Note [code = 65399-0] Goal Plan of Care Note [code = 17837-6] Goal Plan of Care Note [code = 11201-2] Goal Plan of Care Note [code = 50522-5] Goal Plan of Care Note [code = 47986-2] Goal Plan of Care Note [code = 61202-3] Goal Plan of Care Note [code = 26686-3] Goal Plan of Care Note [code = 28530-5] Goal Plan of Care Note [code = 63233-6] Goal Plan of Care Note [code = 57038-8] Goal Plan of Care Note [code = 51522-1] Goal Plan of Care Note [code = 89112-1] Goal Plan of Care Note [code = 08973-7] Encounters Start End Encounter Admission Attending Care Care Encounter Source Date/Time Date/Time Type Type Clinicians Facility Department ID 2021-02-09 Emergency [facility] [id number] Univers 15:02:34 [facility] 2023-03-11 2023-03-11 Outpatient JENNIFER JUSTICE [facility] [id number] Univers 09:20:00 09:20:00 JENNIFER ENGEL [facility] 2023-02-11 2023-02-11 Outpatient R JENNIFER ENGEL [facility] [id number] Univers 10:40:00 10:40:00 JENNIFER ENGEL [facility] 2022-11-25 2022-11-25 Outpatient HARSHAD BHAGAT [facility] [id number] Univers 12:20:00 12:20:00 [facility] 2022-10-21 2022-10-21 Outpatient Seth DELACRUZ [facility] [id number] Univers 09:00:00 09:00:00 SENDIL [facility] 2022-10-19 2022-10-19 Outpatient HARSHAD BHAGAT [facility] [id number] Univers 12:40:00 12:40:00 [facility] 2022-09-23 2022-09-23 Niecy Delacruz [facility] [id number] Univers 00:00:00 00:00:00 Sendil Latisha GEIGER [id number] [facility] [id number] Carley HU [id number] [address] 2022-09-23 2022-09-23 Telephone [facility] [id number] Univers 00:00:00 00:00:00 Tiffanie GEIGER [id number] it[facility] [id number] [id number] [address] 2022-09-22 2022-09-22 Outpatient R GORDY [facility] [id number] Univers 13:15:19 23:59:00 [facility] ity [facility] 2022-09-18 2022-09-18 Patient Doctor [facility] [id number] Univers 00:00:00 00:00:00 Secure Msg UnassignedJUANJO [id number] ity of [place] [id number] [address] 2022-09-16 2022-09-16 Telephone [facility] [id number] Univers 00:00:00 00:00:00 Tiffanie GEIGER [id number] ity of [place] [id number] [address] 2022-09-11 2022-09-13 Outside [facility] [id number] Memoria 13:32:10 04:59:59 Medical Neurology 02 l Records Gabriel Saldanaann 2022-09-11 2022-09-13 Outside [facility] [id number] Memoria 13:32:10 04:59:59 Medical Neurology 02 l Records Ocean Adán 2022-09-11 2022-09-12 Outpatient MHMISCHER MHMISCHER [id number] 08:32:10 23:59:59 02 2022-09-11 2022-09-11 Outpatient R KENAN KOHLER [facility] [id number] Univers 10:30:00 10:30:00 KENAN KOHLER i ty [facility] 2022-09-09 2022-09-09 Telephone Emir FREDERICKIT 1.2.840.114 [id number] Univers 00:00:00 00:00:00 Choselvin HEALTH [id number] it[place] [id number] [address] 2022-09-08 2022-09-08 [facility] 1.2.840.114 [id number] Univers 09:30:00 10:15:00 Chothiernoco HEALTH 350.1.13.10 [place] KONG [id number] [address] ([facility]) 2022-09-08 2022-09-08 Outpatient R JENNIFER ENGEL [facility] [id number] Univers 07:23:00 09:15:00 JENNIFER ENGEL ity of [facility] 2022-09-08 2022-09-08 Hospital [facility] 1.2.840.114 [id number] Univers 07:23:00 09:15:00 [facility] [id number] [place] KONG [id number] [address] ([facility]) 2022-09-08 2022-09-08 Orders Doctor JÚNIOR 1.2.840.114 [id number] Univers 00:00:00 00:00:00 Only Unassigned, PATITO 350.1.13.10 ity of [place] [facility] 4.2.7.2.686 Pedro Luis as [id number] [place] [address] Branch 2022-09-08 2022-09-08 [facility]phone [facility] 1.2.840.114 [id number] Univers 00:00:00 00:00:00 [facility] [id number] ity of [place] [id number] [address] 2022-09-02 2022-09-04 Outside [facility] [id number] Memoria 20:54:40 04:59:59 Medical Neurology 01 l Records Gabriel Mccain 2022-09-02 2022-09-04 Outside [facility] [id number] Memoria 20:54:40 04:59:59 Medical Neurology 01 l Records Gabriel Mccain 2022-09-02 2022-09-03 Outpatient MHMISCHER MHMISCHER [id number] 15:54:40 23:59:59 2022-08-27 2022-08-27 Telephone Nubia [facility] 1.2.111.720 [id number] Univers 00:00:00 00:00:00 Sendleif GEIGER 350.1.13.10 ity of [place] [id number] [place] [id number] [facility] 2022-08-21 2022-08-21 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 10 ity of [place] [id number] [facility] 353 [facility] 2022-08-21 2022-08-21 Out[facility] [id number] Univers 10:00:00 10:00:00 [facility] 2022-08-19 2022-08-19 Outpatient R JENNIFER ENGEL [facility] [id number] Univers 13:00:00 13:00:00 [facility] 2022-08-17 2022-08-17 [facility]phone [facility] 1.2.840.114 [id number] Univers 00:00:00 00:00:00 [facility] 350.1.13.10 ity [place] [id number] [place] [address] Branch OFFICE BUILDING 2022-08-13 2022-08-13 Outpatient [facility] [id number] Univers 09:40:00 10:00:34 JUSTICE ity of [facility] 2022-08-13 2022-08-13 Office Jennifer Engel [facility] 1. [id number] [facility] 09:40:00 10:00:34 Visit Dashajoaquina Justice [place] [id number] ity [facility] [id number] [facility] gonsalves SAMI [id number] Dc dical NAL 059 [facility] 2022-08-03 2022-08-03 Outpatient SFA SFA [id number] [place] 10:34:01 10:34:01 0424 F Abhinav 2022-07-28 2022-07-28 Ambulatory MHIE MNA [id number] Memoria 16:00:00 16:00:00 Pre-Reg Neurology 20 l Gabrile Mccain 2022-07-28 2022-07-28 Ambulatory MHIE MNA [id number] Memoria 16:00:00 16:00:00 Pre-Reg Neurology 20 l Gabriel Mccain 2022-07-28 2022-07-28 Outpatient MHIE MHIE [id number] Memoria 11:00:00 11:00:00 20 l Adán 2022-07-28 2022-07-28 Outpatient INOCENCIO Nix MHMISCHER [id number] 11:00:00 11:00:00 Marisela 20 Dewey 2022-07-24 2022-07-24 Ambulatory MHIE MNA [id number] Memoria 15:45:00 15:45:00 Pre-Reg Neurology 19 l Gabriel Mccain 2022-07-24 2022-07-24 Ambulatory MHIE MNA [id number] Memoria 15:45:00 15:45:00 Pre-Reg Neurology 19 l Gabriel Mccain 2022-07-24 2022-07-24 Outpatient MHIE MHIE [id number] Memoria 10:45:00 10:45:00 19 l Adán 2022-07-24 2022-07-24 Outpatient MAEVE NixSCHGUANAKO MHMISCHER [id number] 10:45:00 10:45:00 Marisela 19 Dewey 2022-06-23 2022-06-23 Telephone [facility] [id number] Univers 00:00:00 00:00:00 Sendil Latisha GEIGER 350.1.13.10 [place] [id number] Dc dical NAL 059 [facility] 2022-06-17 2022-06-17 Hospital [facility] 1.2.840.114 [id number] Univers 09:26:50 23:59:00 Encounter Tiffanie GEIGER 350.1.13.10 [place] [id number] [facility] [address] [employer] 2022-06-17 2022-06-17 Outpatient R [facility] [id number] Univers 09:26:49 23:59:00 SENDIL ity [facility] 2022-06-09 2022-06-09 Outpatient [facility] ARELI [id number] [place] 10:32:09 10:32:09 0228 F Abhinav 2022-05-27 2022-05-27 Outpatient R [facility] [id number] Univers 15:30:00 16:03:59 SENDIL [facility] 2022-05-27 2022-05-27 Office [facility] 1.2.840.114 [id number] Univers 15:30:00 16:03:59 Visit Tiffanie GEIGER 350.1.13.10 [place] [id number] Dc dical NAL 059 [facility] 2022-05-25 2022-05-25 Orders Doctor JÚNIOR 1.2.840.114 [id number] Univers 00:00:00 00:00:00 Only Unassigned, PATITO 350.1.13.10 ity of [place] [facility] 4.2.7.2.686 Pedro Luis as [id number] [facility] [address] 2022-05-19 2022-05-19 Outpatient SFA ARELI [id number] [place] 13:07:16 13:07:16 0207 Julio La 2022-04-14 2022-04-14 Outpatient SFA SFA [id number] [place] 14:35:29 14:35:29 0103 F Abhinav 2022 2022-03-27 Outpatient MHIE MNA [id number] Memoria 17:45:00 05:59:59 Neurology 18 l Gabriel Mccain 2022 2022-03-27 Outpatient MHIE MNA [id number] Memoria 17:45:00 05:59:59 Neurology 18 l Gabriel Mccain 2022 2022 Outpatient [facility] [id number] 11:45:00 23:59:59 Marisela 18 Dewey 2022 2022 Outpatient MHIE MHIE [id number] Memoria 11:45:00 11:45:00 18 barrett Mccain 2022-02-24 2022-02-24 Outpatient SFA ARELI [id number] [place] 16:09:08 16:09:08 1115 F Abhinav 2022-02-24 2022-02-24 Outpatient [id number] 00:00:00 00:00:00 Visit 469c-493e 69c-493e-a -[id number]-o57 [id number] 0tso9isp1 [id number] 2022-02-05 2022-02-05 Outpatient MHIE MHIE [id number] Memoria 15:15:00 15:15:00 13 barrett Mccain 2022-02-05 2022-02-05 Outpatient MHIE MHIE [id number] Memoria 15:15:00 15:15:00 13 barrett Mccain 2022-01-13 2022-01-13 Outpatient SFA SFA [id number] [place] 13:19:30 13:19:30 1004 F Abhinav 2022-01-13 2022-01-13 Outpatient [id number] [id number] 00:00:00 00:00:00 Visit 7k96-0wau z17-9lcv-9 -8639-7bf [id number] [id number] 2021-12-25 2021-12-26 Outpatient nullFlavo MNA [id number] Memoria 19:15:00 04:59:59 r Neurology 17 l Gabriel Mccain 2021-12-25 2021-12-26 Outpatient nullFlavo MNA [id number] Memoria 19:15:00 04:59:59 r Neurology 17 l Gabriel Mccain 2021-12-25 2021-12-25 Outpatient MAEVE NixSCHER MHMISCHER [id number] 14:15:00 23:59:59 Marisela 17 Dewey 2021-12-25 2021-12-25 Outpatient MHIE MHIE [id number] Memoria 14:15:00 14:15:00 17 barrett Mccain 2021-12-19 2021-12-19 Ambulatory nullFlavo MNA [id number] Memoria 15:45:00 15:45:00 Pre-Reg r Neurology 16 l Gabriel Mccain 2021-12-19 2021-12-19 Ambulatory nullFlavo MNA [id number] Memoria 15:45:00 15:45:00 Pre-Reg r Neurology 16 l Gabriel Mccain 2021-12-19 2021-12-19 Outpatient MHIE MHIE [id number] Memoria 10:45:00 10:45:00 16 barrett Mccain 2021-12-19 2021-12-19 Outpatient MAEVE NixSCHER MHMISCHER [id number] 10:45:00 10:45:00 Marisela 16 [place] 2021-12-11 2021-12-11 Ambulatory nullFlavo MNA [id number] Memoria 14:30:00 14:30:00 Pre-Reg r Neurology 13 barrett Mccain 2021-12-11 2021-12-11 Outpatient MAEVE NixSCHER MISCHER [id number] 09:30:00 09:30:00 Marisela 13 [place] 2021-12-02 2021-12-02 Outpatient R RADIOLOGY [facility] [id number] Univers 09:27:36 23:59:00 ity of [facility] 2021-12-02 2021-12-02 Hospital Radiology [facility] 1.2.840.114 [id number] Univers 09:27:36 23:59:00 Encounter JUANJO 350.1.13.10 ity [facility] 4.2.7.2.686 [facility] [id number] [address] 2021-11-28 2021-11-29 Outpatient nullFlavo MNA [id number] Memoria 18:15:00 04:59:59 r Neurology 15 l Gabriel Mccain 2021-11-28 2021-11-29 Outpatient nullFlavo MNA [id number] Memoria 18:15:00 04:59:59 r Neurology 15 l Gabriel Mccain 2021-11-29 2021-11-29 Outpatient [id number] [id number] 00:00:00 00:00:00 Visit 8bcd-4ccc bcd-4ccc-8 -0c9u-02b [id number]-[id number] 2021-11-28 2021-11-28 Outpatient INOCENCIO Nix MHMISCHER [id number] 13:15:00 23:59:59 Marisela 15 [place] 2021-11-28 2021-11-28 Outpatient MHIE MHIE [id number] Memoria 13:15:00 13:15:00 15 barrett Mccain 2021-11-20 2021-11-21 Outpatient nullFlavo MNA [id number] Memoria 16:15:00 04:59:59 r Neurology 14 l Gabriel Saldanaann 2021-11-20 2021-11-21 Outpatient nullFlavo MNA [id number] Memoria 16:15:00 04:59:59 r Neurology 14 l [place] Mccain 2021-11-20 2021-11-20 Outpatient INOCENCIO Nix MISCHER [id number] 11:15:00 23:59:59 Marisela 14 [place] 2021-11-20 2021-11-20 Outpatient MHIE MHIE [id number] Memoria 11:15:00 11:15:00 14 barrett Mccain 2021-10-21 2021-10-21 Outpatient Seth DELACRUZ [facility] [id number] Univers 10:30:00 11:00:36 SENDIL ity of [facility] 2021-10-21 2021-10-21 Office Nubia [facility] 1.2.840.114 [id number] Univers 10:30:00 11:00:36 Visit Sendil Latisha GEIGER 350.1.13.10 [place] [id number] Dc dical [facility] 059 [facility] 2021-10-21 2021-10-21 Orders Doctor JÚNIOR 1.2.840.114 [id number] Univers 00:00:00 00:00:00 Only Unassigned, PATITO 350.1.13.10 [facility] 4.2.7.2.686 Pedro Luis as [phone] [place] [address] [place] 2021-09-11 2021-09-11 Outpatient R NUBIA [facility] [id number] Univers 13:00:00 13:00:00 SENDIL ity of [facility] 2021-07-17 2021-07-18 Outpatient nullFlavo MNA [id number] Memoria 19:15:00 04:59:59 r Neurology 12 l Gabriel Mccain 2021-07-17 2021-07-18 Outpatient nullFlavo MNA [id number] Memoria 19:15:00 04:59:59 r Neurology 12 l Gabriel Mccain 2021-07-17 2021-07-17 Outpatient INOCENCIO NixSCHER [id number] 14:15:00 23:59:59 Marisela Ale Dewey 2021-07-17 2021-07-17 Outpatient MHIE IE [id number] Memoria 14:15:00 14:15:00 12 barrett Adán 2021-03-20 2021-03-21 Outpatient nullFlavo MNA [id number] Memoria 19:15:00 05:59:59 r Neurology 11 l Ocean Adán 2021-03-20 2021-03-21 Outpatient nullFlavo MNA [id number] Memoria 19:15:00 05:59:59 r Neurology 11 l Gabriel Mccain 2021-03-20 2021-03-20 Outpatient INOCENCIO Nix MHMISCHER [id number] 13:15:00 23:59:59 Marisela Gisselle Palomo 2021-03-20 2021-03-20 Outpatient [facility] [id number] Memoria 13:15:00 13:15:00 11 barrett Mccain 2021-03-10 2021-03-10 Outpatient R NUBIA [facility] [id number] Univers 13:00:00 13:47:43 SENDIL ity [facility] 2021-03-10 2021-03-10 Office Nubia [facility] 1.2.840.114 [id number] Univers 12:57:45 13:47:43 Visit Tiffanie GEIGER 350.1.13.10 [place] [id number] Dc dical NAL 059 [facility] 2021-03-10 2021-03-10 Orders Doctor JÚNIOR 1.2.840.114 [id number] Univers 00:00:00 00:00:00 Only Unassigned, PATITO 350.1.13.10 ity of [place] [facility] 4.2.7.2.686 Pedro Luis as [id number] [address] 2021-02-24 2021-02-24 [facility] 1.2.438.201 [id number] Univers 00:00:00 00:00:00 Tiffanie GEIGER 350.1.13.10 [place] [id number] Dc dical NAL 059 [facility] 2021-02-19 2021-02-19 Outpatient R NUBIA ARDAVID [facility] [id number] Univers 14:55:32 23:59:00 SENDIL ity [facility] 2021-02-19 2021-02-19 [facility] 1.2.840.114 [id number] Univers 14:55:32 23:59:00 Encounter Tiffanie GEIGER 350.1.13.10 [place] [id number] Dc dical NAL 843 [facility] 2021-01-30 2021-01-30 Telephone [facility] 1.2.106.610 [id number] Univers 00:00:00 00:00:00 Sendil Latisha Geiger 350.1.13.10 [place] [id number] Dc dical nal 059 [facility] 2021-01-24 2021-01-24 Telephone [facility] 1.2.914.678 [id number] Univers 00:00:00 00:00:00 Sendil Latisha Geiger 350.1.13.10 [place] [phone] Dc dical nal 9 [facility] 2021-01-20 2021-01-20 [facility] 1.2.840.114 [id number] Univers 08:30:00 23:59:00 Encounter Tiffanie Geiger 350.1.13.10 [place] [phone] Dc dical nal 846 [facility] 2021-01-20 2021-01-20 Office [facility] 1.2.840.114 [id number] Univers 13:03:44 14:12:38 Visit Tiffanie Geiger 350.1.13.10 [place] [phone] Dc dicme nal 9 [facility] 2021-01-20 2021-01-20 [facility] [id number] Univers 13:00:00 13:00:00 SENDIL ity of [facility] 2020-11-20 2020-11-21 Outpatient nullFlavo MNA [id number] Memoria 19:15:00 04:59:59 r Neurology 10 l Gabriel Mccain 2020-11-20 2020-11-21 Outpatient nullFlavo MNA [id number] Memoria 19:15:00 04:59:59 r Neurology 10 l Gabriel Mccain 2020-11-20 2020-11-20 Outpatient [facility]ade [facility] [id number] 14:15:00 23:59:59 Marisela 10 [place] 2020-11-20 2020-11-20 Outpatient MHIE MHIE [id number] Memoria 14:15:00 14:15:00 10 l Adán 2020-11-13 2020-11-13 Ambulatory nullFlavo MNA [id number] Memoria 18:30:00 18:30:00 Pre-Reg r Neurology 07 l Gabriel Saldanaann 2020-11-13 2020-11-13 Ambulatory nullFlavo MNA [id number] Memoria 18:30:00 18:30:00 Pre-Reg r Neurology 07 l Gabriel Adán 2020-11-13 2020-11-13 [facility]patient [id number] 13:30:00 13:30:00 Marisela 07 [place] 2020-08-21 2020-08-23 Outside nullFlavo MNA [id number] Memoria 15:18:18 04:59:59 Medical r Neurology 00 l Records Ocean Adán 2020-08-21 2020-08-23 Outside nullFlavo MNA [id number] Memoria 15:18:18 04:59:59 Medical r Neurology 00 l Records [place] Adán 2020-08-21 2020-08-22 [facility]patient [id number] 10:18:18 23:59:59 00 2020-08-03 2020-08-03 Emergency [facility] 1.2.840.[id number] [facility] 06:27:00 10:35:00 Liliane [place] 350.1.13.10 [facility] 4.2.7.2.686 [place] [facility] [id number] [facility] [address] [employer] 2020-07-30 2020-07-30 Outpatient MHIE MHIE [id number] Memoria 13:30:00 13:30:00 07 barrett Adán 2020-07-11 2020-07-12 Outpatient nullFlavo MNA [id number] Memoria 18:00:00 04:59:59 r Neurology 09 l Gabriel Adán 2020-07-11 2020-07-12 Outpatient nullFlavo MNA [id number] Memoria 18:00:00 04:59:59 r Neurology 09 l Gabriel Mccain 2020-07-11 2020-07-11 Outpatient INOCENCIO NixSCHER [id number] 13:00:00 23:59:59 Marisela Sharif Palomo 2020-07-11 2020-07-11 Outpatient MHIE DYLANIE [id number] Memoria 13:00:00 13:00:00 09 barrett Mccain 2020-07-04 2020-07-04 Hospital Radiology [facility] 1.2.840.114 [id number] Univers 09:43:35 23:59:00 Encounter [place] 350.1.13.10 itDay [facility] 4.2.7.2.686 [place] [facility] [id number] [address] 2020-07-04 2020-07-04 Outpatient R RADIOLOGY [facility] [id number] Univers 09:43:35 23:59:00 ity [facility] 2020-07-04 2020-07-04 Outpatient R RADIOLOGY [facility] [id number] Univers 00:00:00 00:00:00 ity [facility] 2020-06-14 2020-06-15 Outpatient nullFlavo MNA [id number] Memoria 21:45:00 05:59:59 r Neurology 08 barrett Mccain 2020-06-14 2020-06-15 Outpatient nullFlavo MNA [id number] Memoria 21:45:00 05:59:59 r Neurology 08 barrett [place] Adán 2020-06-14 2020-06-14 Outpatient INOCENCIO Nix MONICOSCHGUANAKO [id number] 15:45:00 23:59:59 Marisela Bassam Palomo 2020-06-14 2020-06-14 Outpatient MHIE MHIE [id number] Memoria 15:45:00 15:45:00 08 barrett Mccain 2020-04-30 2020-04-30 Outpatient MHIE MHIE [id number] Memoria 09:30:00 09:30:00 05 barrett Mccain 2020-04-30 2020-04-30 Outpatient MHIE DYLANIE [id number] Memoria 09:30:00 09:30:00 05 l 2020-04-10 2020-04-10 Outpatient MHIE MHIE [id number] Memoria 13:00:00 13:00:00 06 l 2020-04-10 2020-04-10 Outpatient MHIE MHIE [id number] Memoria 13:00:00 13:00:00 06 l Adán 2020-03-15 2020-03-16 Outpatient nullFlavo MNA [id number] Memoria 19:00:00 05:59:59 r Neurology 04 l Ocean Adán 2020-03-15 2020-03-16 Outpatient nullFlavo MNA [id number] Memoria 19:00:00 05:59:59 r Neurology 04 l [place] Adán 2020-03-15 2020-03-15 Outpatient Jade [facility] [id number] 13:00:00 23:59:59 Marisela 04 [place] 2020-03-15 2020-03-15 Ambulatory nullFlavo MNA [id number] Memoria 16:15:00 16:15:00 Pre-Reg r Neurology 01 l [place] Adán 2020-03-15 2020-03-15 Ambulatory nullFlavo MNA [id number] Memoria 16:15:00 16:15:00 Pre-Reg r Neurology 01 l [place] Adán 2020-03-15 2020-03-15 Outpatient MHIE MHIE [id number] Memoria 13:00:00 13:00:00 04 barrett [place] 2020-03-15 2020-03-15 Outpatient MHIE MHIE [id number] Memoria 10:15:00 10:15:00 01 barrett Mccain 2020-03-15 2020-03-15 Outpatient Jade [facility] [id number] 10:15:00 10:15:00 Marisela 01 [place] 2020-03-05 2020-03-06 Outpatient nullFlavo MNA [id number] Memoria 16:00:00 05:59:59 r Neurology 03 l [place] Adán 2020-03-05 2020-03-06 Outpatient nullFlavo MNA [id number] Memoria 16:00:00 05:59:59 r Neurology 03 l Gabriel Mccain 2020-03-05 2020-03-05 Outpatient [facility] [id number] 10:00:00 23:59:59 Marisela 03 2020-03-05 2020-03-05 Outpatient MHIE MHIE [id number] Memoria 10:00:00 10:00:00 03 l [place] 2020-02-08 2020-02-08 Ambulatory nullFlavo MNA [id number] Memoria 15:00:00 15:00:00 Pre-Reg r Neurology 02 l [place] Adán 2020-02-08 2020-02-08 Ambulatory nullFlavo MNA [id number] Memoria 15:00:00 15:00:00 Pre-Reg r Neurology 02 l [place] Adán 2020-02-08 2020-02-08 Outpatient MHIE MHIE [id number] Memoria 10:00:00 10:00:00 02 l Adán 2020-02-08 2020-02-08 Outpatient [facility] 061 [id number] 10:00:00 10:00:00 Marisela 02 [place] 2020-02-02 2020-02-03 Outpatient nullFlavo MNA [id number] Memoria 18:45:00 04:59:59 r Neurology 00 l Gabriel Saldanaann 2020-02-02 2020-02-03 Outpatient nullFlavo MNA [id number] Memoria 18:45:00 04:59:59 r Neurology 00 l Gabriel Adán 2020-02-02 2020-02-02 [facility] [id number] 13:45:00 23:59:59 Marisela 00 [place] 2020-02-02 2020-02-02 Outpatient MHIE IE [id number] Memoria 13:45:00 13:45:00 00 l [place] Results Test Description Test Time Test Comments Results Result Comments Source POCT CREATININE 2022-06-17 17:25:20 Test Item Value Reference Range Interpretation Comme nts POCT Creatinine (test code = 6244454219) 1.1 mg/dL 0.5-1.1 Lab Interpretation (test code = 69327-6) [facility] Test Item Value Reference Interpretation Comments Range TOPIRAMATE (test 7.7 mcg/mL 2.0-20.0 This test w as developed and code = 5955) its performance characteristics determined by [facility] ([facility]). It has n ot beencleared or approved by the U.S. Food and Drug Admini stration (FDA).The FDA h as determined that such clear ance or approval is not necessary. This test is used fo r clinical purposes and sh ould not beregarded as i nvestigational or for research . [facility] is qualified toper form high complexity test ing under the Clinical Labora toryImprovement Amendments (CLI A). TESTING PERFORMED AT [facility] . [address], [address], [address] [place], [place] [address] CLIA NO: [id number] UNLE SS OTHERWISE INDICATED, ALL TESTING PERFORMED [facility], [facility]. [address] [place], [place] [address] BIOMEDICAL INSTRUMENT TECHNICIAN: NIC BOWDEN M.D. [place] [facility]ITALShirley Ann [id number] [place] [id number] 00:00:00 Test Item Value Reference Range Interpretation Comments TOPIRAMATE (test code = 5955) 7.7 mcg/mL [id number] 00:00:00 Test Item Value Reference Range Interpretation Comments TOPIRAMATE (test code = 5955) 7.7 mcg/mL [id number] 00:00:00 Test Item Value Reference Range Interpretation Comments TOPIRAMATE (test code = 5955) 7.7 mcg/mL [id number] 00:00:00 Test Item Value Reference Range Interpretation Comments TOPIRAMATE (test code = 5955) 7.7 mcg/mL CARBAMAZEPINE (TEGRETOL)2021-12-13 06:40:19 Test Item Value Reference Range Interpretation Comments CARBAMAZEPINE (TEGRETOL) (test code 7.0 UG/ML 4.0-12.0 = 3006) CARBAMAZEPINE (TEGRETOL)2021-12-13 00:00:00 Test Item Value Reference Range Interpretation Comments CARBAMAZEPINE (TEGRETOL) (test code 7.0 UG/ML = 3006) CARBAMAZEPINE (TEGRETOL)2021-12-13 00:00:00 Test Item Value Reference Range Interpretation Comments CARBAMAZEPINE (TEGRETOL) (test code 7.0 UG/ML = 3006) CARBAMAZEPINE (TEGRETOL)2021-12-13 00:00:00 Test Item Value Reference Range Interpretation Comments CARBAMAZEPINE (TEGRETOL) (test code 7.0 UG/ML = 3006) CARBAMAZEPINE (TEGRETOL)2021-12-13 00:00:00 Test Item Value Reference Range Interpretation Comments CARBAMAZEPINE (TEGRETOL) (test code 7.0 UG/ML = 3006) CARBAMAZEPINE (TEGRETOL)2021-12-13 00:00:00 Test Item Value Reference Range Interpretation Comments CARBAMAZEPINE (TEGRETOL) (test code 7.0 UG/ML = 3006) CARBAMAZEPINE (TEGRETOL)2021-12-13 00:00:00 Test Item Value Reference Range Interpretation Comments CARBAMAZEPINE (TEGRETOL) (test code 7.0 UG/ML = 3006) [id number] 14:01:50 Test Item Value Reference Range Interpretation Comments TOPIRAMATE (test code = TNP Unab le to perform 5955) testing, improp er specimen receiv ed.Charges adjusted as feroz licable. TESTING PERFORM ED AT [facility] . [address] [place] [address], [address], [address] [place] [address] CLIA NO: [id number] UNLESS OTHERWIS E INDICATED, ALL TESTING PERFORMED [facility]OLOG[facility] [address] [place] [id number] [place] [address] DIRECTOR: NIC BOWDEN M.D. CLIA NUMBER [id number] CAP ACCREDITATION N O. [id number] 00:00:00 Test Item Value Reference Range Interpretation Comments TOPIRAMATE (test code = 5955) TNP [id number] 00:00:00 Test Item Value Reference Range Interpretation Comments TOPIRAMATE (test code = 5955) TNP [id number] 00:00:00 Test Item Value Reference Range Interpretation Comments TOPIRAMATE (test code = 5955) TNP [id number] 00:00:00 Test Item Value Reference Range Interpretation Comments TOPIRAMATE (test code = 5955) TNP CARBAMAZEPINE (TEGRETOL)2021-12-01 00:14:14 Test Item Value Reference Range Interpretation Comments CARBAMAZEPINE (TEGRETOL) (test code 5.4 UG/ML 4.0-12.0 = 3006) CARBAMAZEPINE (TEGRETOL)2021-12-01 00:00:00 Test Item Value Reference Range Interpretation Comments CARBAMAZEPINE (TEGRETOL) (test code 5.4 UG/ML = 3006) CARBAMAZEPINE (TEGRETOL)2021-12-01 00:00:00 Test Item Value Reference Range Interpretation Comments CARBAMAZEPINE (TEGRETOL) (test code 5.4 UG/ML = 3006) CARBAMAZEPINE (TEGRETOL)2021-12-01 00:00:00 Test Item Value Reference Range Interpretation Comments CARBAMAZEPINE (TEGRETOL) (test code 5.4 UG/ML = 3006) CARBAMAZEPINE (TEGRETOL)2021-12-01 00:00:00 Test Item Value Reference Range Interpretation Comments CARBAMAZEPINE (TEGRETOL) (test code 5.4 UG/ML = 3006) CARBAMAZEPINE (TEGRETOL)2021-12-01 00:00:00 Test Item Value Reference Range Interpretation Comments CARBAMAZEPINE (TEGRETOL) (test code 5.4 UG/ML = 3006) CARBAMAZEPINE (TEGRETOL)2021-12-01 00:00:00 Test Item Value Reference Range Interpretation Comments CARBAMAZEPINE (TEGRETOL) (test code 5.4 UG/ML = 3006) LIPID [id number] 00:13:45 Test Item Value Reference Range Interpretation Comments CHOLESTEROL (test 217 MG/DL <200 H code = 2210) TRIGLYCERIDES (test 164 MG/DL <150 H code = 2232) HDL CHOLESTEROL (test 40 MG/DL >39 code = 2220) CALC LDL CHOL (test 147 MG/DL <100 H NOTE: C ALCULATED LDL code = 2237) IS BASED ON CRYSTAL-PRICE METHOD WHICHINCLUDES ADJUSTABLE TRIGLYCERIDE:VL DL CHOLESTEROL RAT IO.THIS FACTOR VARIES B Y MEASURED TRIGLY CERIDE AND NON-HDLCHOL ESTEROL CONCENTRATIONS WITH INCREASED CALCU LATED LDL SEENIN HIGH ER TRIGLYCERIDE OR LOWER NON-HDL SPECIME NS. FOR MOREINFORMATION , SEE CLIENT ANNOUNCE MENT AT [email or web address] RISK RATIO LDL/HDL 3.68 RATIO <3.22 H (test code = 2238) COMPREHENSIVE METABOLIC [id number] 00:13:45 Test Item Value Reference Range Interpretation Comments GLUCOSE (test code = 89 MG/DL 70-99 2216) BUN (test code = 8 MG/DL 6-20 2207) CREATININE (test 1.14 MG/DL 0.60-1.30 code = 2213) eGFR (2020 CKD-EPI) 59 >60 L (test code = 64958) ML/MIN/1.73 CALC BUN/CREAT (test 7 RATIO 6-28 code = 223) SODIUM (test code = 145 MEQ/L 472-529 0526) POTASSIUM (test code 4.2 MEQ/L 3.5-5.4 = 2227) CHLORIDE (test code 109 MEQ/L 95-107 H = 2214) CARBON DIOXIDE (test 21 MEQ/L 19-31 code = 2205) CALCIUM (test code = 9.5 MG/DL 8.5-10.5 2208) PROTEIN, TOTAL (test 6.5 G/DL 6.1-8.3 code = 2228) ALBUMIN (test code = 4.2 G/DL 3.5-5.2 2200) CALC GLOBULIN (test 2.3 G/DL 1.9-3.7 code = 2239) CALC A/G RATIO (test 1.8 RATIO 1.0-2.6 code = 223) BILIRUBIN, TOTAL <0.2 MG/DL See_Comment [Automated message] (test code = 2206) The [employer] which generated this result transmitted ref erence range: <=1.2. T he reference range was not used to int erpret this result as normal/abnormal . ALKALINE PHOSPHATASE 123 U/L 40-125 (test code = 2203) AST (test code = 13 U/L 9-40 2217) ALT (test code = 12 U/L 5-40 UNLESS OTH ERWISE 2218) INDICATED, ALL TESTING PERFORM [facility] [place] [address] [facility] [place] [id number] [place] [address] DIRECTOR: Van SIGALAIA NUMBER [id number] CAP ACCREDITATION N O. [id number] CARBAMAZEPINE (TEGRETOL)2021-07-08 00:13:23 Test Item Value Reference Range Interpretation Comments CARBAMAZEPINE (TEGRETOL) (test code 5.3 UG/ML 4.0-12.0 = 3006) CARBAMAZEPINE (TEGRETOL)2021-07-08 00:00:00 Test Item Value Reference Range Interpretation Comments CARBAMAZEPINE (TEGRETOL) (test code 5.3 UG/ML = 3006) LIPID [id number] 00:00:00 Test Item Value Reference Range Interpretation Comments CHOLESTEROL (test code = 2210) 217 MG/DL TRIGLYCERIDES (test code = 2232) 164 MG/DL HDL CHOLESTEROL (test code = 2220) 40 MG/DL CALC LDL CHOL (test code = 2237) 147 MG/DL RISK RATIO LDL/HDL (test code = 3.68 RATIO 2238) LIPID [id number] 00:00:00 Test Item Value Reference Range Interpretation Comments CHOLESTEROL (test code = 2210) 217 MG/DL TRIGLYCERIDES (test code = 2232) 164 MG/DL HDL CHOLESTEROL (test code = 2220) 40 MG/DL CALC LDL CHOL (test code = 2237) 147 MG/DL RISK RATIO LDL/HDL (test code = 3.68 RATIO 2238) COMPREHENSIVE METABOLIC [id number] 00:00:00 Test Item Value Reference Range Interpretation Comments GLUCOSE (test code = 2217) 89 MG/DL BUN (test code = 2208) 8 MG/DL CREATININE (test code = 2214) 1.14 MG/DL eGFR (2020 CKD-EPI) (test code 59 ML/MIN/1.73 = 73411) CALC BUN/CREAT (test code = 7 RATIO 2235) SODIUM (test code = 2231) 145 MEQ/L POTASSIUM (test code = 2228) 4.2 MEQ/L CHLORIDE (test code = 2215) 109 MEQ/L CARBON DIOXIDE (test code = 21 MEQ/L 2205) CALCIUM (test code = 2209) 9.5 MG/DL PROTEIN, TOTAL (test code = 6.5 G/DL 2228) ALBUMIN (test code = 2201) 4.2 G/DL CALC GLOBULIN (test code = 2.3 G/DL 2240) CALC A/G RATIO (test code = 1.8 RATIO 2234) BILIRUBIN, TOTAL (test code = <0.2 MG/DL 2206) ALKALINE PHOSPHATASE (test 123 U/L code = 2204) AST (test code = 2218) 13 U/L ALT (test code = 2219) 12 U/L COMPREHENSIVE METABOLIC [id number] 00:00:00 Test Item Value Reference Range Interpretation Comments GLUCOSE (test code = 2217) 89 MG/DL BUN (test code = 2208) 8 MG/DL CREATININE (test code = 2214) 1.14 MG/DL eGFR (2020 CKD-EPI) (test code 59 ML/MIN/1.73 = 50688) CALC BUN/CREAT (test code = 7 RATIO 2235) SODIUM (test code = 2231) 145 MEQ/L POTASSIUM (test code = 2228) 4.2 MEQ/L CHLORIDE (test code = 2215) 109 MEQ/L CARBON DIOXIDE (test code = 21 MEQ/L 2205) CALCIUM (test code = 2209) 9.5 MG/DL PROTEIN, TOTAL (test code = 6.5 G/DL 2228) ALBUMIN (test code = 220) 4.2 G/DL CALC GLOBULIN (test code = 2.3 G/DL 2239) CALC A/G RATIO (test code = 1.8 RATIO 2233) BILIRUBIN, TOTAL (test code = <0.2 MG/DL 2206) ALKALINE PHOSPHATASE (test 123 U/L code = 2204) AST (test code = 2218) 13 U/L ALT (test code = 2219) 12 U/L CARBAMAZEPINE (TEGRETOL)2021-07-08 00:00:00 Test Item Value Reference Range Interpretation Comments CARBAMAZEPINE (TEGRETOL) (test code 5.3 UG/ML = 3006) CARBAMAZEPINE (TEGRETOL)2021-07-08 00:00:00 Test Item Value Reference Range Interpretation Comments CARBAMAZEPINE (TEGRETOL) (test code 5.3 UG/ML = 3006) CARBAMAZEPINE (TEGRETOL)2021-07-08 00:00:00 Test Item Value Reference Range Interpretation Comments CARBAMAZEPINE (TEGRETOL) (test code 5.3 UG/ML = 3006) LIPID [id number] 00:00:00 Test Item Value Reference Range Interpretation Comments CHOLESTEROL (test code = 2210) 217 MG/DL TRIGLYCERIDES (test code = 2232) 164 MG/DL HDL CHOLESTEROL (test code = 2220) 40 MG/DL CALC LDL CHOL (test code = 2237) 147 MG/DL RISK RATIO LDL/HDL (test code = 3.68 RATIO 2238) LIPID [id number] 00:00:00 Test Item Value Reference Range Interpretation Comments CHOLESTEROL (test code = 2210) 217 MG/DL TRIGLYCERIDES (test code = 2232) 164 MG/DL HDL CHOLESTEROL (test code = 2220) 40 MG/DL CALC LDL CHOL (test code = 2237) 147 MG/DL RISK RATIO LDL/HDL (test code = 3.68 RATIO 2238) COMPREHENSIVE METABOLIC [id number] 00:00:00 Test Item Value Reference Range Interpretation Comments GLUCOSE (test code = 2217) 89 MG/DL BUN (test code = 2208) 8 MG/DL CREATININE (test code = 2214) 1.14 MG/DL eGFR (2020 CKD-EPI) (test code 59 ML/MIN/1.73 = 95057) CALC BUN/CREAT (test code = 7 RATIO 2235) SODIUM (test code = 2231) 145 MEQ/L POTASSIUM (test code = 2228) 4.2 MEQ/L CHLORIDE (test code = 2215) 109 MEQ/L CARBON DIOXIDE (test code = 21 MEQ/L 2205) CALCIUM (test code = 2209) 9.5 MG/DL PROTEIN, TOTAL (test code = 6.5 G/DL 2228) ALBUMIN (test code = 2201) 4.2 G/DL CALC GLOBULIN (test code = 2.3 G/DL 0) CALC A/G RATIO (test code = 1.8 RATIO 4) BILIRUBIN, TOTAL (test code = <0.2 MG/DL 2206) ALKALINE PHOSPHATASE (test 123 U/L code = 2204) AST (test code = 2218) 13 U/L ALT (test code = 2219) 12 U/L COMPREHENSIVE METABOLIC [id number] 00:00:00 Test Item Value Reference Range Interpretation Comments GLUCOSE (test code = 2217) 89 MG/DL BUN (test code = 2208) 8 MG/DL CREATININE (test code = 2214) 1.14 MG/DL eGFR (2020 CKD-EPI) (test code 59 ML/MIN/1.73 = 10111) CALC BUN/CREAT (test code = 7 RATIO 2235) SODIUM (test code = 2231) 145 MEQ/L POTASSIUM (test code = 2228) 4.2 MEQ/L CHLORIDE (test code = 2215) 109 MEQ/L CARBON DIOXIDE (test code = 21 MEQ/L 220) CALCIUM (test code = 2209) 9.5 MG/DL PROTEIN, TOTAL (test code = 6.5 G/DL 2228) ALBUMIN (test code = 2201) 4.2 G/DL CALC GLOBULIN (test code = 2.3 G/DL 2240) CALC A/G RATIO (test code = 1.8 RATIO 2234) BILIRUBIN, TOTAL (test code = <0.2 MG/DL 2206) ALKALINE PHOSPHATASE (test 123 U/L code = 2204) AST (test code = 2218) 13 U/L ALT (test code = 2219) 12 U/L CARBAMAZEPINE (TEGRETOL)2021-07-08 00:00:00 Test Item Value Reference Range Interpretation Comments CARBAMAZEPINE (TEGRETOL) (test code 5.3 UG/ML = 3006) CARBAMAZEPINE (TEGRETOL)2021-07-08 00:00:00 Test Item Value Reference Range Interpretation Comments CARBAMAZEPINE (TEGRETOL) (test code 5.3 UG/ML = 3006) CARBAMAZEPINE (TEGRETOL)2021-07-08 00:00:00 Test Item Value Reference Range Interpretation Comments CARBAMAZEPINE (TEGRETOL) (test code 5.3 UG/ML = 3006) LIPID [id number] 00:00:00 Test Item Value Reference Range Interpretation Comments CHOLESTEROL (test code = 2210) 217 MG/DL TRIGLYCERIDES (test code = 2232) 164 MG/DL HDL CHOLESTEROL (test code = 2220) 40 MG/DL CALC LDL CHOL (test code = 2237) 147 MG/DL RISK RATIO LDL/HDL (test code = 3.68 RATIO 2238) LIPID [id number] 00:00:00 Test Item Value Reference Range Interpretation Comments CHOLESTEROL (test code = 2210) 217 MG/DL TRIGLYCERIDES (test code = 2232) 164 MG/DL HDL CHOLESTEROL (test code = 2220) 40 MG/DL CALC LDL CHOL (test code = 2237) 147 MG/DL RISK RATIO LDL/HDL (test code = 3.68 RATIO 2238) COMPREHENSIVE METABOLIC [id number] 00:00:00 Test Item Value Reference Range Interpretation Comments GLUCOSE (test code = 2217) 89 MG/DL BUN (test code = 2208) 8 MG/DL CREATININE (test code = 2214) 1.14 MG/DL eGFR (2020 CKD-EPI) (test code 59 ML/MIN/1.73 = 49727) CALC BUN/CREAT (test code = 7 RATIO 2235) SODIUM (test code = 2231) 145 MEQ/L POTASSIUM (test code = 2228) 4.2 MEQ/L CHLORIDE (test code = 2215) 109 MEQ/L CARBON DIOXIDE (test code = 21 MEQ/L 2206) CALCIUM (test code = 2209) 9.5 MG/DL PROTEIN, TOTAL (test code = 6.5 G/DL 222) ALBUMIN (test code = 2201) 4.2 G/DL CALC GLOBULIN (test code = 2.3 G/DL 2240) CALC A/G RATIO (test code = 1.8 RATIO 2234) BILIRUBIN, TOTAL (test code = <0.2 MG/DL 2206) ALKALINE PHOSPHATASE (test 123 U/L code = 2204) AST (test code = 2218) 13 U/L ALT (test code = 2219) 12 U/L COMPREHENSIVE METABOLIC [id number] 00:00:00 Test Item Value Reference Range Interpretation Comments GLUCOSE (test code = 2217) 89 MG/DL BUN (test code = 2208) 8 MG/DL CREATININE (test code = 2214) 1.14 MG/DL eGFR (2020 CKD-EPI) (test code 59 ML/MIN/1.73 = 89870) CALC BUN/CREAT (test code = 7 RATIO 2235) SODIUM (test code = 2231) 145 MEQ/L POTASSIUM (test code = 2228) 4.2 MEQ/L CHLORIDE (test code = 2215) 109 MEQ/L CARBON DIOXIDE (test code = 21 MEQ/L 2205) CALCIUM (test code = 2209) 9.5 MG/DL PROTEIN, TOTAL (test code = 6.5 G/DL 2228) ALBUMIN (test code = 2201) 4.2 G/DL CALC GLOBULIN (test code = 2.3 G/DL 2240) CALC A/G RATIO (test code = 1.8 RATIO 2234) BILIRUBIN, TOTAL (test code = <0.2 MG/DL 2206) ALKALINE PHOSPHATASE (test 123 U/L code = 2204) AST (test code = 2218) 13 U/L ALT (test code = 2219) 12 U/L CARBAMAZEPINE (TEGRETOL)2021-07-08 00:00:00 Test Item Value Reference Range Interpretation Comments CARBAMAZEPINE (TEGRETOL) (test code 5.3 UG/ML = 3006) CARBAMAZEPINE (TEGRETOL)2021-07-08 00:00:00 Test Item Value Reference Range Interpretation Comments CARBAMAZEPINE (TEGRETOL) (test code 5.3 UG/ML = 3006) CARBAMAZEPINE (TEGRETOL)2021-04-21 01:12:09 Test Item Value Reference Range Interpretation Comments CARBAMAZEPINE 3.0 UG/ML 4.0-12.0 L UNLESS OTHERW ISE (TEGRETOL) (test code INDICA SLICK, ALL TESTING = 3006) PERFORMED [facility], [facility]. [address] [place] [address] [facility] DIRECTOR: Van SIGALAIA NUMBER [id number] [facility] ACCREDITATION N O. [id number] CARBAMAZEPINE (TEGRETOL)2021-04-21 00:00:00 Test Item Value Reference Range Interpretation Comments CARBAMAZEPINE (TEGRETOL) (test code 3.0 UG/ML = 3006) CARBAMAZEPINE (TEGRETOL)2021-04-21 00:00:00 Test Item Value Reference Range Interpretation Comments CARBAMAZEPINE (TEGRETOL) (test code 3.0 UG/ML = 3006) CARBAMAZEPINE (TEGRETOL)2021-04-21 00:00:00 Test Item Value Reference Range Interpretation Comments CARBAMAZEPINE (TEGRETOL) (test code 3.0 UG/ML = 3006) CARBAMAZEPINE (TEGRETOL)2021-04-21 00:00:00 Test Item Value Reference Range Interpretation Comments CARBAMAZEPINE (TEGRETOL) (test code 3.0 UG/ML = 3006) CARBAMAZEPINE (TEGRETOL)2021-04-21 00:00:00 Test Item Value Reference Range Interpretation Comments CARBAMAZEPINE (TEGRETOL) (test code 3.0 UG/ML = 3006) CARBAMAZEPINE (TEGRETOL)2021-04-21 00:00:00 Test Item Value Reference Range Interpretation Comments CARBAMAZEPINE (TEGRETOL) (test code 3.0 UG/ML = 3006) CARBAMAZEPINE (TEGRETOL)2021-04-21 00:00:00 Test Item Value Reference Range Interpretation Comments CARBAMAZEPINE (TEGRETOL) (test code 3.0 UG/ML = 3006) CARBAMAZEPINE (TEGRETOL)2021-04-21 00:00:00 Test Item Value Reference Range Interpretation Comments CARBAMAZEPINE (TEGRETOL) (test code 3.0 UG/ML = 3006) CARBAMAZEPINE (TEGRETOL)2021-04-21 00:00:00 Test Item Value Reference Range Interpretation Comments CARBAMAZEPINE (TEGRETOL) (test code 3.0 UG/ML = 3006) TSH, THIRD [id number] 06:44:08 Test Item Value Reference Range Interpretation Comments TSH, THIRD 3.310 UIU/ML 0.400-4.100 UNLESS OTHERWI SE GENERATION (test INDICATED, ALL TESTING code = 2821) PERFORMED [facility] [place]. [address] [place] [address] [facility] DIRECTOR: NIC BOWDEN M.D. CLIA NUMBER [id number] [facility] ACCREDITATION N O. [id number] COMPREHENSIVE METABOLIC [id number] 04:48:21 Test Item Value Reference Range Interpretation Comments GLUCOSE (test code = 88 MG/DL 70-99 2216) BUN (test code = 11 MG/DL 6-20 2207) CREATININE (test 1.02 MG/DL 0.60-1.30 EFFECTIVE code = 2214) 03/24/2021, [facility] HAS IMPLEMENTED THE NKF-ASN RECOMME NDED KD-EPI EGF R REFIT CALCULATI ON THAT DOES NOT INCLUDE A COEFFICIENT FOR RACE. FOR MORE INFORMATION, SE E ANNOUNCEMENT [email or web address] eGFR (2020 CKD-EPI) 67 ML/MIN/1.73 >60 (test code = 91488) CALC BUN/CREAT (test 11 RATIO 6-28 code = 2235) SODIUM (test code = 145 MEQ/L 942-060 6692) POTASSIUM (test code 4.4 MEQ/L 3.5-5.4 = 2227) CHLORIDE (test code 111 MEQ/L 95-107 H = 221) CARBON DIOXIDE (test 26 MEQ/L 19-31 code = 220) CALCIUM (test code = 9.2 MG/DL 8.5-10.5 2208) PROTEIN, TOTAL (test 6.7 G/DL 6.1-8.3 code = 2229) ALBUMIN (test code = 4.2 G/DL 3.5-5.2 2200) CALC GLOBULIN (test 2.5 G/DL 1.9-3.7 code = 2240) CALC A/G RATIO (test 1.7 RATIO 1.0-2.6 code = 2234) BILIRUBIN, TOTAL <0.2 MG/DL See_Comment [Automated message] (test code = 2207) The syste m which generated this result transmit slick reference range : <=1.2. The refe rence range was not u sed to interpret th is result as normal/abnormal . ALKALINE PHOSPHATASE 125 U/L 40-125 (test code = 2204) AST (test code = 17 U/L 9-40 2217) ALT (test code = 16 U/L 5-40 2218) LIPID [id number] 04:48:21 Test Item Value Reference Range Interpretation [...] MOREINFORMATION , SEE CLIENT ANNOUNCE MENT AT [email or web address] RISK RATIO LDL/HDL 3.70 RATIO <3.22 H (test code = 2238) CARBAMAZEPINE (TEGRETOL)2021-04-01 04:48:09 Test Item Value Reference Range Interpretation Comments CARBAMAZEPINE (TEGRETOL) (test code 3.4 UG/ML 4.0-12.0 L = 3006) HEMOGLOBIN [id number] 04:32:53 Test Item Value Reference Range Interpretation Comments HEMOGLOBIN A1c (test code = 93982) 5.3 % 4.2-5.6 CBC W/AUTO DIFF WITH [id number] 03:18:54 Test Item Value Reference Range Interpretation [...] LL BE ELIMINATED REDUNDANT TOABS OLUTE COUNTS.SEE [email or web address] te LYMPHOCYTES (test 39.4 % code = 1010) MONOCYTES (test code 5.9 % = 1011) EOSINOPHILS (test 1.8 % code = 1012) BASOPHILS (test code 0.1 % = 1013) IMMATURE GRANYLOCYTES 0.4 % (test code = 1036) NUCLEATED RBCS (test 0.0 /100 See_Comment [Autom ated message] code = 1065) WBC'S The system [employer] generated this result transmit slick reference range : 0.0. The refere nce [...] RBCS 0.00 K/UL 0.00-0.11 (test code = 39525) CARBAMAZEPINE (TEGRETOL)2021-04-01 00:00:00 Test Item Value Reference Range Interpretation Comments CARBAMAZEPINE (TEGRETOL) (test code 3.4 UG/ML = 3006) HEMOGLOBIN [id number] 00:00:00 Test Item Value Reference Range Interpretation Comments HEMOGLOBIN A1c (test code = 80254) 5.3 % HEMOGLOBIN [id number] 00:00:00 Test Item Value Reference Range Interpretation Comments HEMOGLOBIN A1c (test code = 82170) 5.3 % HEMOGLOBIN [id number] 00:00:00 Test Item Value Reference Range Interpretation Comments HEMOGLOBIN A1c (test code = 69255) 5.3 % CBC W/AUTO [id number] 00:00:00 Test Item Value Reference Range Interpretation Comments WBC (test code = 1001) 7.6 K/UL RBC (test code = 1002) 4.45 M/UL HEMOGLOBIN (test code = 1003) 15.1 G/DL HEMATOCRIT (test code = 1004) 43.5 % MCV (test code = 1005) 97.8 fL MCH (test code = 1006) 33.9 PG MCHC (test code = 1007) 34.7 G/DL RDW (test code = 1038) 12.0 % NEUTROPHILS (test code = 1008) 52.4 % LYMPHOCYTES (test code = 1010) 39.4 % MONOCYTES (test code = 1011) 5.9 % EOSINOPHILS (test code = 1012) 1.8 % BASOPHILS (test code = 1013) 0.1 % IMMATURE GRANYLOCYTES (test 0.4 % code = 1036) NUCLEATED RBCS (test code = 0.0 /100WBC'S 1065) PLATELET COUNT (test code = 227 K/UL 1015) ABSOLUTE NEUTROPHILS (test code 3.99 K/UL = 1066) ABSOLUTE LYMPHOCYTES (test code 3.00 K/UL = 1067) ABSOLUTE MONOCYTES (test code = 0.45 K/UL 1068) ABSOLUTE EOSINOPHILS (test code 0.14 K/UL = 1040) ABSOLUTE BASOPHILS (test code = 0.01 K/UL 1069) ABS IMMATURE GRANULOCYTES (test 0.03 K/UL code = 1020) ABS NUCLEATED RBCS (test code = 0.00 K/UL 60589) CBC W/AUTO [id number] 00:00:00 Test Item Value Reference Range Interpretation Comments WBC (test code = 1001) 7.6 K/UL RBC (test code = 1002) 4.45 M/UL HEMOGLOBIN (test code = 1003) 15.1 G/DL HEMATOCRIT (test code = 1004) 43.5 % MCV (test code = 1005) 97.8 fL MCH (test code = 1006) 33.9 PG MCHC (test code = 1007) 34.7 G/DL RDW (test code = 1038) 12.0 % NEUTROPHILS (test code = 1008) 52.4 % LYMPHOCYTES (test code = 1010) 39.4 % MONOCYTES (test code = 1011) 5.9 % EOSINOPHILS (test code = 1012) 1.8 % BASOPHILS (test code = 1013) 0.1 % IMMATURE GRANYLOCYTES (test 0.4 % code = 1036) NUCLEATED RBCS (test code = 0.0 /100WBC'S 1065) PLATELET COUNT (test code = 227 K/UL 1015) ABSOLUTE NEUTROPHILS (test code 3.99 K/UL = 1066) ABSOLUTE LYMPHOCYTES (test code 3.00 K/UL = 1067) ABSOLUTE MONOCYTES (test code = 0.45 K/UL 1068) ABSOLUTE EOSINOPHILS (test code 0.14 K/UL = 1040) ABSOLUTE BASOPHILS (test code = 0.01 K/UL 1069) ABS IMMATURE GRANULOCYTES (test 0.03 K/UL code = 1020) ABS NUCLEATED RBCS (test code = 0.00 K/UL 80727) CBC W/AUTO [id number] 00:00:00 Test Item Value Reference Range Interpretation Comments WBC (test code = 1001) 7.6 K/UL RBC (test code = 1002) 4.45 M/UL HEMOGLOBIN (test code = 1003) 15.1 G/DL HEMATOCRIT (test code = 1004) 43.5 % MCV (test code = 1005) 97.8 fL MCH (test code = 1006) 33.9 PG MCHC (test code = 1007) 34.7 G/DL RDW (test code = 1038) 12.0 % NEUTROPHILS (test code = 1008) 52.4 % LYMPHOCYTES (test code = 1010) 39.4 % MONOCYTES (test code = 1011) 5.9 % EOSINOPHILS (test code = 1012) 1.8 % BASOPHILS (test code = 1013) 0.1 % IMMATURE GRANYLOCYTES (test 0.4 % code = 1036) NUCLEATED RBCS (test code = 0.0 /100WBC'S 1065) PLATELET COUNT (test code = 227 K/UL 1015) ABSOLUTE NEUTROPHILS (test code 3.99 K/UL = 1066) ABSOLUTE LYMPHOCYTES (test code 3.00 K/UL = 1067) ABSOLUTE MONOCYTES (test code = 0.45 K/UL 1068) ABSOLUTE EOSINOPHILS (test code 0.14 K/UL = 1040) ABSOLUTE BASOPHILS (test code = 0.01 K/UL 1069) ABS IMMATURE GRANULOCYTES (test 0.03 K/UL code = 1020) ABS NUCLEATED RBCS (test code = 0.00 K/UL 40905) COMPREHENSIVE METABOLIC [id number] 00:00:00 Test Item Value Reference Range Interpretation Comments GLUCOSE (test code = 2217) 88 MG/DL BUN (test code = 2208) 11 MG/DL CREATININE (test code = 2214) 1.02 MG/DL eGFR (2020 CKD-EPI) (test code 67 ML/MIN/1.73 = 48281) CALC BUN/CREAT (test code = 11 RATIO 2235) SODIUM (test code = 2231) 145 MEQ/L POTASSIUM (test code = 2228) 4.4 MEQ/L CHLORIDE (test code = 2215) 111 MEQ/L CARBON DIOXIDE (test code = 26 MEQ/L 2205) CALCIUM (test code = 2209) 9.2 MG/DL PROTEIN, TOTAL (test code = 6.7 G/DL 222) ALBUMIN (test code = 2201) 4.2 G/DL CALC GLOBULIN (test code = 2.5 G/DL 2240) CALC A/G RATIO (test code = 1.7 RATIO 2234) BILIRUBIN, TOTAL (test code = <0.2 MG/DL 2206) ALKALINE PHOSPHATASE (test 125 U/L code = 2204) AST (test code = 2218) 17 U/L ALT (test code = 2219) 16 U/L COMPREHENSIVE METABOLIC [id number] 00:00:00 Test Item Value Reference Range Interpretation Comments GLUCOSE (test code = 2217) 88 MG/DL BUN (test code = 2208) 11 MG/DL CREATININE (test code = 2214) 1.02 MG/DL eGFR (2020 CKD-EPI) (test code 67 ML/MIN/1.73 = 72897) CALC BUN/CREAT (test code = 11 RATIO 2235) SODIUM (test code = 2231) 145 MEQ/L POTASSIUM (test code = 2228) 4.4 MEQ/L CHLORIDE (test code = 2215) 111 MEQ/L CARBON DIOXIDE (test code = 26 MEQ/L 2205) CALCIUM (test code = 2209) 9.2 MG/DL PROTEIN, TOTAL (test code = 6.7 G/DL 2228) ALBUMIN (test code = 2201) 4.2 G/DL CALC GLOBULIN (test code = 2.5 G/DL 224) CALC A/G RATIO (test code = 1.7 RATIO 2234) BILIRUBIN, TOTAL (test code = <0.2 MG/DL 2206) ALKALINE PHOSPHATASE (test 125 U/L code = 2204) AST (test code = 2218) 17 U/L ALT (test code = 2219) 16 U/L LIPID [id number] 00:00:00 Test Item Value Reference Range Interpretation Comments CHOLESTEROL (test code = 2210) 227 MG/DL TRIGLYCERIDES (test code = 2232) 129 MG/DL HDL CHOLESTEROL (test code = 2220) 43 MG/DL CALC LDL CHOL (test code = 2237) 159 MG/DL RISK RATIO LDL/HDL (test code = 3.70 RATIO 2238) LIPID [id number] 00:00:00 Test Item Value Reference Range Interpretation Comments CHOLESTEROL (test code = 2210) 227 MG/DL TRIGLYCERIDES (test code = 2232) 129 MG/DL HDL CHOLESTEROL (test code = 2220) 43 MG/DL CALC LDL CHOL (test code = 2237) 159 MG/DL RISK RATIO LDL/HDL (test code = 3.70 RATIO 2238) [id number] 00:00:00 Test Item Value Reference Range Interpretation Comments TSH, THIRD GENERATION (test code 3.310 UIU/ML = 2821) [id number] 00:00:00 Test Item Value Reference Range Interpretation Comments TSH, THIRD GENERATION (test code 3.310 UIU/ML = 2821) [id number] 00:00:00 Test Item Value Reference Range Interpretation Comments TSH, THIRD GENERATION (test code 3.310 UIU/ML = 2821) CARBAMAZEPINE (TEGRETOL)2021-04-01 00:00:00 Test Item Value Reference Range Interpretation Comments CARBAMAZEPINE (TEGRETOL) (test code 3.4 UG/ML = 3006) CARBAMAZEPINE (TEGRETOL)2021-04-01 00:00:00 Test Item Value Reference Range Interpretation Comments CARBAMAZEPINE (TEGRETOL) (test code 3.4 UG/ML = 3006) CARBAMAZEPINE (TEGRETOL)2021-04-01 00:00:00 Test Item Value Reference Range Interpretation Comments CARBAMAZEPINE (TEGRETOL) (test code 3.4 UG/ML = 3006) HEMOGLOBIN [id number] 00:00:00 Test Item Value Reference Range Interpretation Comments HEMOGLOBIN A1c (test code = 97814) 5.3 % HEMOGLOBIN [id number] 00:00:00 Test Item Value Reference Range Interpretation Comments HEMOGLOBIN A1c (test code = 42397) 5.3 % HEMOGLOBIN [id number] 00:00:00 Test Item Value Reference Range Interpretation Comments HEMOGLOBIN A1c (test code = 85532) 5.3 % CBC W/AUTO [id number] 00:00:00 Test Item Value Reference Range Interpretation Comments WBC (test code = 1001) 7.6 K/UL RBC (test code = 1002) 4.45 M/UL HEMOGLOBIN (test code = 1003) 15.1 G/DL HEMATOCRIT (test code = 1004) 43.5 % MCV (test code = 1005) 97.8 fL MCH (test code = 1006) 33.9 PG MCHC (test code = 1007) 34.7 G/DL RDW (test code = 1038) 12.0 % NEUTROPHILS (test code = 1008) 52.4 % LYMPHOCYTES (test code = 1010) 39.4 % MONOCYTES (test code = 1011) 5.9 % EOSINOPHILS (test code = 1012) 1.8 % BASOPHILS (test code = 1013) 0.1 % IMMATURE GRANYLOCYTES (test 0.4 % code = 1036) NUCLEATED RBCS (test code = 0.0 /100WBC'S 1065) PLATELET COUNT (test code = 227 K/UL 1015) ABSOLUTE NEUTROPHILS (test code 3.99 K/UL = 1066) ABSOLUTE LYMPHOCYTES (test code 3.00 K/UL = 1067) ABSOLUTE MONOCYTES (test code = 0.45 K/UL 1068) ABSOLUTE EOSINOPHILS (test code 0.14 K/UL = 1040) ABSOLUTE BASOPHILS (test code = 0.01 K/UL 1069) ABS IMMATURE GRANULOCYTES (test 0.03 K/UL code = 1020) ABS NUCLEATED RBCS (test code = 0.00 K/UL 54874) CBC W/AUTO [id number] 00:00:00 Test Item Value Reference Range Interpretation Comments WBC (test code = 1001) 7.6 K/UL RBC (test code = 1002) 4.45 M/UL HEMOGLOBIN (test code = 1003) 15.1 G/DL HEMATOCRIT (test code = 1004) 43.5 % MCV (test code = 1005) 97.8 fL MCH (test code = 1006) 33.9 PG MCHC (test code = 1007) 34.7 G/DL RDW (test code = 1038) 12.0 % NEUTROPHILS (test code = 1008) 52.4 % LYMPHOCYTES (test code = 1010) 39.4 % MONOCYTES (test code = 1011) 5.9 % EOSINOPHILS (test code = 1012) 1.8 % BASOPHILS (test code = 1013) 0.1 % IMMATURE GRANYLOCYTES (test 0.4 % code = 1036) NUCLEATED RBCS (test code = 0.0 /100WBC'S 1065) PLATELET COUNT (test code = 227 K/UL 1015) ABSOLUTE NEUTROPHILS (test code 3.99 K/UL = 1066) ABSOLUTE LYMPHOCYTES (test code 3.00 K/UL = 1067) ABSOLUTE MONOCYTES (test code = 0.45 K/UL 1068) ABSOLUTE EOSINOPHILS (test code 0.14 K/UL = 1040) ABSOLUTE BASOPHILS (test code = 0.01 K/UL 1069) ABS IMMATURE GRANULOCYTES (test 0.03 K/UL code = 1020) ABS NUCLEATED RBCS (test code = 0.00 K/UL 38717) CBC W/AUTO [id number] 00:00:00 Test Item Value Reference Range Interpretation Comments WBC (test code = 1001) 7.6 K/UL RBC (test code = 1002) 4.45 M/UL HEMOGLOBIN (test code = 1003) 15.1 G/DL HEMATOCRIT (test code = 1004) 43.5 % MCV (test code = 1005) 97.8 fL MCH (test code = 1006) 33.9 PG MCHC (test code = 1007) 34.7 G/DL RDW (test code = 1038) 12.0 % NEUTROPHILS (test code = 1008) 52.4 % LYMPHOCYTES (test code = 1010) 39.4 % MONOCYTES (test code = 1011) 5.9 % EOSINOPHILS (test code = 1012) 1.8 % BASOPHILS (test code = 1013) 0.1 % IMMATURE GRANYLOCYTES (test 0.4 % code = 1036) NUCLEATED RBCS (test code = 0.0 /100WBC'S 1065) PLATELET COUNT (test code = 227 K/UL 1015) ABSOLUTE NEUTROPHILS (test code 3.99 K/UL = 1066) ABSOLUTE LYMPHOCYTES (test code 3.00 K/UL = 1067) ABSOLUTE MONOCYTES (test code = 0.45 K/UL 1068) ABSOLUTE EOSINOPHILS (test code 0.14 K/UL = 1040) ABSOLUTE BASOPHILS (test code = 0.01 K/UL 1069) ABS IMMATURE GRANULOCYTES (test 0.03 K/UL code = 1020) ABS NUCLEATED RBCS (test code = 0.00 K/UL 23537) COMPREHENSIVE METABOLIC [id number] 00:00:00 Test Item Value Reference Range Interpretation Comments GLUCOSE (test code = 2217) 88 MG/DL BUN (test code = 2208) 11 MG/DL CREATININE (test code = 2214) 1.02 MG/DL eGFR (2020 CKD-EPI) (test code 67 ML/MIN/1.73 = 34486) CALC BUN/CREAT (test code = 11 RATIO 2235) SODIUM (test code = 2231) 145 MEQ/L POTASSIUM (test code = 2228) 4.4 MEQ/L CHLORIDE (test code = 2215) 111 MEQ/L CARBON DIOXIDE (test code = 26 MEQ/L 2205) CALCIUM (test code = 2209) 9.2 MG/DL PROTEIN, TOTAL (test code = 6.7 G/DL 2228) ALBUMIN (test code = 2201) 4.2 G/DL CALC GLOBULIN (test code = 2.5 G/DL 2240) CALC A/G RATIO (test code = 1.7 RATIO 2234) BILIRUBIN, TOTAL (test code = <0.2 MG/DL 2206) ALKALINE PHOSPHATASE (test 125 U/L code = 2204) AST (test code = 2218) 17 U/L ALT (test code = 2219) 16 U/L COMPREHENSIVE METABOLIC [id number] 00:00:00 Test Item Value Reference Range Interpretation Comments GLUCOSE (test code = 2217) 88 MG/DL BUN (test code = 2208) 11 MG/DL CREATININE (test code = 2214) 1.02 MG/DL eGFR (2020 CKD-EPI) (test code 67 ML/MIN/1.73 = 57074) CALC BUN/CREAT (test code = 11 RATIO 2235) SODIUM (test code = 2231) 145 MEQ/L POTASSIUM (test code = 2228) 4.4 MEQ/L CHLORIDE (test code = 2215) 111 MEQ/L CARBON DIOXIDE (test code = 26 MEQ/L 2205) CALCIUM (test code = 2209) 9.2 MG/DL PROTEIN, TOTAL (test code = 6.7 G/DL 2228) ALBUMIN (test code = 2201) 4.2 G/DL CALC GLOBULIN (test code = 2.5 G/DL 2239) CALC A/G RATIO (test code = 1.7 RATIO 2233) BILIRUBIN, TOTAL (test code = <0.2 MG/DL 2206) ALKALINE PHOSPHATASE (test 125 U/L code = 2204) AST (test code = 2218) 17 U/L ALT (test code = 2219) 16 U/L LIPID [id number] 00:00:00 Test Item Value Reference Range Interpretation Comments CHOLESTEROL (test code = 2210) 227 MG/DL TRIGLYCERIDES (test code = 2232) 129 MG/DL HDL CHOLESTEROL (test code = 2220) 43 MG/DL CALC LDL CHOL (test code = 2237) 159 MG/DL RISK RATIO LDL/HDL (test code = 3.70 RATIO 2238) LIPID [id number] 00:00:00 Test Item Value Reference Range Interpretation Comments CHOLESTEROL (test code = 2210) 227 MG/DL TRIGLYCERIDES (test code = 2232) 129 MG/DL HDL CHOLESTEROL (test code = 2220) 43 MG/DL CALC LDL CHOL (test code = 2237) 159 MG/DL RISK RATIO LDL/HDL (test code = 3.70 RATIO 2238) [id number] 00:00:00 Test Item Value Reference Range Interpretation Comments TSH, THIRD GENERATION (test code 3.310 UIU/ML = 2821) [id number] 00:00:00 Test Item Value Reference Range Interpretation Comments TSH, THIRD GENERATION (test code 3.310 UIU/ML = 2821) [id number] 00:00:00 Test Item Value Reference Range Interpretation Comments TSH, THIRD GENERATION (test code 3.310 UIU/ML = 2821) CARBAMAZEPINE (TEGRETOL)2021-04-01 00:00:00 Test Item Value Reference Range Interpretation Comments CARBAMAZEPINE (TEGRETOL) (test code 3.4 UG/ML = 3006) CARBAMAZEPINE (TEGRETOL)2021-04-01 00:00:00 Test Item Value Reference Range Interpretation Comments CARBAMAZEPINE (TEGRETOL) (test code 3.4 UG/ML = 3006) CARBAMAZEPINE (TEGRETOL)2021-04-01 00:00:00 Test Item Value Reference Range Interpretation Comments CARBAMAZEPINE (TEGRETOL) (test code 3.4 UG/ML = 3006) HEMOGLOBIN [id number] 00:00:00 Test Item Value Reference Range Interpretation Comments HEMOGLOBIN A1c (test code = 28344) 5.3 % HEMOGLOBIN [id number] 00:00:00 Test Item Value Reference Range Interpretation Comments HEMOGLOBIN A1c (test code = 06139) 5.3 % HEMOGLOBIN [id number] 00:00:00 Test Item Value Reference Range Interpretation Comments HEMOGLOBIN A1c (test code = 75089) 5.3 % CBC W/AUTO [id number] 00:00:00 Test Item Value Reference Range Interpretation Comments WBC (test code = 1001) 7.6 K/UL RBC (test code = 1002) 4.45 M/UL HEMOGLOBIN (test code = 1003) 15.1 G/DL HEMATOCRIT (test code = 1004) 43.5 % MCV (test code = 1005) 97.8 fL MCH (test code = 1006) 33.9 PG MCHC (test code = 1007) 34.7 G/DL RDW (test code = 1038) 12.0 % NEUTROPHILS (test code = 1008) 52.4 % LYMPHOCYTES (test code = 1010) 39.4 % MONOCYTES (test code = 1011) 5.9 % EOSINOPHILS (test code = 1012) 1.8 % BASOPHILS (test code = 1013) 0.1 % IMMATURE GRANYLOCYTES (test 0.4 % code = 1036) NUCLEATED RBCS (test code = 0.0 /100WBC'S 1065) PLATELET COUNT (test code = 227 K/UL 1015) ABSOLUTE NEUTROPHILS (test code 3.99 K/UL = 1066) ABSOLUTE LYMPHOCYTES (test code 3.00 K/UL = 1067) ABSOLUTE MONOCYTES (test code = 0.45 K/UL 1068) ABSOLUTE EOSINOPHILS (test code 0.14 K/UL = 1040) ABSOLUTE BASOPHILS (test code = 0.01 K/UL 1069) ABS IMMATURE GRANULOCYTES (test 0.03 K/UL code = 1020) ABS NUCLEATED RBCS (test code = 0.00 K/UL 32331) CBC W/AUTO [id number] 00:00:00 Test Item Value Reference Range Interpretation Comments WBC (test code = 1001) 7.6 K/UL RBC (test code = 1002) 4.45 M/UL HEMOGLOBIN (test code = 1003) 15.1 G/DL HEMATOCRIT (test code = 1004) 43.5 % MCV (test code = 1005) 97.8 fL MCH (test code = 1006) 33.9 PG MCHC (test code = 1007) 34.7 G/DL RDW (test code = 1038) 12.0 % NEUTROPHILS (test code = 1008) 52.4 % LYMPHOCYTES (test code = 1010) 39.4 % MONOCYTES (test code = 1011) 5.9 % EOSINOPHILS (test code = 1012) 1.8 % BASOPHILS (test code = 1013) 0.1 % IMMATURE GRANYLOCYTES (test 0.4 % code = 1036) NUCLEATED RBCS (test code = 0.0 /100WBC'S 1065) PLATELET COUNT (test code = 227 K/UL 1015) ABSOLUTE NEUTROPHILS (test code 3.99 K/UL = 1066) ABSOLUTE LYMPHOCYTES (test code 3.00 K/UL = 1067) ABSOLUTE MONOCYTES (test code = 0.45 K/UL 1068) ABSOLUTE EOSINOPHILS (test code 0.14 K/UL = 1040) ABSOLUTE BASOPHILS (test code = 0.01 K/UL 1069) ABS IMMATURE GRANULOCYTES (test 0.03 K/UL code = 1020) ABS NUCLEATED RBCS (test code = 0.00 K/UL 59325) CBC W/AUTO [id number] 00:00:00 Test Item Value Reference Range Interpretation Comments WBC (test code = 1001) 7.6 K/UL RBC (test code = 1002) 4.45 M/UL HEMOGLOBIN (test code = 1003) 15.1 G/DL HEMATOCRIT (test code = 1004) 43.5 % MCV (test code = 1005) 97.8 fL MCH (test code = 1006) 33.9 PG MCHC (test code = 1007) 34.7 G/DL RDW (test code = 1038) 12.0 % NEUTROPHILS (test code = 1008) 52.4 % LYMPHOCYTES (test code = 1010) 39.4 % MONOCYTES (test code = 1011) 5.9 % EOSINOPHILS (test code = 1012) 1.8 % BASOPHILS (test code = 1013) 0.1 % IMMATURE GRANYLOCYTES (test 0.4 % code = 1036) NUCLEATED RBCS (test code = 0.0 /100WBC'S 1065) PLATELET COUNT (test code = 227 K/UL 1015) ABSOLUTE NEUTROPHILS (test code 3.99 K/UL = 1066) ABSOLUTE LYMPHOCYTES (test code 3.00 K/UL = 1067) ABSOLUTE MONOCYTES (test code = 0.45 K/UL 1068) ABSOLUTE EOSINOPHILS (test code 0.14 K/UL = 1040) ABSOLUTE BASOPHILS (test code = 0.01 K/UL 1069) ABS IMMATURE GRANULOCYTES (test 0.03 K/UL code = 1020) ABS NUCLEATED RBCS (test code = 0.00 K/UL 93468) COMPREHENSIVE METABOLIC [id number] 00:00:00 Test Item Value Reference Range Interpretation Comments GLUCOSE (test code = 2217) 88 MG/DL BUN (test code = 2208) 11 MG/DL CREATININE (test code = 2214) 1.02 MG/DL eGFR (2020 CKD-EPI) (test code 67 ML/MIN/1.73 = 57481) CALC BUN/CREAT (test code = 11 RATIO 2235) SODIUM (test code = 2231) 145 MEQ/L POTASSIUM (test code = 2228) 4.4 MEQ/L CHLORIDE (test code = 2215) 111 MEQ/L CARBON DIOXIDE (test code = 26 MEQ/L 2205) CALCIUM (test code = 2209) 9.2 MG/DL PROTEIN, TOTAL (test code = 6.7 G/DL 2228) ALBUMIN (test code = 2201) 4.2 G/DL CALC GLOBULIN (test code = 2.5 G/DL 2240) CALC A/G RATIO (test code = 1.7 RATIO 2234) BILIRUBIN, TOTAL (test code = <0.2 MG/DL 2206) ALKALINE PHOSPHATASE (test 125 U/L code = 2204) AST (test code = 2218) 17 U/L ALT (test code = 2219) 16 U/L COMPREHENSIVE METABOLIC [id number] 00:00:00 Test Item Value Reference Range Interpretation Comments GLUCOSE (test code = 2217) 88 MG/DL BUN (test code = 2208) 11 MG/DL CREATININE (test code = 2214) 1.02 MG/DL eGFR (2020 CKD-EPI) (test code 67 ML/MIN/1.73 = 50959) CALC BUN/CREAT (test code = 11 RATIO 2235) SODIUM (test code = 2231) 145 MEQ/L POTASSIUM (test code = 2228) 4.4 MEQ/L CHLORIDE (test code = 2215) 111 MEQ/L CARBON DIOXIDE (test code = 26 MEQ/L 2205) CALCIUM (test code = 2209) 9.2 MG/DL PROTEIN, TOTAL (test code = 6.7 G/DL 2228) ALBUMIN (test code = 2201) 4.2 G/DL CALC GLOBULIN (test code = 2.5 G/DL 2240) CALC A/G RATIO (test code = 1.7 RATIO 2234) BILIRUBIN, TOTAL (test code = <0.2 MG/DL 2206) ALKALINE PHOSPHATASE (test 125 U/L code = 2204) AST (test code = 2218) 17 U/L ALT (test code = 2219) 16 U/L LIPID [id number] 00:00:00 Test Item Value Reference Range Interpretation Comments CHOLESTEROL (test code = 2210) 227 MG/DL TRIGLYCERIDES (test code = 2232) 129 MG/DL HDL CHOLESTEROL (test code = 2220) 43 MG/DL CALC LDL CHOL (test code = 2237) 159 MG/DL RISK RATIO LDL/HDL (test code = 3.70 RATIO 2238) LIPID [id number] 00:00:00 Test Item Value Reference Range Interpretation Comments CHOLESTEROL (test code = 2210) 227 MG/DL TRIGLYCERIDES (test code = 2232) 129 MG/DL HDL CHOLESTEROL (test code = 2220) 43 MG/DL CALC LDL CHOL (test code = 2237) 159 MG/DL RISK RATIO LDL/HDL (test code = 3.70 RATIO 2238) [id number] 00:00:00 Test Item Value Reference Range Interpretation Comments TSH, THIRD GENERATION (test code 3.310 UIU/ML = 2821) [id number] 00:00:00 Test Item Value Reference Range Interpretation Comments TSH, THIRD GENERATION (test code 3.310 UIU/ML = 2821) [id number] 00:00:00 Test Item Value Reference Range Interpretation Comments TSH, THIRD GENERATION (test code 3.310 UIU/ML = 2821) CARBAMAZEPINE (TEGRETOL)2021-04-01 00:00:00 Test Item Value Reference Range Interpretation Comments CARBAMAZEPINE (TEGRETOL) (test code 3.4 UG/ML = 3006) CARBAMAZEPINE (TEGRETOL)2021-04-01 00:00:00 Test Item Value Reference Range Interpretation Comments CARBAMAZEPINE (TEGRETOL) (test code 3.4 UG/ML = 3006) CBC W/AUTO [id number] 00:00:00 Test Item Value Reference Range Interpretation Comments WBC (test code = 1001) 8.7 K/UL RBC (test code = 1002) 4.50 M/UL HEMOGLOBIN (test code = 1003) 14.7 G/DL HEMATOCRIT (test code = 1004) 44.2 % MCV (test code = 1005) 98.2 fL MCH (test code = 1006) 32.7 PG MCHC (test code = 1007) 33.3 G/DL RDW (test code = 1038) 11.9 % NEUTROPHILS (test code = 1008) 56.9 % LYMPHOCYTES (test code = 1010) 33.6 % MONOCYTES (test code = 1011) 7.5 % EOSINOPHILS (test code = 1012) 1.4 % BASOPHILS (test code = 1013) 0.1 % IMMATURE GRANULOCYTES (test 0.5 % code = 1036) NUCLEATED RBCS (test code = 0.0 /100WBC'S 1065) PLATELET COUNT (test code = 240 K/UL 1015) ABSOLUTE NEUTROPHILS (test code 4.93 K/UL = 1066) ABSOLUTE LYMPHOCYTES (test code 2.91 K/UL = 1067) ABSOLUTE MONOCYTES (test code = 0.65 K/UL 1068) ABSOLUTE EOSINOPHILS (test code 0.12 K/UL = 1040) ABSOLUTE BASOPHILS (test code = 0.01 K/UL 1069) ABS IMMATURE GRANULOCYTES (test 0.04 K/UL code = 1020) ABS NUCLEATED RBCS (test code = 0.00 K/UL 67452) HEMOGLOBIN [id number] 00:00:00 Test Item Value Reference Range Interpretation Comments HEMOGLOBIN A1c (test code = 55782) 5.4 % HEMOGLOBIN [id number] 00:00:00 Test Item Value Reference Range Interpretation Comments HEMOGLOBIN A1c (test code = 55863) 5.4 % HEMOGLOBIN [id number] 00:00:00 Test Item Value Reference Range Interpretation Comments HEMOGLOBIN A1c (test code = 57084) 5.4 % LIPID [id number] 00:00:00 Test Item Value Reference Range Interpretation Comments CHOLESTEROL (test code = 2210) 207 MG/DL TRIGLYCERIDES (test code = 2232) 125 MG/DL HDL CHOLESTEROL (test code = 2220) 39 MG/DL CALC LDL CHOL (test code = 2237) 143 MG/DL RISK RATIO LDL/HDL (test code = 3.67 RATIO 2238) LIPID [id number] 00:00:00 Test Item Value Reference Range Interpretation Comments CHOLESTEROL (test code = 2210) 207 MG/DL TRIGLYCERIDES (test code = 2232) 125 MG/DL HDL CHOLESTEROL (test code = 2220) 39 MG/DL CALC LDL CHOL (test code = 2237) 143 MG/DL RISK RATIO LDL/HDL (test code = 3.67 RATIO 2238) COMPREHENSIVE METABOLIC [id number] 00:00:00 Test Item Value Reference Range Interpretation Comments GLUCOSE (test code = 2217) 85 MG/DL BUN (test code = 2208) 11 MG/DL CREATININE (test code = 2214) 1.07 MG/DL eGFR AMER. (test code 71 ML/MIN/1.73 = 56141) eGFR NON- AMER. (test 61 ML/MIN/1.73 code = 65405) CALC BUN/CREAT (test code = 10 RATIO 2235) SODIUM (test code = 2231) 142 MEQ/L POTASSIUM (test code = 2228) 4.2 MEQ/L CHLORIDE (test code = 2215) 110 MEQ/L CARBON DIOXIDE (test code = 24 MEQ/L 2205) CALCIUM (test code = 2209) 8.9 MG/DL PROTEIN, TOTAL (test code = 6.2 G/DL 2228) ALBUMIN (test code = 2201) 4.0 G/DL CALC GLOBULIN (test code = 2.2 G/DL 2240) CALC A/G RATIO (test code = 1.8 RATIO 2234) BILIRUBIN, TOTAL (test code = 0.2 MG/DL 2207) ALKALINE PHOSPHATASE (test 93 U/L code = 2204) AST (test code = 2218) 18 U/L ALT (test code = 2219) 10 U/L COMPREHENSIVE METABOLIC [id number] 00:00:00 Test Item Value Reference Range Interpretation Comments GLUCOSE (test code = 2217) 85 MG/DL BUN (test code = 2208) 11 MG/DL CREATININE (test code = 2214) 1.07 MG/DL eGFR AMER. (test code 71 ML/MIN/1.73 = 87953) eGFR NON- AMER. (test 61 ML/MIN/1.73 code = 01414) CALC BUN/CREAT (test code = 10 RATIO 2235) SODIUM (test code = 2231) 142 MEQ/L POTASSIUM (test code = 2228) 4.2 MEQ/L CHLORIDE (test code = 2215) 110 MEQ/L CARBON DIOXIDE (test code = 24 MEQ/L 2205) CALCIUM (test code = 2209) 8.9 MG/DL PROTEIN, TOTAL (test code = 6.2 G/DL 2228) ALBUMIN (test code = 2201) 4.0 G/DL CALC GLOBULIN (test code = 2.2 G/DL 2240) CALC A/G RATIO (test code = 1.8 RATIO 2234) BILIRUBIN, TOTAL (test code = 0.2 MG/DL 7) ALKALINE PHOSPHATASE (test 93 U/L code = 2204) AST (test code = 2218) 18 U/L ALT (test code = 2219) 10 U/L [id number] 00:00:00 Test Item Value Reference Range Interpretation Comments TSH, THIRD GENERATION (test code 2.470 UIU/ML = 2821) [id number] 00:00:00 Test Item Value Reference Range Interpretation Comments TSH, THIRD GENERATION (test code 2.470 UIU/ML = 2821) [id number] 00:00:00 Test Item Value Reference Range Interpretation Comments TSH, THIRD GENERATION (test code 2.470 UIU/ML = 2821) CBC W/AUTO [id number] 00:00:00 Test Item Value Reference Range Interpretation Comments WBC (test code = 1001) 8.7 K/UL RBC (test code = 1002) 4.50 M/UL HEMOGLOBIN (test code = 1003) 14.7 G/DL HEMATOCRIT (test code = 1004) 44.2 % MCV (test code = 1005) 98.2 fL MCH (test code = 1006) 32.7 PG MCHC (test code = 1007) 33.3 G/DL RDW (test code = 1038) 11.9 % NEUTROPHILS (test code = 1008) 56.9 % LYMPHOCYTES (test code = 1010) 33.6 % MONOCYTES (test code = 1011) 7.5 % EOSINOPHILS (test code = 1012) 1.4 % BASOPHILS (test code = 1013) 0.1 % IMMATURE GRANULOCYTES (test 0.5 % code = 1036) NUCLEATED RBCS (test code = 0.0 /100WBC'S 1065) PLATELET COUNT (test code = 240 K/UL 1015) ABSOLUTE NEUTROPHILS (test code 4.93 K/UL = 1066) ABSOLUTE LYMPHOCYTES (test code 2.91 K/UL = 1067) ABSOLUTE MONOCYTES (test code = 0.65 K/UL 1068) ABSOLUTE EOSINOPHILS (test code 0.12 K/UL = 1040) ABSOLUTE BASOPHILS (test code = 0.01 K/UL 1069) ABS IMMATURE GRANULOCYTES (test 0.04 K/UL code = 1020) ABS NUCLEATED RBCS (test code = 0.00 K/UL 13475) CBC W/AUTO [id number] 00:00:00 Test Item Value Reference Range Interpretation Comments WBC (test code = 1001) 8.7 K/UL RBC (test code = 1002) 4.50 M/UL HEMOGLOBIN (test code = 1003) 14.7 G/DL HEMATOCRIT (test code = 1004) 44.2 % MCV (test code = 1005) 98.2 fL MCH (test code = 1006) 32.7 PG MCHC (test code = 1007) 33.3 G/DL RDW (test code = 1038) 11.9 % NEUTROPHILS (test code = 1008) 56.9 % LYMPHOCYTES (test code = 1010) 33.6 % MONOCYTES (test code = 1011) 7.5 % EOSINOPHILS (test code = 1012) 1.4 % BASOPHILS (test code = 1013) 0.1 % IMMATURE GRANULOCYTES (test 0.5 % code = 1036) NUCLEATED RBCS (test code = 0.0 /100WBC'S 1065) PLATELET COUNT (test code = 240 K/UL 1015) ABSOLUTE NEUTROPHILS (test code 4.93 K/UL = 1066) ABSOLUTE LYMPHOCYTES (test code 2.91 K/UL = 1067) ABSOLUTE MONOCYTES (test code = 0.65 K/UL 1068) ABSOLUTE EOSINOPHILS (test code 0.12 K/UL = 1040) ABSOLUTE BASOPHILS (test code = 0.01 K/UL 1069) ABS IMMATURE GRANULOCYTES (test 0.04 K/UL code = 1020) ABS NUCLEATED RBCS (test code = 0.00 K/UL 48843) CBC W/AUTO [id number] 00:00:00 Test Item Value Reference Range Interpretation Comments WBC (test code = 1001) 8.7 K/UL RBC (test code = 1002) 4.50 M/UL HEMOGLOBIN (test code = 1003) 14.7 G/DL HEMATOCRIT (test code = 1004) 44.2 % MCV (test code = 1005) 98.2 fL MCH (test code = 1006) 32.7 PG MCHC (test code = 1007) 33.3 G/DL RDW (test code = 1038) 11.9 % NEUTROPHILS (test code = 1008) 56.9 % LYMPHOCYTES (test code = 1010) 33.6 % MONOCYTES (test code = 1011) 7.5 % EOSINOPHILS (test code = 1012) 1.4 % BASOPHILS (test code = 1013) 0.1 % IMMATURE GRANULOCYTES (test 0.5 % code = 1036) NUCLEATED RBCS (test code = 0.0 /100WBC'S 1065) PLATELET COUNT (test code = 240 K/UL 1015) ABSOLUTE NEUTROPHILS (test code 4.93 K/UL = 1066) ABSOLUTE LYMPHOCYTES (test code 2.91 K/UL = 1067) ABSOLUTE MONOCYTES (test code = 0.65 K/UL 1068) ABSOLUTE EOSINOPHILS (test code 0.12 K/UL = 1040) ABSOLUTE BASOPHILS (test code = 0.01 K/UL 1069) ABS IMMATURE GRANULOCYTES (test 0.04 K/UL code = 1020) ABS NUCLEATED RBCS (test code = 0.00 K/UL 08948) HEMOGLOBIN [id number] 00:00:00 Test Item Value Reference Range Interpretation Comments HEMOGLOBIN A1c (test code = 15561) 5.4 % HEMOGLOBIN [id number] 00:00:00 Test Item Value Reference Range Interpretation Comments HEMOGLOBIN A1c (test code = 14950) 5.4 % HEMOGLOBIN [id number] 00:00:00 Test Item Value Reference Range Interpretation Comments HEMOGLOBIN A1c (test code = 09316) 5.4 % LIPID [id number] 00:00:00 Test Item Value Reference Range Interpretation Comments CHOLESTEROL (test code = 2210) 207 MG/DL TRIGLYCERIDES (test code = 2232) 125 MG/DL HDL CHOLESTEROL (test code = 2220) 39 MG/DL CALC LDL CHOL (test code = 2237) 143 MG/DL RISK RATIO LDL/HDL (test code = 3.67 RATIO 2238) LIPID [id number] 00:00:00 Test Item Value Reference Range Interpretation Comments CHOLESTEROL (test code = 2210) 207 MG/DL TRIGLYCERIDES (test code = 2232) 125 MG/DL HDL CHOLESTEROL (test code = 2220) 39 MG/DL CALC LDL CHOL (test code = 2237) 143 MG/DL RISK RATIO LDL/HDL (test code = 3.67 RATIO 2238) COMPREHENSIVE METABOLIC [id number] 00:00:00 Test Item Value Reference Range Interpretation Comments GLUCOSE (test code = 2217) 85 MG/DL BUN (test code = 2208) 11 MG/DL CREATININE (test code = 2214) 1.07 MG/DL eGFR AMER. (test code 71 ML/MIN/1.73 = 34218) eGFR NON- AMER. (test 61 ML/MIN/1.73 code = 31594) CALC BUN/CREAT (test code = 10 RATIO 2235) SODIUM (test code = 2231) 142 MEQ/L POTASSIUM (test code = 2228) 4.2 MEQ/L CHLORIDE (test code = 2215) 110 MEQ/L CARBON DIOXIDE (test code = 24 MEQ/L 2205) CALCIUM (test code = 2209) 8.9 MG/DL PROTEIN, TOTAL (test code = 6.2 G/DL 222) ALBUMIN (test code = 2201) 4.0 G/DL CALC GLOBULIN (test code = 2.2 G/DL 2240) CALC A/G RATIO (test code = 1.8 RATIO 2234) BILIRUBIN, TOTAL (test code = 0.2 MG/DL 220) ALKALINE PHOSPHATASE (test 93 U/L code = 2204) AST (test code = 2218) 18 U/L ALT (test code = 2219) 10 U/L COMPREHENSIVE METABOLIC [id number] 00:00:00 Test Item Value Reference Range Interpretation Comments GLUCOSE (test code = 2217) 85 MG/DL BUN (test code = 2208) 11 MG/DL CREATININE (test code = 2214) 1.07 MG/DL eGFR AMER. (test code 71 ML/MIN/1.73 = 56299) eGFR NON- AMER. (test 61 ML/MIN/1.73 code = 74692) CALC BUN/CREAT (test code = 10 RATIO 2235) SODIUM (test code = 2231) 142 MEQ/L POTASSIUM (test code = 2228) 4.2 MEQ/L CHLORIDE (test code = 2215) 110 MEQ/L CARBON DIOXIDE (test code = 24 MEQ/L 2206) CALCIUM (test code = 2209) 8.9 MG/DL PROTEIN, TOTAL (test code = 6.2 G/DL 2228) ALBUMIN (test code = 2201) 4.0 G/DL CALC GLOBULIN (test code = 2.2 G/DL 2240) CALC A/G RATIO (test code = 1.8 RATIO 2234) BILIRUBIN, TOTAL (test code = 0.2 MG/DL 2207) ALKALINE PHOSPHATASE (test 93 U/L code = 2204) AST (test code = 2218) 18 U/L ALT (test code = 2219) 10 U/L [id number] 00:00:00 Test Item Value Reference Range Interpretation Comments TSH, THIRD GENERATION (test code 2.470 UIU/ML = 2821) [id number] 00:00:00 Test Item Value Reference Range Interpretation Comments TSH, THIRD GENERATION (test code 2.470 UIU/ML = 2821) [id number] 00:00:00 Test Item Value Reference Range Interpretation Comments TSH, THIRD GENERATION (test code 2.470 UIU/ML = 2821) CBC W/AUTO [id number] 00:00:00 Test Item Value Reference Range Interpretation Comments WBC (test code = 1001) 8.7 K/UL RBC (test code = 1002) 4.50 M/UL HEMOGLOBIN (test code = 1003) 14.7 G/DL HEMATOCRIT (test code = 1004) 44.2 % MCV (test code = 1005) 98.2 fL MCH (test code = 1006) 32.7 PG MCHC (test code = 1007) 33.3 G/DL RDW (test code = 1038) 11.9 % NEUTROPHILS (test code = 1008) 56.9 % LYMPHOCYTES (test code = 1010) 33.6 % MONOCYTES (test code = 1011) 7.5 % EOSINOPHILS (test code = 1012) 1.4 % BASOPHILS (test code = 1013) 0.1 % IMMATURE GRANULOCYTES (test 0.5 % code = 1036) NUCLEATED RBCS (test code = 0.0 /100WBC'S 1065) PLATELET COUNT (test code = 240 K/UL 1015) ABSOLUTE NEUTROPHILS (test code 4.93 K/UL = 1066) ABSOLUTE LYMPHOCYTES (test code 2.91 K/UL = 1067) ABSOLUTE MONOCYTES (test code = 0.65 K/UL 1068) ABSOLUTE EOSINOPHILS (test code 0.12 K/UL = 1040) ABSOLUTE BASOPHILS (test code = 0.01 K/UL 1069) ABS IMMATURE GRANULOCYTES (test 0.04 K/UL code = 1020) ABS NUCLEATED RBCS (test code = 0.00 K/UL 62553) CBC W/AUTO [id number] 00:00:00 Test Item Value Reference Range Interpretation Comments WBC (test code = 1001) 8.7 K/UL RBC (test code = 1002) 4.50 M/UL HEMOGLOBIN (test code = 1003) 14.7 G/DL HEMATOCRIT (test code = 1004) 44.2 % MCV (test code = 1005) 98.2 fL MCH (test code = 1006) 32.7 PG MCHC (test code = 1007) 33.3 G/DL RDW (test code = 1038) 11.9 % NEUTROPHILS (test code = 1008) 56.9 % LYMPHOCYTES (test code = 1010) 33.6 % MONOCYTES (test code = 1011) 7.5 % EOSINOPHILS (test code = 1012) 1.4 % BASOPHILS (test code = 1013) 0.1 % IMMATURE GRANULOCYTES (test 0.5 % code = 1036) NUCLEATED RBCS (test code = 0.0 /100WBC'S 1065) PLATELET COUNT (test code = 240 K/UL 1015) ABSOLUTE NEUTROPHILS (test code 4.93 K/UL = 1066) ABSOLUTE LYMPHOCYTES (test code 2.91 K/UL = 1067) ABSOLUTE MONOCYTES (test code = 0.65 K/UL 1068) ABSOLUTE EOSINOPHILS (test code 0.12 K/UL = 1040) ABSOLUTE BASOPHILS (test code = 0.01 K/UL 1069) ABS IMMATURE GRANULOCYTES (test 0.04 K/UL code = 1020) ABS NUCLEATED RBCS (test code = 0.00 K/UL 70856) CBC W/AUTO [id number] 00:00:00 Test Item Value Reference Range Interpretation Comments WBC (test code = 1001) 8.7 K/UL RBC (test code = 1002) 4.50 M/UL HEMOGLOBIN (test code = 1003) 14.7 G/DL HEMATOCRIT (test code = 1004) 44.2 % MCV (test code = 1005) 98.2 fL MCH (test code = 1006) 32.7 PG MCHC (test code = 1007) 33.3 G/DL RDW (test code = 1038) 11.9 % NEUTROPHILS (test code = 1008) 56.9 % LYMPHOCYTES (test code = 1010) 33.6 % MONOCYTES (test code = 1011) 7.5 % EOSINOPHILS (test code = 1012) 1.4 % BASOPHILS (test code = 1013) 0.1 % IMMATURE GRANULOCYTES (test 0.5 % code = 1036) NUCLEATED RBCS (test code = 0.0 /100WBC'S 1065) PLATELET COUNT (test code = 240 K/UL 1015) ABSOLUTE NEUTROPHILS (test code 4.93 K/UL = 1066) ABSOLUTE LYMPHOCYTES (test code 2.91 K/UL = 1067) ABSOLUTE MONOCYTES (test code = 0.65 K/UL 1068) ABSOLUTE EOSINOPHILS (test code 0.12 K/UL = 1040) ABSOLUTE BASOPHILS (test code = 0.01 K/UL 1069) ABS IMMATURE GRANULOCYTES (test 0.04 K/UL code = 1020) ABS NUCLEATED RBCS (test code = 0.00 K/UL 07785) HEMOGLOBIN [id number] 00:00:00 Test Item Value Reference Range Interpretation Comments HEMOGLOBIN A1c (test code = 04447) 5.4 % HEMOGLOBIN [id number] 00:00:00 Test Item Value Reference Range Interpretation Comments HEMOGLOBIN A1c (test code = 20190) 5.4 % HEMOGLOBIN [id number] 00:00:00 Test Item Value Reference Range Interpretation Comments HEMOGLOBIN A1c (test code = 23920) 5.4 % LIPID [id number] 00:00:00 Test Item Value Reference Range Interpretation Comments CHOLESTEROL (test code = 2210) 207 MG/DL TRIGLYCERIDES (test code = 2232) 125 MG/DL HDL CHOLESTEROL (test code = 2220) 39 MG/DL CALC LDL CHOL (test code = 2237) 143 MG/DL RISK RATIO LDL/HDL (test code = 3.67 RATIO 2238) LIPID [id number] 00:00:00 Test Item Value Reference Range Interpretation Comments CHOLESTEROL (test code = 2210) 207 MG/DL TRIGLYCERIDES (test code = 2232) 125 MG/DL HDL CHOLESTEROL (test code = 2220) 39 MG/DL CALC LDL CHOL (test code = 2237) 143 MG/DL RISK RATIO LDL/HDL (test code = 3.67 RATIO 2238) COMPREHENSIVE METABOLIC [id number] 00:00:00 Test Item Value Reference Range Interpretation Comments GLUCOSE (test code = 2217) 85 MG/DL BUN (test code = 2208) 11 MG/DL CREATININE (test code = 2214) 1.07 MG/DL eGFR AMER. (test code 71 ML/MIN/1.73 = 94806) eGFR NON- AMER. (test 61 ML/MIN/1.73 code = 78685) CALC BUN/CREAT (test code = 10 RATIO 2235) SODIUM (test code = 2231) 142 MEQ/L POTASSIUM (test code = 2228) 4.2 MEQ/L CHLORIDE (test code = 2215) 110 MEQ/L CARBON DIOXIDE (test code = 24 MEQ/L 2205) CALCIUM (test code = 2209) 8.9 MG/DL PROTEIN, TOTAL (test code = 6.2 G/DL 2228) ALBUMIN (test code = 2201) 4.0 G/DL CALC GLOBULIN (test code = 2.2 G/DL 2240) CALC A/G RATIO (test code = 1.8 RATIO 2234) BILIRUBIN, TOTAL (test code = 0.2 MG/DL 2206) ALKALINE PHOSPHATASE (test 93 U/L code = 2204) AST (test code = 2218) 18 U/L ALT (test code = 2219) 10 U/L COMPREHENSIVE METABOLIC [id number] 00:00:00 Test Item Value Reference Range Interpretation Comments GLUCOSE (test code = 2217) 85 MG/DL BUN (test code = 2208) 11 MG/DL CREATININE (test code = 2214) 1.07 MG/DL eGFR AMER. (test code 71 ML/MIN/1.73 = 32668) eGFR NON- AMER. (test 61 ML/MIN/1.73 code = 14517) CALC BUN/CREAT (test code = 10 RATIO 2235) SODIUM (test code = 2231) 142 MEQ/L POTASSIUM (test code = 2228) 4.2 MEQ/L CHLORIDE (test code = 2215) 110 MEQ/L CARBON DIOXIDE (test code = 24 MEQ/L 2206) CALCIUM (test code = 2209) 8.9 MG/DL PROTEIN, TOTAL (test code = 6.2 G/DL 2228) ALBUMIN (test code = 2201) 4.0 G/DL CALC GLOBULIN (test code = 2.2 G/DL 2240) CALC A/G RATIO (test code = 1.8 RATIO 2234) BILIRUBIN, TOTAL (test code = 0.2 MG/DL 2206) ALKALINE PHOSPHATASE (test 93 U/L code = 2204) AST (test code = 2218) 18 U/L ALT (test code = 2219) 10 U/L [id number] 00:00:00 Test Item Value Reference Range Interpretation Comments TSH, THIRD GENERATION (test code 2.470 UIU/ML = 2821) [id number] 00:00:00 Test Item Value Reference Range Interpretation Comments TSH, THIRD GENERATION (test code 2.470 UIU/ML = 2821) [id number] 00:00:00 Test Item Value Reference Range Interpretation Comments TSH, THIRD GENERATION (test code 2.470 UIU/ML = 2821) CBC W/AUTO [id number] 00:00:00 Test Item Value Reference Range Interpretation Comments WBC (test code = 1001) 8.7 K/UL RBC (test code = 1002) 4.50 M/UL HEMOGLOBIN (test code = 1003) 14.7 G/DL HEMATOCRIT (test code = 1004) 44.2 % MCV (test code = 1005) 98.2 fL MCH (test code = 1006) 32.7 PG MCHC (test code = 1007) 33.3 G/DL RDW (test code = 1038) 11.9 % NEUTROPHILS (test code = 1008) 56.9 % LYMPHOCYTES (test code = 1010) 33.6 % MONOCYTES (test code = 1011) 7.5 % EOSINOPHILS (test code = 1012) 1.4 % BASOPHILS (test code = 1013) 0.1 % IMMATURE GRANULOCYTES (test 0.5 % code = 1036) NUCLEATED RBCS (test code = 0.0 /100WBC'S 1065) PLATELET COUNT (test code = 240 K/UL 1015) ABSOLUTE NEUTROPHILS (test code 4.93 K/UL = 1066) ABSOLUTE LYMPHOCYTES (test code 2.91 K/UL = 1067) ABSOLUTE MONOCYTES (test code = 0.65 K/UL 1068) ABSOLUTE EOSINOPHILS (test code 0.12 K/UL = 1040) ABSOLUTE BASOPHILS (test code = 0.01 K/UL 1069) ABS IMMATURE GRANULOCYTES (test 0.04 K/UL code = 1020) ABS NUCLEATED RBCS (test code = 0.00 K/UL 60541) CBC W/AUTO [id number] 00:00:00 Test Item Value Reference Range Interpretation Comments WBC (test code = 1001) 8.7 K/UL RBC (test code = 1002) 4.50 M/UL HEMOGLOBIN (test code = 1003) 14.7 G/DL HEMATOCRIT (test code = 1004) 44.2 % MCV (test code = 1005) 98.2 fL MCH (test code = 1006) 32.7 PG MCHC (test code = 1007) 33.3 G/DL RDW (test code = 1038) 11.9 % NEUTROPHILS (test code = 1008) 56.9 % LYMPHOCYTES (test code = 1010) 33.6 % MONOCYTES (test code = 1011) 7.5 % EOSINOPHILS (test code = 1012) 1.4 % BASOPHILS (test code = 1013) 0.1 % IMMATURE GRANULOCYTES (test 0.5 % code = 1036) NUCLEATED RBCS (test code = 0.0 /100WBC'S 1065) PLATELET COUNT (test code = 240 K/UL 1015) ABSOLUTE NEUTROPHILS (test code 4.93 K/UL = 1066) ABSOLUTE LYMPHOCYTES (test code 2.91 K/UL = 1067) ABSOLUTE MONOCYTES (test code = 0.65 K/UL 1068) ABSOLUTE EOSINOPHILS (test code 0.12 K/UL = 1040) ABSOLUTE BASOPHILS (test code = 0.01 K/UL 1069) ABS IMMATURE GRANULOCYTES (test 0.04 K/UL code = 1020) ABS NUCLEATED RBCS (test code = 0.00 K/UL 81475) CBC W/AUTO [id number] 00:00:00 Test Item Value Reference Range Interpretation Comments WBC (test code = 1001) 9.7 K/UL RBC (test code = 1002) 4.75 M/UL HEMOGLOBIN (test code = 1003) 15.8 G/DL HEMATOCRIT (test code = 1004) 45.8 % MCV (test code = 1005) 96.4 fL MCH (test code = 1006) 33.3 PG MCHC (test code = 1007) 34.5 G/DL RDW (test code = 1038) 12.9 % NEUTROPHILS (test code = 1008) 52.4 % LYMPHOCYTES (test code = 1010) 39.8 % MONOCYTES (test code = 1011) 6.9 % EOSINOPHILS (test code = 1012) 0.6 % BASOPHILS (test code = 1013) 0.3 % PLATELET COUNT (test code = 1015) 242 K/UL COMPREHENSIVE METABOLIC [id number] 00:00:00 Test Item Value Reference Range Interpretation Comments GLUCOSE (test code = 2217) 87 MG/DL BUN (test code = 2208) 12 MG/DL CREATININE (test code = 2214) 1.02 MG/DL eGFR AMER. (test code 76 ML/MIN/1.73 = 18707) eGFR NON- AMER. (test 65 ML/MIN/1.73 code = 41242) CALC BUN/CREAT (test code = 12 RATIO 2235) SODIUM (test code = 2231) 141 MEQ/L POTASSIUM (test code = 2228) 4.1 MEQ/L CHLORIDE (test code = 2215) 107 MEQ/L CARBON DIOXIDE (test code = 25 MEQ/L 2205) CALCIUM (test code = 2209) 9.3 MG/DL PROTEIN, TOTAL (test code = 6.6 G/DL 222) ALBUMIN (test code = 2201) 4.3 G/DL CALC GLOBULIN (test code = 2.3 G/DL 2240) CALC A/G RATIO (test code = 1.9 RATIO 2234) BILIRUBIN, TOTAL (test code = <0.2 MG/DL 2206) ALKALINE PHOSPHATASE (test 124 U/L code = 2204) AST (test code = 2218) 19 U/L ALT (test code = 2219) 17 U/L COMPREHENSIVE METABOLIC [id number] 00:00:00 Test Item Value Reference Range Interpretation Comments GLUCOSE (test code = 2217) 87 MG/DL BUN (test code = 2208) 12 MG/DL CREATININE (test code = 2214) 1.02 MG/DL eGFR AMER. (test code 76 ML/MIN/1.73 = 76895) eGFR NON- AMER. (test 65 ML/MIN/1.73 code = 13828) CALC BUN/CREAT (test code = 12 RATIO 2235) SODIUM (test code = 2231) 141 MEQ/L POTASSIUM (test code = 2228) 4.1 MEQ/L CHLORIDE (test code = 2215) 107 MEQ/L CARBON DIOXIDE (test code = 25 MEQ/L 2205) CALCIUM (test code = 2209) 9.3 MG/DL PROTEIN, TOTAL (test code = 6.6 G/DL 2228) ALBUMIN (test code = 2201) 4.3 G/DL CALC GLOBULIN (test code = 2.3 G/DL 2240) CALC A/G RATIO (test code = 1.9 RATIO 2234) BILIRUBIN, TOTAL (test code = <0.2 MG/DL 2206) ALKALINE PHOSPHATASE (test 124 U/L code = 2204) AST (test code = 2218) 19 U/L ALT (test code = 2219) 17 U/L CARBAMAZEPINE (TEGRETOL)2019-12-06 00:00:00 Test Item Value Reference Range Interpretation Comments CARBAMAZEPINE (TEGRETOL) (test code 5.4 UG/ML = 3006) CARBAMAZEPINE (TEGRETOL)2019-12-06 00:00:00 Test Item Value Reference Range Interpretation Comments CARBAMAZEPINE (TEGRETOL) (test code 5.4 UG/ML = 3006) CARBAMAZEPINE (TEGRETOL)2019-12-06 00:00:00 Test Item Value Reference Range Interpretation Comments CARBAMAZEPINE (TEGRETOL) (test code 5.4 UG/ML = 3006) CBC W/AUTO [id number] 00:00:00 Test Item Value Reference Range Interpretation Comments WBC (test code = 1001) 9.7 K/UL RBC (test code = 1002) 4.75 M/UL HEMOGLOBIN (test code = 1003) 15.8 G/DL HEMATOCRIT (test code = 1004) 45.8 % MCV (test code = 1005) 96.4 fL MCH (test code = 1006) 33.3 PG MCHC (test code = 1007) 34.5 G/DL RDW (test code = 1038) 12.9 % NEUTROPHILS (test code = 1008) 52.4 % LYMPHOCYTES (test code = 1010) 39.8 % MONOCYTES (test code = 1011) 6.9 % EOSINOPHILS (test code = 1012) 0.6 % BASOPHILS (test code = 1013) 0.3 % PLATELET COUNT (test code = 1015) 242 K/UL CBC W/AUTO [id number] 00:00:00 Test Item Value Reference Range Interpretation Comments WBC (test code = 1001) 9.7 K/UL RBC (test code = 1002) 4.75 M/UL HEMOGLOBIN (test code = 1003) 15.8 G/DL HEMATOCRIT (test code = 1004) 45.8 % MCV (test code = 1005) 96.4 fL MCH (test code = 1006) 33.3 PG MCHC (test code = 1007) 34.5 G/DL RDW (test code = 1038) 12.9 % NEUTROPHILS (test code = 1008) 52.4 % LYMPHOCYTES (test code = 1010) 39.8 % MONOCYTES (test code = 1011) 6.9 % EOSINOPHILS (test code = 1012) 0.6 % BASOPHILS (test code = 1013) 0.3 % PLATELET COUNT (test code = 1015) 242 K/UL CBC W/AUTO [id number] 00:00:00 Test Item Value Reference Range Interpretation Comments WBC (test code = 1001) 9.7 K/UL RBC (test code = 1002) 4.75 M/UL HEMOGLOBIN (test code = 1003) 15.8 G/DL HEMATOCRIT (test code = 1004) 45.8 % MCV (test code = 1005) 96.4 fL MCH (test code = 1006) 33.3 PG MCHC (test code = 1007) 34.5 G/DL RDW (test code = 1038) 12.9 % NEUTROPHILS (test code = 1008) 52.4 % LYMPHOCYTES (test code = 1010) 39.8 % MONOCYTES (test code = 1011) 6.9 % EOSINOPHILS (test code = 1012) 0.6 % BASOPHILS (test code = 1013) 0.3 % PLATELET COUNT (test code = 1015) 242 K/UL COMPREHENSIVE METABOLIC [id number] 00:00:00 Test Item Value Reference Range Interpretation Comments GLUCOSE (test code = 2217) 87 MG/DL BUN (test code = 2208) 12 MG/DL CREATININE (test code = 2214) 1.02 MG/DL eGFR AMER. (test code 76 ML/MIN/1.73 = 29181) eGFR NON- AMER. (test 65 ML/MIN/1.73 code = 14207) CALC BUN/CREAT (test code = 12 RATIO 2235) SODIUM (test code = 2231) 141 MEQ/L POTASSIUM (test code = 2228) 4.1 MEQ/L CHLORIDE (test code = 2215) 107 MEQ/L CARBON DIOXIDE (test code = 25 MEQ/L 2205) CALCIUM (test code = 2209) 9.3 MG/DL PROTEIN, TOTAL (test code = 6.6 G/DL 2228) ALBUMIN (test code = 2201) 4.3 G/DL CALC GLOBULIN (test code = 2.3 G/DL 2240) CALC A/G RATIO (test code = 1.9 RATIO 2234) BILIRUBIN, TOTAL (test code = <0.2 MG/DL 2206) ALKALINE PHOSPHATASE (test 124 U/L code = 2204) AST (test code = 2218) 19 U/L ALT (test code = 2219) 17 U/L COMPREHENSIVE METABOLIC [id number] 00:00:00 Test Item Value Reference Range Interpretation Comments GLUCOSE (test code = 2217) 87 MG/DL BUN (test code = 2208) 12 MG/DL CREATININE (test code = 2214) 1.02 MG/DL eGFR AMER. (test code 76 ML/MIN/1.73 = 36955) eGFR NON- AMER. (test 65 ML/MIN/1.73 code = 78233) CALC BUN/CREAT (test code = 12 RATIO 2235) SODIUM (test code = 2231) 141 MEQ/L POTASSIUM (test code = 2228) 4.1 MEQ/L CHLORIDE (test code = 2215) 107 MEQ/L CARBON DIOXIDE (test code = 25 MEQ/L 2205) CALCIUM (test code = 2209) 9.3 MG/DL PROTEIN, TOTAL (test code = 6.6 G/DL 2228) ALBUMIN (test code = 2201) 4.3 G/DL CALC GLOBULIN (test code = 2.3 G/DL 2239) CALC A/G RATIO (test code = 1.9 RATIO 2233) BILIRUBIN, TOTAL (test code = <0.2 MG/DL 2206) ALKALINE PHOSPHATASE (test 124 U/L code = 2204) AST (test code = 2218) 19 U/L ALT (test code = 2219) 17 U/L CARBAMAZEPINE (TEGRETOL)2019-12-06 00:00:00 Test Item Value Reference Range Interpretation Comments CARBAMAZEPINE (TEGRETOL) (test code 5.4 UG/ML = 3006) CARBAMAZEPINE (TEGRETOL)2019-12-06 00:00:00 Test Item Value Reference Range Interpretation Comments CARBAMAZEPINE (TEGRETOL) (test code 5.4 UG/ML = 3006) CARBAMAZEPINE (TEGRETOL)2019-12-06 00:00:00 Test Item Value Reference Range Interpretation Comments CARBAMAZEPINE (TEGRETOL) (test code 5.4 UG/ML = 3006) CBC W/AUTO [id number] 00:00:00 Test Item Value Reference Range Interpretation Comments WBC (test code = 1001) 9.7 K/UL RBC (test code = 1002) 4.75 M/UL HEMOGLOBIN (test code = 1003) 15.8 G/DL HEMATOCRIT (test code = 1004) 45.8 % MCV (test code = 1005) 96.4 fL MCH (test code = 1006) 33.3 PG MCHC (test code = 1007) 34.5 G/DL RDW (test code = 1038) 12.9 % NEUTROPHILS (test code = 1008) 52.4 % LYMPHOCYTES (test code = 1010) 39.8 % MONOCYTES (test code = 1011) 6.9 % EOSINOPHILS (test code = 1012) 0.6 % BASOPHILS (test code = 1013) 0.3 % PLATELET COUNT (test code = 1015) 242 K/UL CBC W/AUTO [id number] 00:00:00 Test Item Value Reference Range Interpretation Comments WBC (test code = 1001) 9.7 K/UL RBC (test code = 1002) 4.75 M/UL HEMOGLOBIN (test code = 1003) 15.8 G/DL HEMATOCRIT (test code = 1004) 45.8 % MCV (test code = 1005) 96.4 fL MCH (test code = 1006) 33.3 PG MCHC (test code = 1007) 34.5 G/DL RDW (test code = 1038) 12.9 % NEUTROPHILS (test code = 1008) 52.4 % LYMPHOCYTES (test code = 1010) 39.8 % MONOCYTES (test code = 1011) 6.9 % EOSINOPHILS (test code = 1012) 0.6 % BASOPHILS (test code = 1013) 0.3 % PLATELET COUNT (test code = 1015) 242 K/UL CBC W/AUTO [id number] 00:00:00 Test Item Value Reference Range Interpretation Comments WBC (test code = 1001) 9.7 K/UL RBC (test code = 1002) 4.75 M/UL HEMOGLOBIN (test code = 1003) 15.8 G/DL HEMATOCRIT (test code = 1004) 45.8 % MCV (test code = 1005) 96.4 fL MCH (test code = 1006) 33.3 PG MCHC (test code = 1007) 34.5 G/DL RDW (test code = 1038) 12.9 % NEUTROPHILS (test code = 1008) 52.4 % LYMPHOCYTES (test code = 1010) 39.8 % MONOCYTES (test code = 1011) 6.9 % EOSINOPHILS (test code = 1012) 0.6 % BASOPHILS (test code = 1013) 0.3 % PLATELET COUNT (test code = 1015) 242 K/UL COMPREHENSIVE METABOLIC [id number] 00:00:00 Test Item Value Reference Range Interpretation Comments GLUCOSE (test code = 2217) 87 MG/DL BUN (test code = 2208) 12 MG/DL CREATININE (test code = 2214) 1.02 MG/DL eGFR AMER. (test code 76 ML/MIN/1.73 = 62776) eGFR NON- AMER. (test 65 ML/MIN/1.73 code = 28850) CALC BUN/CREAT (test code = 12 RATIO 2235) SODIUM (test code = 2231) 141 MEQ/L POTASSIUM (test code = 2228) 4.1 MEQ/L CHLORIDE (test code = 2215) 107 MEQ/L CARBON DIOXIDE (test code = 25 MEQ/L 2205) CALCIUM (test code = 2209) 9.3 MG/DL PROTEIN, TOTAL (test code = 6.6 G/DL 2228) ALBUMIN (test code = 2201) 4.3 G/DL CALC GLOBULIN (test code = 2.3 G/DL 2239) CALC A/G RATIO (test code = 1.9 RATIO 2234) BILIRUBIN, TOTAL (test code = <0.2 MG/DL 2206) ALKALINE PHOSPHATASE (test 124 U/L code = 2204) AST (test code = 2218) 19 U/L ALT (test code = 2219) 17 U/L COMPREHENSIVE METABOLIC [id number] 00:00:00 Test Item Value Reference Range Interpretation Comments GLUCOSE (test code = 2217) 87 MG/DL BUN (test code = 2208) 12 MG/DL CREATININE (test code = 2214) 1.02 MG/DL eGFR AMER. (test code 76 ML/MIN/1.73 = 20459) eGFR NON- AMER. (test 65 ML/MIN/1.73 code = 18002) CALC BUN/CREAT (test code = 12 RATIO 2235) SODIUM (test code = 2231) 141 MEQ/L POTASSIUM (test code = 2228) 4.1 MEQ/L CHLORIDE (test code = 2215) 107 MEQ/L CARBON DIOXIDE (test code = 25 MEQ/L 220) CALCIUM (test code = 2209) 9.3 MG/DL PROTEIN, TOTAL (test code = 6.6 G/DL 2229) ALBUMIN (test code = 2201) 4.3 G/DL CALC GLOBULIN (test code = 2.3 G/DL 2240) CALC A/G RATIO (test code = 1.9 RATIO 2234) BILIRUBIN, TOTAL (test code = <0.2 MG/DL 220) ALKALINE PHOSPHATASE (test 124 U/L code = 2204) AST (test code = 2218) 19 U/L ALT (test code = 2219) 17 U/L CARBAMAZEPINE (TEGRETOL)2019-12-06 00:00:00 Test Item Value Reference Range Interpretation Comments CARBAMAZEPINE (TEGRETOL) (test code 5.4 UG/ML = 3006) CARBAMAZEPINE (TEGRETOL)2019-12-06 00:00:00 Test Item Value Reference Range Interpretation Comments CARBAMAZEPINE (TEGRETOL) (test code 5.4 UG/ML = 3006) CARBAMAZEPINE (TEGRETOL)2019-12-06 00:00:00 Test Item Value Reference Range Interpretation Comments CARBAMAZEPINE (TEGRETOL) (test code 5.4 UG/ML = 3006) CBC W/AUTO [id number] 00:00:00 Test Item Value Reference Range Interpretation Comments WBC (test code = 1001) 9.7 K/UL RBC (test code = 1002) 4.75 M/UL HEMOGLOBIN (test code = 1003) 15.8 G/DL HEMATOCRIT (test code = 1004) 45.8 % MCV (test code = 1005) 96.4 fL MCH (test code = 1006) 33.3 PG MCHC (test code = 1007) 34.5 G/DL RDW (test code = 1038) 12.9 % NEUTROPHILS (test code = 1008) 52.4 % LYMPHOCYTES (test code = 1010) 39.8 % MONOCYTES (test code = 1011) 6.9 % EOSINOPHILS (test code = 1012) 0.6 % BASOPHILS (test code = 1013) 0.3 % PLATELET COUNT (test code = 1015) 242 K/UL CBC W/AUTO [id number] 00:00:00 Test Item Value Reference Range Interpretation Comments WBC (test code = 1001) 9.7 K/UL RBC (test code = 1002) 4.75 M/UL HEMOGLOBIN (test code = 1003) 15.8 G/DL HEMATOCRIT (test code = 1004) 45.8 % MCV (test code = 1005) 96.4 fL MCH (test code = 1006) 33.3 PG MCHC (test code = 1007) 34.5 G/DL RDW (test code = 1038) 12.9 % NEUTROPHILS (test code = 1008) 52.4 % LYMPHOCYTES (test code = 1010) 39.8 % MONOCYTES (test code = 1011) 6.9 % EOSINOPHILS (test code = 1012) 0.6 % BASOPHILS (test code = 1013) 0.3 % PLATELET COUNT (test code = 1015) 242 K/UL SARS-CoV-2 (COVID-19) by RT-PCR (HIGH RISK)2019-11-12 00:00:00 Test Item Value Reference Range Interpretation Comments SARS-CoV-2 INTERPRETATION NEGATIVE (test code = 90026) SOURCE (test code = 21163) NASOPHARYNGEAL SARS-CoV-2 (COVID-19) by RT-PCR (HIGH RISK)2019-11-12 00:00:00 Test Item Value Reference Range Interpretation Comments SARS-CoV-2 INTERPRETATION NEGATIVE (test code = 31563) SOURCE (test code = 51322) NASOPHARYNGEAL SARS-CoV-2 (COVID-19) by RT-PCR (HIGH RISK)2019-11-12 00:00:00 Test Item Value Reference Range Interpretation Comments SARS-CoV-2 INTERPRETATION NEGATIVE (test code = 72953) SOURCE (test code = 78297) NASOPHARYNGEAL SARS-CoV-2 (COVID-19) by RT-PCR (HIGH RISK)2019-11-12 00:00:00 Test Item Value Reference Range Interpretation Comments SARS-CoV-2 INTERPRETATION NEGATIVE (test code = 87506) SOURCE (test code = 88314) NASOPHARYNGEAL SARS-CoV-2 (COVID-19) by RT-PCR (HIGH RISK)2019-11-12 00:00:00 Test Item Value Reference Range Interpretation Comments SARS-CoV-2 INTERPRETATION NEGATIVE (test code = 19019) SOURCE (test code = 19740) NASOPHARYNGEAL SARS-CoV-2 (COVID-19) by RT-PCR (HIGH RISK)2019-11-12 00:00:00 Test Item Value Reference Range Interpretation Comments SARS-CoV-2 INTERPRETATION NEGATIVE (test code = 88685) SOURCE (test code = 10812) NASOPHARYNGEAL
[2022-09-29 23:03] LABS: Absolute Lymphocytes (CBC) 3.8 K/uL (0.7-4.9); Hematocrit 42.3 % (36.0-45.0); Lymphocytes % 43.8 % (15.3-44.8); MCV 101.8 fL (80-100); MPV 8.4 fL (7.6-11.3); RBC Red Blood Cell Count 4.16 M/uL (3.86-4.86)
[2022-09-29 23:04] LABS: Protime INR 0.95
[2022-09-29 23:21] LABS: ALT/SGPT 19 U/L (13-56); AST/SGOT 15 U/L (15-37); Albumin 3.4 g/dL (3.4-5.0); Alkaline Phosphatase 113 U/L (45-117); BUN Blood Urea Nitrogen 9 mg/dL (7-18); Bicarbonate 24 mEq/L (21-32); Bilirubin Direct 0.1 mg/dL (0-0.2); Bilirubin Indirect, Calculated 0.1 mg/dL (0.2-0.8); Bilirubin Total 0.2 mg/dL (0.2-1.0); Glomerular Filtration Rate 66 ml/min (=/>90); Glucose Level 107 mg/dL (74-106); Potassium 3.3 mEq/L (3.5-5.1); Protein, Total 6.9 g/dL (6.4-8.2); Sodium Level 140 mEq/L (136-145)
[2022-09-29 23:26] LABS: Specific Gravity 1.005 (1.005-1.030); Urine Bilirubin NEGATIVE (Negative); Urine Blood Negative (Negative); Urine Clarity Clear (Clear); Urine Color Light-Yellow (Yellow); Urine Glucose NEGATIVE (Negative); Urine Protein NEGATIVE (Negative); Urine Urobilinogen Normal (Normal)
[2022-09-29 23:34] LABS: Barbiturates NEGATIVE (NEGATIVE); Benzodiazepines NEGATIVE (NEGATIVE); Cocaine NEGATIVE (NEGATIVE); METHAMPHETAM NEGATIVE (NEGATIVE); Methadone NEGATIVE (NEGATIVE); Opiates NEGATIVE (NEGATIVE); Phencyclidine NEGATIVE (NEGATIVE); THC Cannibis NEGATIVE (NEGATIVE)
--- NOTE | 2022-09-30 02:09 | ER ---
Nurse's Notes [facility] Name: Liza Vuong Age: 52 yrs Sex: Female : 1970 Arrival Date: 09/29/2022 Time: 22:23 Bed 16 Private MD: Diagnosis: Acute psychosis Presentation: 09/29 22:26 Chief complaint: EMS states: pt feels like her psych meds aren't working for the past 2 as6 weeks. pt reports feeling like bugs are crawling on her, pt denies SI and HI. Coronavirus screen: At this time, the client does not indicate any symptoms associated with coronavirus-19. Ebola Screen: No symptoms or risks identified at this time. Initial Sepsis Screen: Does the patient have a suspected source of infection? No. Patient's initial sepsis screen is negative. Initial Sepsis Screen: Does the patient meet any 2 criteria? No. Patient's initial sepsis screen is negative. Risk Assessment: Do you want to hurt yourself or someone else? Patient reports no desire to harm self or others. Onset of symptoms was September 15, 2022. 22:26 Acuity: RUDDY 3 as6 22:26 Method Of Arrival: EMS: [facility] as6 09/30 07:00 Risk Assessment: Do you want to hurt yourself or someone else? Patient reports no db desire to harm self or others. 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 LMP N/A - Hysterectomy as6 Historical: - Allergies: 22:26 Latex, Natural Rubber; as6 22:26 PENICILLINS; as6 22:26 Zoloft; as6 - Home Meds: 09/30 09:09 valacyclovir 1 gram oral tablet 1 tab daily [Active]; topiramate 200 mg oral Capsule, ss ER 24 hr [Active]; buspirone 10 mg Oral tablet [Active]; Carbamazepine Oral [Active]; Vraylar 3 mg Oral cap [Active]; - PMHx: 09/29 22:26 COPD; Schizophrenia; HYPOGLYCEMIA; Seizures; bradycardia; Hypercholesterolemia; as6 22:31 TBI; as6 - PSHx: 22:26 section; Total abdominal hysterectomy; hernia; loop recorder; as6 - Immunization history:: Client reports having NOT received the Covid vaccine. - Social history:: Smoking status: Patient reports the use of cigarette tobacco products, smokes one pack cigarettes per day. cigars. Screenin:31 [facility] ED Fall Risk Assessment (Adult) Score/Fall Risk Level 0 - 2 = Low Risk. Abuse as6 screen: Denies threats or abuse. Denies injuries from another. Nutritional screening: No deficits noted. Tuberculosis screening: No symptoms or risk factors identified. Assessment: 22:45 General: Appears in no apparent distress. Behavior is calm, cooperative. Pain: as6 Complains of pain in left hip and right hip Is chronic. Neuro: Level of Consciousness is awake, alert, obeys commands, Oriented to person, place, time, situation, "I feel like there are bugs on me". Cardiovascular: No deficits noted. Respiratory: No deficits noted. GI: No deficits noted. No signs and/or symptoms were reported involving the gastrointestinal system. : No deficits noted. No signs and/or symptoms were reported regarding the genitourinary system. EENT: No deficits noted. No signs and/or symptoms were reported regarding the EENT system. Derm: Reports tingling. 23:45 Reassessment: Patient and/or family updated on plan of care and expected duration. Pain ha1 level reassessed. Patient is alert, oriented x 3, equal unlabored respirations, skin warm/dry/pink. 09/30 00:18 Reassessment: Patient and/or family updated on plan of care and expected duration. Pain ha1 level reassessed. Patient is alert, oriented x 3, equal unlabored respirations, skin warm/dry/pink. 01:30 Reassessment: Patient and/or family updated on plan of care and expected duration. Pain ha1 level reassessed. Patient is alert, oriented x 3, equal unlabored respirations, skin warm/dry/pink. [facility] in the room. 02:20 Reassessment: Patient and/or family updated on plan of care and expected duration. Pain ha1 level reassessed. [facility] accounting representative states " the patient needs some medication to help her relax." Notified Dr. Michel. Dr. Michel states " give 10 mg of Geodon IM.". 03:00 Reassessment: Patient and/or family updated on plan of care and expected duration. Pain ha1 level reassessed. General: Appears comfortable, Behavior is calm, cooperative. Respiratory: Airway is patent Respiratory effort is even, unlabored, Respiratory pattern is regular, symmetrical. 04:00 Reassessment: eyes closed. ha1 04:00 Respiratory: Airway is patent Respiratory effort is even, unlabored, Respiratory ha1 pattern is regular, symmetrical. 05:00 Reassessment: eyes closed. Respiratory: Airway is patent Respiratory effort is even, ha1 unlabored, Respiratory pattern is regular, symmetrical. 06:00 Reassessment: eyes closed. Respiratory: Airway is patent Respiratory effort is even, ha1 unlabored, Respiratory pattern is regular, symmetrical. 07:12 Reassessment: Patient appears in no apparent distress at this time. Patient and/or db family updated on plan of care and expected duration. Pain level reassessed. Patient is alert, oriented x 3, equal unlabored respirations, skin warm/dry/pink. patient is coughing. In NAD. 09:06 Reassessment: Report given to JACK Farr at [facility]. 10:22 Reassessment: Patient appears in no apparent distress at this time. Patient and/or db family updated on plan of care and expected duration. Pain level reassessed. Patient is alert, oriented x 3, equal unlabored respirations, skin warm/dry/pink. EMS here for transport of patient. Vital Signs: 09/29 22:26 BP 147 / 66; Pulse 63; Resp 18 S; Temp 98.1(TE); Pulse Ox 97% on R/A; Weight 89.81 kg as6 (R); Height 5 ft. 4 in. (R); Pain 4/10; 23:41 BP 127 / 81; Pulse 57; Resp 16 S; Pulse Ox 97% on R/A; ha1 23:53 BP 129 / 83; Pulse 77; Resp 21 S; Pulse Ox 95% on R/A; as6 09/30 00:35 BP 125 / 78; Pulse 59; Resp 18 S; Pulse Ox 97% on R/A; ha1 01:30 BP 139 / 82; Pulse 59; Resp 19 S; Pulse Ox 97% on R/A; ha1 02:20 BP 139 / 82; Pulse 61; Resp 18 S; Pulse Ox 99% on R/A; ha1 03:15 BP 107 / 67; Pulse 56; Resp 16 S; Pulse Ox 94% on R/A; ha1 04:00 BP 108 / 71; Pulse 56; Resp 16 S; Pulse Ox 94% on R/A; ha1 05:00 BP 102 / 65; Pulse 52; Resp 13; Pulse Ox 95% on R/A; ha1 06:00 BP 103 / 64; Pulse 52; Resp 15 S; Pulse Ox 98% on R/A; ha1 07:00 BP 120 / 77; Pulse 85; Resp 24; Pulse Ox 93% on 3 lpm NC; db 09:30 BP 113 / 56; Pulse 51; Resp 16; Pulse Ox 100% on R/A; db 09/29 22:26 Body Mass Index 33.99 (89.81 kg, 162.56 cm) as6 09/29 22:26 Pain Scale: Adult as6 ED Course: 09/29 22:24 Patient arrived in ED. as6 22:24 Tom Casillas, RN is Primary Nurse. as6 22:24 Arm band placed on. as6 22:26 Dylon Michel MD is Attending Physician. sp3 22:30 Triage completed. as6 22:31 Bed in low position. Call light in reach. Side rails up X 1. as6 22:43 Inserted saline lock: 20 gauge in left antecubital area, using aseptic technique. Blood as6 collected. 09/30 01:58 Contacted [facility]. 1 hour eta. [facility] 02:25 Contacted [facility] and spoke with Doni. She stated for me to send the [facility] pt's face sheet, physician and nurse notes, and labs. 02:30 Faxed over face sheet, physician and nurse notes, and labs. [facility] 03:25 Called for update, electrical/instrument technician stated that Doni was on a call with a nurse an would [facility] contact me soon. 04:25 Called for update, electrical/instrument technician stated that Doni is working on other transfers that are [facility] ahead of me and would get back to me soon. 06:58 Attending Physician role handed off by Dylon Michel MD [facility] 06:58 Sam Schreiber MD is Attending Physician. [facility] 07:05 Client placed on continuous cardiac and pulse oximetry monitoring. NIBP monitoring db applied. Warm blanket given. 07:12 faxed chart to [facility]. bd 10:23 No provider procedures requiring assistance completed. IV discontinued, intact, db bleeding controlled, No redness/swelling at site. Administered Medications: : Drug: Geodon IM 10 mg Route: IM; Site: right deltoid; ha1 03:00 Follow up: Response: No adverse reaction; RASS: Alert and Calm (0) ha1 Medication: 09/29 22:30 VIS not applicable for this client. as6 Outcome: 09/30 02:09 ER care complete, transfer ordered by . sp3 10:23 Transferred by ground EMS Transfer form completed. Note: to [facility] db 10:23 Condition: stable 10:23 Instructed on the need for transfer. 10:24 Patient left the ED. db Signatures: Rolanda Coleman Corey, MD MD cha Blanchard, Shelby, RN RN ss Dylon Michel MD MD sp3 Tom Casillas RN RN as6 Coleen Baxter RN RN ha1 Nini Vasquez RN RN db Layla Villegas [facility] Corrections: (The following items were deleted from the chart) 09:15 09:09 Home Meds: carbamazepine 200 mg Oral tab 2 tabs daily; ss ss 09:15 09:09 Home Meds: carbamazepine 200 mg Oral tablet 2 tabs daily; ss ss
--- NOTE | 2022-09-30 02:09 | EDPHYS ---
Physician Documentation [facility] Name: Liza Vuong Age: 52 yrs Sex: Female : 1970 Arrival Date: 09/29/2022 Time: 22:23 Bed 16 Private MD: ED Physician Sam Schreiber HPI: 09/29 22:52 This 52 yrs old Female presents to ER via EMS with complaints of Psychosis. [facility] 22:52 52-year-old female with a history of schizophrenia, COPD, seizures now presents to the [facility] ED via EMS for chief complaint of acute on chronic psychosis with "bugs crawling all over me" and kitchen utensils "moving on their own" with also increasing agoraphobia. There has been no changes to patient's medications which are documented in the nursing note. Patient states that she took a cholesterol-lowering medication which "messed her up big-time" after which her PCP remove that medication however she states that since that episode several weeks ago she has had steadily increasing symptoms with the last 24 hours being especially severe. She denies homicidal or suicidal ideation. No other medical complaints including headache, neck pain, fever, URI symptoms, chest pain, shortness of breath, abdominal pain, nausea, vomiting, diarrhea, rash, weakness, bleeding, known sick contacts, travel history, illicit drug use, any other signs or symptoms on review of systems at this time.. 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 - Hysterectomy as6 Historical: - Allergies: 22:26 Latex, Natural Rubber; as 22:26 PENICILLINS; as6 22:26 Zoloft; as6 - Home Meds: 09/30 09:09 valacyclovir 1 gram oral tablet 1 tab daily [Active]; topiramate 200 mg oral Capsule, ss ER 24 hr [Active]; buspirone 10 mg Oral tablet [Active]; Carbamazepine Oral [Active]; Vraylar 3 mg Oral cap [Active]; - PMHx: 09/29 22:26 COPD; Schizophrenia; HYPOGLYCEMIA; Seizures; bradycardia; Hypercholesterolemia; as6 22:31 TBI; as6 - PSHx: 22:26 section; Total abdominal hysterectomy; hernia; loop recorder; as6 - Immunization history:: Client reports having NOT received the Covid vaccine. - Social history:: Smoking status: Patient reports the use of cigarette tobacco products, smokes one pack cigarettes per day. cigars. ROS: 22:54 Constitutional: Negative for fever, chills, and weight loss, Eyes: Negative for injury, sp3 pain, redness, and discharge, ENT: Negative for injury, pain, and discharge, Neck: Negative for injury, pain, and swelling, Cardiovascular: Negative for chest pain, palpitations, and edema, Respiratory: Negative for shortness of breath, cough, wheezing, and pleuritic chest pain, Abdomen/GI: Negative for abdominal pain, nausea, vomiting, diarrhea, and constipation, Back: Negative for injury and pain, : Negative for injury, bleeding, discharge, and swelling, MS/Extremity: Negative for injury and deformity, Skin: Negative for injury, rash, and discoloration, Allergy/Immunology: Negative for hives, rash, and allergies, Endocrine: Negative for neck swelling, polydipsia, polyuria, polyphagia, and marked weight changes. 22:54 All other systems are negative. Exam: 22:54 Constitutional: This is a well developed, well nourished patient who is awake, alert, sp3 and in no acute distress. Head/Face: Normocephalic, atraumatic. Eyes: Pupils equal round and reactive to light, extra-ocular motions intact. Lids and lashes normal. Conjunctiva and sclera are non-icteric and not injected. Cornea within normal limits. Periorbital areas with no swelling, redness, or edema. ENT: Nares patent. No nasal discharge, no septal abnormalities noted. External auditory canals are clear. Oropharynx with no redness, swelling, or masses, exudates, or evidence of obstruction, uvula midline. Mucous membranes moist. Neck: Trachea midline, no thyromegaly or masses palpated, and no cervical lymphadenopathy. Supple, full range of motion without nuchal rigidity, or vertebral point tenderness. No Meningismus. Chest/axilla: Normal chest wall appearance and motion. Nontender with no deformity. No lesions are appreciated. Cardiovascular: Regular rate and rhythm with a normal S1 and S2. No gallops, murmurs, or rubs. Normal PMI, no JVD. No pulse deficits. Respiratory: Lungs have equal breath sounds bilaterally, clear to auscultation and percussion. No rales, rhonchi or wheezes noted. No increased work of breathing, no retractions or nasal flaring. Abdomen/GI: Soft, non-tender, with normal bowel sounds. No distension or tympany. No guarding or rebound. No evidence of tenderness throughout. Back: No spinal tenderness. No costovertebral tenderness. Full range of motion. Skin: Warm, dry with normal turgor. Normal color with no rashes, no lesions, and no evidence of cellulitis. MS/ Extremity: Pulses equal, no cyanosis. Neurovascular intact. Full, normal range of motion. Neuro: Awake and alert, GCS 15, oriented to person, place, time, and situation. Cranial nerves II-XII grossly intact. Motor strength 5/5 in all extremities. Sensory grossly intact. Cerebellar exam normal. Normal gait. 22:54 Psych: Patient is in no acute distress. She denies homicidal or suicidal ideation. She does not appear to be responding to internal stimuli. She does state that she is seeing things moving as documented in the HPI. She also has concurrent sensation of "bugs crawling all over her". Her two-point discrimination is still intact. Remainder of neurological and psychiatric exam are normal.. 22:56 ECG was reviewed by the Attending Physician. EKG demonstrates normal sinus rhythm at 60 sp3 bpm with normal intervals, normal QRS, normal axis, normal ST/T-segment without evidence of acute ischemia. Vital Signs: 22:26 BP 147 / 66; Pulse 63; Resp 18 S; Temp 98.1(TE); Pulse Ox 97% on R/A; Weight 89.81 kg as6 (R); Height 5 ft. 4 in. (R); Pain 4/10; 23:41 BP 127 / 81; Pulse 57; Resp 16 S; Pulse Ox 97% on R/A; ha1 23:53 BP 129 / 83; Pulse 77; Resp 21 S; Pulse Ox 95% on R/A; as6 06 00:35 BP 125 / 78; Pulse 59; Resp 18 S; Pulse Ox 97% on R/A; ha1 01:30 BP 139 / 82; Pulse 59; Resp 19 S; Pulse Ox 97% on R/A; ha1 02:20 BP 139 / 82; Pulse 61; Resp 18 S; Pulse Ox 99% on R/A; ha1 03:15 BP 107 / 67; Pulse 56; Resp 16 S; Pulse Ox 94% on R/A; ha1 04:00 BP 108 / 71; Pulse 56; Resp 16 S; Pulse Ox 94% on R/A; ha1 05:00 BP 102 / 65; Pulse 52; Resp 13; Pulse Ox 95% on R/A; ha1 06:00 BP 103 / 64; Pulse 52; Resp 15 S; Pulse Ox 98% on R/A; ha1 07:00 BP 120 / 77; Pulse 85; Resp 24; Pulse Ox 93% on 3 lpm NC; db 09:30 BP 113 / 56; Pulse 51; Resp 16; Pulse Ox 100% on R/A; db 09/29 22:26 Body Mass Index 33.99 (89.81 kg, 162.56 cm) as6 09/29 22:26 Pain Scale: Adult as6 MDM: 09/29 22:26 Patient medically screened. sp3 22:55 Data reviewed: vital signs, nurses notes. ED course: 52-year-old female with acute on sp3 chronic psychosis with a history of schizophrenia. Will obtain [facility] consultation after medical clearing with laboratory values, urine analysis and general observation. Consider inpatient treatment plan versus close outpatient observation. We will hold on any antipsychotic usage until she is evaluated.. 09/30 02:08 ED course: As per recommendations of [facility] consultants, we will transfer this sp3 patient for inpatient care she meets criteria.. 09/29 22:27 Order name: Acetaminophen; Complete Time: 23:47 3 09/29 22:27 Order name: Basic Metabolic Panel; Complete Time: 23:47 3 09/29 22:27 Order name: CBC with Diff; Complete Time: 23:47 3 09/29 22:27 Order name: ETOH Level; Complete Time: 23:47 3 09/29 22:27 Order name: Hepatic Function; Complete Time: 23:47 3 09/29 22:27 Order name: PT-INR; Complete Time: 23:47 3 09/29 22:27 Order name: Ptt, Activated; Complete Time: 23:47 sp3 09/29 22:27 Order name: Salicylate; Complete Time: 23:47 sp3 09/29 22:27 Order name: Urinalysis w/ reflexes; Complete Time: 23:47 3 09/29 22:27 Order name: Urine Drug Screen; Complete Time: 23:47 sp3 09/29 22:27 Order name: EKG; Complete Time: 22:27 sp3 09/30 08:24 Order name: Diet Finger Food; Complete Time: 08:24 bd 09/29 22:27 Order name: EKG - Nurse/Tech; Complete Time: 22:45 sp3 09/29 22:27 Order name: IV Saline Lock; Complete Time: 22:43 sp3 09/29 22:27 Order name: Labs collected and sent; Complete Time: 22:43 sp3 09/29 22:27 Order name: Suicide Screening ([place]); Complete Time: 22:30 sp3 Administered Medications: 02:27 Drug: Geodon IM 10 mg Route: IM; Site: right deltoid; ha1 03:00 Follow up: Response: No adverse reaction; RASS: Alert and Calm (0) ha1 Disposition Summary: 09/30/22 02:09 Transfer Ordered Transfer Location: Psych Facility sp3 Reason: Higher level of care sp3 Condition: Stable sp3 Problem: an acute exacerbation sp3 Symptoms: have worsened sp3 Accepting Physician: DARIA(09/30/22 10:24) db Diagnosis - Acute psychosis sp3 Forms: - Medication Reconciliation Form sp3 - SBAR form sp3 Signatures: Dispatcher [employer] EDYahaira Hardin RN RN ss Dylon Michel MD MD sp3 Tom Casillas RN RN as6 Coleen Baxter RN RN ha1 Nini Vasquez RN RN db Corrections: (The following items were deleted from the chart) 09:15 09:09 Home Meds: carbamazepine 200 mg Oral tab 2 tabs daily; [facility] 09:15 09:09 Home Meds: carbamazepine 200 mg Oral tablet 2 tabs daily; ss 10:24 02:09 TBD sp3 db
[2022-09-30] MEDS ORDERED: ZIPRASIDONE MESYLA 20 MG/VIAL IM ONE (02:27)
[2022-09-30] MEDS ORDERED: WATER FOR INJ,STERILE 10 ML ONE (02:27)
[2022-09-30] MEDS ORDERED: ONDANSETRON 4 MG/2 ML VIAL ONE (07:00)
[2022-09-30 10:30] VITALS: TEMP 98.1
[2022-09-30 10:50] VITALS: BP 113/56; O2SAT 100
== END 2022-09-30 10:24 ==
LOC: ER 22:23
DX: F23 Brief psychotic disorder (principal); J44.9 Chronic obstructive pulmonary disease, unspecified; F17.210 Nicotine dependence, cigarettes, uncomplicated; Z87.820 Personal history of traumatic brain injury; Z88.0 Allergy status to penicillin; Z88.8 Allergy status to other drugs, medicaments and biological substances; Z91.040 Latex allergy status
CPT/HCPCS: 36415; 80048; 80076; 80143; 80179; 80307; 81003; 82077; 85025; 85610; 85730; J2405; J3486